=== PATIENT | male | born 1975 | race Hispanic/Latino ===

== ENCOUNTER 2018-04-10 16:14 | Emergency (ER) | payer SELFPAY ==
--- OUTSIDE RECORDS SUMMARY | 2018-04-10 16:17 | XMS REPORT | Clinical Summary ---
:[address] [facility] Address [address] [place] [address] Phone Care Team Providers Name Role Phone Unavailable Primary Care Provider Unavailable Allergies No Known Allergies Current Medications Prescription Sig. Disp. Refills Start Date End Date Status folic acid Take 1 tablet 30 tablet 3 04/14/2017 04/14/2018 Active (FOLVITE) 1 MG (1 mg total) tablet by mouth daily. losartan (COZAAR) Take 1 tablet 30 tablet 3 04/14/2017 04/14/2018 Active 25 MG tablet (25 mg total) by mouth daily. magnesium oxide Take 1 tablet 30 tablet 3 04/14/2017 04/14/2018 Active (MAG-OX) 400 mg (400 mg total) tablet by mouth daily. thiamine (VITAMIN Take 1 tablet 30 tablet 3 04/14/2017 04/14/2018 Active B-1) 50 MG tablet (50 mg total) by mouth daily. ALPRAZolam (XANAX) Take 1 tablet 30 tablet 0 04/14/2017 04/14/2017 Discontinued 0.5 MG tablet (0.5 mg total) by mouth 3 (three) times daily as needed for Anxiety for up to 30 days. Max Daily Amount: 1.5 mg folic acid Take 1 tablet 30 tablet 1 04/14/2017 04/14/2017 Discontinued (FOLVITE) 1 MG (1 mg total) tablet by mouth daily. losartan (COZAAR) Take 1 tablet 30 tablet 1 04/14/2017 04/14/2017 Discontinued 25 MG tablet (25 mg total) by mouth daily. thiamine (VITAMIN Take 1 tablet 30 tablet 1 04/14/2017 04/14/2017 Discontinued B-1) 50 MG tablet (50 mg total) by mouth daily. magnesium oxide Take 1 tablet 30 tablet 1 04/14/2017 04/14/2017 Discontinued (MAG-OX) 400 mg (400 mg total) tablet by mouth daily. pantoprazole Take 1 tablet 30 tablet 3 04/14/2017 05/14/2017 (PROTONIX) 40 MG (40 mg total) tablet by mouth daily for 30 days. amoxicillin-clavula Take 1 tablet 14 tablet 0 04/14/2017 04/21/2017 tatiana (AUGMENTIN) by mouth every 875-125 mg per 12 (twelve) tablet hours for 7 days. ALPRAZolam (XANAX) Take 1 tablet 30 tablet 0 04/14/2017 05/14/2017 0.5 MG tablet (0.5 mg total) by mouth 3 (three) times daily as needed for Anxiety for up to 30 days. Max Daily Amount: 1.5 mg predniSONE Take 1 tablet 5 tablet 0 04/14/2017 04/19/2017 (DELTASONE) 20 MG (20 mg total) tablet by mouth daily for 5 days. Active Problems Problem Noted Date Pneumonia, unspecified organism 04/08/2017 Encounters Date Type Specialty Care Team Description 2017 Procedure Pass 2017 Surgery Arslan Saini, BRONCHOSCOPY 04/11/2017 Anesthesia Event Dylan Ordonez MD 04/09/2017 Anesthesia Event Dylan Ordonez MD 04/09/2017 Procedure Pass 04/09/2017 Surgery Jus, UPPER ENDOSCOPY MD Vamsi 04/08/2017 - Hospital Encounter General Internal Bassam, Pneumonia, 04/14/2017 Medicine MD Lonnie unspecified organism Iraj Prado, (Primary Dx);Alcohol withdrawal, with unspecified complication (HCC);Hemoptysis after 04/09/2017 Social History Tobacco Use Types Packs/Day Years Used Date Current Some Day Smoker Cigarettes 0.1 Alcohol Use Drinks/Week oz/Week Comments Yes 120 Cans of beer 72.0 all beers/pt Sex Assigned at Date Recorded Not on file Last Filed Vital Signs Vital Sign Reading Time Taken Blood Pressure 135/92 04/14/2017 12:23 PM CDT Pulse 76 04/14/2017 12:23 PM CDT Temperature 36.7 C (98 F) 04/14/2017 12:23 PM CDT Respiratory Rate 18 04/14/2017 12:23 PM CDT Oxygen Saturation 99% 04/14/2017 12:23 PM CDT Inhaled Oxygen Concentration - - Weight 88.9 kg (196 lb) 2017 10:45 AM CDT Height 172.7 cm (5' 8") 2017 10:45 AM CDT Body Mass Index 29.8 2017 10:45 AM CDT Plan of Treatment Not on file Procedures Procedure Name Priority Date/Time Associated Diagnosis Comments BRONCHOSCOPY 2017 11:00 AM CDT HEMOPTASIS Case Notes BRONCH LAVAGE UPPER ENDOSCOPY 04/09/2017 8:48 AM CDT hematemesis, cirrhosis after 04/09/2017 Results RHYTHM STRIP - SCAN (04/15/2017 4:23 PM)CBC with platelet count + automated diff (04/14/2017 4:33 AM)Only the most recent of5 resultswithin the time period is included. Component Value Ref Range WBC 11.3 (H) 4.0 - 10.0 K/L RBC 4.72 4.20 - 5.80 M/L Hemoglobin 15.0 13.0 - 16.8 GM/DL Hematocrit 45.0 40.0 - 50.0 % MCV 95.3 82.0 - 98.0 fL MCH 31.7 27.0 - 33.0 pg MCHC 33.3 32.0 - 36.0 GM/DL RDW 13.2 12.0 - 15.0 % Platelets 208 150 - 430 K/CU MM MPV 9.2 6.5 - 10.5 fL nRBC 0 0 - 0 /100 WBC % Neutros 75 % % Lymphs 13 % % Monos 12 % % Eos 0 % % Baso 1 % # Neutros 8.40 (H) 1.80 - 8.00 K/L # Lymphs 1.40 (L) 1.48 - 4.50 K/L # Monos 1.30 0.00 - 1.30 K/L # Eos 0.00 0.00 - 0.50 K/L # Baso 0.10 0.00 - 0.20 K/L Specimen Performing Laboratory Blood [facility] [address] [place] [address] CBC with platelet count + automated diff (04/14/2017 4:33 AM)Only the most recent of5 resultswithin the time period is included. Specimen Performing Laboratory Blood Narrative The following orders were created for panel order CBC with platelet count + automated diff. Procedure Abnormality Status --------- ------ CBC with platelet count ...[[id number]]AbnormalFinal result Please view results for these tests on the individual orders. Phosphorus (04/14/2017 4:33 AM)Only the most recent of2 resultswithin the time period is included. Component Value Ref Range Phosphorus 4.7 (H) 2.5 - 4.5 mg/dL Specimen Performing Laboratory [facility] [address] [id number] Magnesium (04/14/2017 4:33 AM)Only the most recent of3 resultswithin the time period is included. Component Value Ref Range Magnesium 2.2 1.5 - 3.0 mg/dL [place] [address] Comprehensive metabolic panel (04/14/2017 4:33 AM)Only the most recent of5 resultswithin the time period is included. Component Value Ref Range Protein, Total 6.5 6.0 - 8.5 gm/dL Albumin 3.6 3.5 - 5.0 g/dL Alkaline Phosphatase 83 30 - 115 U/L Total Bilirubin 0.5 0.1 - 1.3 mg/dL Sodium 139 135 - 148 meq/L Potassium 4.6 3.5 - 5.5 meq/L Chloride 106 98 - 106 meq/L CO2 25 20 - 31 meq/L BUN 9 (L) 10 - 26 mg/dL Creatinine 0.83 0.50 - 1.20 mg/dL Glucose 120 (H) 70 - 110 mg/dL Calcium 8.9 8.5 - 10.5 mg/dL AST 25 5 - 40 U/L ALT 40 6 - 50 U/L EGFR 101Comment: ESTIMATED GFR IS NOT ACCURATE mL/min/1.73 sq m CREATININE CLEARANCE IN PREDICTING GLOMERULAR FILTRATION RATE. ESTIMATED GFR IS NOT APPLICABLE FOR DIALYSIS PATIENTS. Specimen Performing Laboratory [facility] [address] [place] [address] Procalcitonin (04/13/2017 4:31 AM)Only the most recent of2 resultswithin the time period is included. Component Value Ref Range Procalcitonin <0.05 <0.05 ng/mL Specimen Performing Laboratory [address] [place] [address] Narrative SEPSIS RISK (ng/mL) Low:0.05-0.50 Intermediate: 0.51-2.00 High: >=2.01 AFB culture + smear (2017 11:41 AM) Component Value Ref Range Result No acid-fast bacilli isolated in 42 days AFB Smear No acid fast bacilli seen Specimen Performing Laboratory Bronch Washing - Lung, Left Lower Lobe [address] [address] Legionella culture (2017 11:41 AM) Component Value Ref Range Result No Legionella species isolated Specimen Performing Laboratory Bronch Washing - Lung, Left Lower Lobe [address] [address] Bronchial culture + gram stain (2017 11:41 AM) Component Value Ref Range Result 1+ Normal respiratory melvi present Gram Stain Result 1+ WBCs Gram Stain Result No organisms seen Specimen Performing Laboratory Bronch Washing - Lung, Left Lower Lobe [facility] [id number] [place] [address] Virus culture Expected virus: unknown (2017 11:41 AM) Component Value Ref Range Result No virus isolated Specimen Performing Laboratory Bronch Washing - Lung, Left Lower Lobe [address] [address] Narrative This culture screens for the following viruses as appropriate to the specimen submitted: Adenovirus, Cytomegalovirus, Herpes simplex virus, Enterovirus, Respiratory syncytial virus, Varicella-zoster virus, Influenza virus, Parainfluenza viruses. Performing Laboratory: [facility] [employer]. [address] [place] [id number] Search Optimization Analyst: Xander Mendosa MD Fungus culture + smear (2017 11:41 AM) Component Value Ref Range Result No fungus isolated in 28 days Fungus Smear No fungi seen Specimen Performing Laboratory Bronch Washing - Lung, Left Lower Lobe [address] [address] Body fluid cell count with differential (2017 11:41 AM)Only the most recent of3 resultswithin the time period is included. Component Value Ref Range Appearance Bloody (A) Clear Color Red (A) Colorless, Straw RBCs [address] (H) <=1 /uL Adjusted WBC Count 2936 (H) <=5 /cu mm Lining Cells 88 (H) <=1 /cu mm % Segs 28 % % Lymphs 28 % % Monos 42 % % Eos 2 % % Baso 0 % Interpretation No malignant cells identified. Pathologist: Raheem Perkins D.O. (electronic signature) Container Body Fluid EDTA Tube Specimen Performing Laboratory Body Fluid - Lung, Left Lower Lobe [facility] [address] [place] [address] SPIN/CONCENTRATION CHARGE (2017 11:41 AM) Component Value Ref Range Concentration charged Done Specimen Performing Laboratory Bronch Washing - Lung, Left Lower Lobe [facility] [address] [address] Cytology (2017 11:36 AM) Component Value Ref Range Cytology See Separate Report Specimen Performing Laboratory Bronch Washing - Lung, Left Lower Lobe [facility] [address] [place] [address] Cytology (2017 11:36 AM) Component Value Ref Range Case Report Medical Cytology Report Case: [id number] Authorizing Provider:Arslan Saini MD Collected: 2017 1136 Ordering Location: [address] MEDICAL SURGERYReceived: 2017 1252 Pathologist: Raheem Perkins DO Specimen:Lung, Left Lower Lobe DIAGNOSIS LEFT LOWER LOBE LUNG, BRONCHIAL WASHING: - NO MALIGNANT CELLS IDENTIFIED CPT Code(s) 96120 CLINICAL DATA hemoptysis SPECIMEN SOURCE Left lower lobe lung GROSS DESCRIPTION Collected: 2017 1136 Received: 2017 1355 5 ml bloody fluid received fresh; 4 cytospins STATEMENT OF ADEQUACY Satisfactory Gross assessment was performed at [facility], Department of Pathology, [id number] [place] [address], Technical component was performed at [facility], Department of Pathology, [address] [place] [address], Professional component was performed [facility], at Department of Pathology, [address] [place], [place] [address], Specimen Performing Laboratory Bronch Washing - Lung, Left Lower Lobe [facility] [address] [place] [address] XR chest 1 view portable / bedside (2017 4:02 AM) Specimen Performing Laboratory [facility] Narrative FINAL REPORT Examination: RAD, CHEST, 1 VIEW, NON DEPT Indication:cough Comparison: April 08, 2017 Findings: Right jugular central line has been removed. Cardiomediastinal silhouette is normal. No pneumothorax, pleural effusion or consolidation. Bones are normal. Impression: No acute cardiopulmonary process identified. Signed: Luis Patel MD Report Verified Date/Time:2017 04:13:31 Reading Location: [address] Transitional Reading Room Procedure Note Interface, External Ris In - 2017 4:15 AM CDT FINAL REPORT Examination: RAD, CHEST, 1 VIEW, NON DEPT Indication: cough Comparison: April 08, 2017 Findings: Right jugular central line has been removed. Cardiomediastinal silhouette is normal. No pneumothorax, pleural effusion or consolidation. Bones are normal. Impression: No acute cardiopulmonary process identified. Signed: Luis Patel MD Report Verified Date/Time: 2017 04:13:31 Reading Location: [facility] Transitional Reading Room Hemoglobin and hematocrit (2017 4:01 AM)Only the most recent of5 resultswithin the time period is included. Component Value Ref Range Hemoglobin 15.2 13.0 - 16.8 GM/DL Hematocrit 45.7 40.0 - 50.0 % Specimen Performing Laboratory Blood [facility] [address] [place] [address] CT neck soft tissue without & with IV contrast (04/10/2017 5:19 PM) Specimen Performing Laboratory [facility] Impressions : 1. No evident hemorrhage in the neck soft tissues. 2. No suspicious soft tissue mass or cervical adenopathy. 3. Chronic sinus disease and cervical spine degenerative changes. Signed: Renetta Donato MD Report Verified Date/Time:04/10/2017 17:33:18 Reading Location: [address] Neuro Reading Room Narrative FINAL REPORT CT Neck with and without contrast INDICATION: Hemoptysis. TECHNIQUE: Axial pre and post intravenous contrast enhanced CT images of the neck were obtained. Coronal and sagittal reconstruction images were generated. This exam was performed according to our departmental dose optimization program which includes automated exposure control, adjustment of the mA and/or kV according to patient size and/or use of iterative reconstruction technique. COMPARISON: None available. FINDINGS: There is no evident hemorrhage in the neck soft tissues. Specifically, no focal hematoma or hemorrhagic lesion is seen. The uvula is posteriorly displaced against the posterior pharyngeal wall and the vocal cords are apposed due to phase of respiration. Otherwise, no aerodigestive tract mass is seen. There are scattered subcentimeter cervical lymph nodes, but no suspicious adenopathy by size criteria. There is partial fatty atrophy of the submandibular and parotid glands. The thyroid gland is unremarkable. The major cervical vascular structures are patent. Cervical spine degenerative changes are present without high-grade canal stenosis. There is mild chronic ethmoid and maxillary sinus mucosal disease. The mastoid air cells are well aerated. The globes appear proptotic. The imaged brain demonstrates no acute abnormality. There is an incidental unerupted tooth within the hard palate. Procedure Note Interface, External Ris In - 04/10/2017 5:35 PM CDT FINAL REPORT CT Neck with and without contrast INDICATION: Hemoptysis. TECHNIQUE: Axial pre and post intravenous contrast enhanced CT images of the neck were obtained. Coronal and sagittal reconstruction images were generated. This exam was performed according to our departmental dose optimization program which includes automated exposure control, adjustment of the mA and/or kV according to patient size and/or use of iterative reconstruction technique. COMPARISON: None available. FINDINGS: There is no evident hemorrhage in the neck soft tissues. Specifically, no focal hematoma or hemorrhagic lesion is seen. The uvula is posteriorly displaced against the posterior pharyngeal wall and the vocal cords are apposed due to phase of respiration. Otherwise, no aerodigestive tract mass is seen. There are scattered subcentimeter cervical lymph nodes, but no suspicious adenopathy by size criteria. There is partial fatty atrophy of the submandibular and parotid glands. The thyroid gland is unremarkable. The major cervical vascular structures are patent. Cervical spine degenerative changes are present without high-grade canal stenosis. There is mild chronic ethmoid and maxillary sinus mucosal disease. The mastoid air cells are well aerated. The globes appear proptotic. The imaged brain demonstrates no acute abnormality. There is an incidental unerupted tooth within the hard palate. IMPRESSION : 1. No evident hemorrhage in the neck soft tissues. 2. No suspicious soft tissue mass or cervical adenopathy. 3. Chronic sinus disease and cervical spine degenerative changes. Signed: Renetta Donato MD Report Verified Date/Time: 04/10/2017 17:33:18 Reading Location: [facility] C013 Neuro Reading Room chest without IV contrast (04/10/2017 5:05 PM) Specimen Performing Laboratory [employer] Narrative FINAL REPORT CT of the Chest dated 04/10/2017 CLINICAL INFORMATION: coughing blood. evaluate for any interval change. Comment:Axial images of the chest were obtained from thoracic inlet to the upper abdomen without intravenous contrast. This exam was performed according to our departmental dose-optimization program, which includes automated exposure control, adjustment of the mA and/or kV according to patient size and/or use of interactive reconstruction technique. Heart is normal in size.Great vessels are unremarkable. No adenopathy in the mediastinum or perihilar region. Trachea and mainstem bronchi are patent. Subsegmental atelectasis is seen in the lingula and both lung bases. There is interval worsening of groundglass pulmonary parenchyma disease in the left lower lobe. Differential diagnosis for the groundglass pulmonary parenchymal disease is the following: usual interstitial pneumonia, nonspecific interstitial pneumonitis, desquamative interstitial pneumonia, hypersensitivity pneumonitis, pulmonary edema or pulmonary hemorrhage. No pleural effusion or pleural based mass is seen. Visualized upper abdomen demonstrates diffusely decreased attenuation in the liver consistent with fatty hepatic infiltrate. Impression: 1. Interval worsening of the groundglass pulmonary parenchyma disease in the left lower lobe. 2. Bibasilar and lingular subsegmental atelectasis. 3. Fatty liver. Signed: Mell Vera MD Report Verified Date/Time:04/10/2017 17:30:27 Reading Location: [facility] B1 C013X Ortho Consult Reading Room Procedure Note Interface, External Ris In - 04/10/2017 5:32 PM CDT FINAL REPORT CT of the Chest dated 04/10/2017 CLINICAL INFORMATION: coughing blood. evaluate for any interval change. Comment: Axial images of the chest were obtained from thoracic inlet to the upper abdomen without intravenous contrast. This exam was performed according to our departmental dose-optimization program, which includes automated exposure control, adjustment of the mA and/or kV according to patient size and/or use of interactive reconstruction technique. Heart is normal in size. Great vessels are unremarkable. No adenopathy in the mediastinum or perihilar region. Trachea and mainstem bronchi are patent. Subsegmental atelectasis is seen in the lingula and both lung bases. There is interval worsening of groundglass pulmonary parenchyma disease in the left lower lobe. Differential diagnosis for the groundglass pulmonary parenchymal disease is the following: usual interstitial pneumonia, nonspecific interstitial pneumonitis, desquamative interstitial pneumonia, hypersensitivity pneumonitis, pulmonary edema or pulmonary hemorrhage. No pleural effusion or pleural based mass is seen. Visualized upper abdomen demonstrates diffusely decreased attenuation in the liver consistent with fatty hepatic infiltrate. Impression: 1. Interval worsening of the groundglass pulmonary parenchyma disease in the left lower lobe. 2. Bibasilar and lingular subsegmental atelectasis. 3. Fatty liver. Signed: Mell Vera MD Report Verified Date/Time: 04/10/2017 17:30:27 Reading Location: [facility] B1 C013X Ortho Consult Reading Room SFUSION SERVICE REPORT - SCAN (04/09/2017 5:40 PM)Central Line Insertion ( 04/09/2017 9:48 AM) Anna Padron NP 04/08/2017 11:39 PM CENTRAL LINE PLACEMENT Patient: Virgil Ryan Age: 41 y.o. Date: 04/08/2017 Procedure: Central Line Placement Site: internal jugular vein, Right Diagnosis/Indication: Poor venous access, multiple incompatible IVPB, blood product repletion in the setting of GIB Consent: This procedure, risks, benefits and alternatives have been fully reviewed with the Patient/Family and written informed consent has been obtained. Anesthesia: 2 ml of 1% lidocaine Ultrasound: Used Procedure note: The site was prepped and draped in a sterile fashion with chlorhexidine. Right internal jugular vein access done with finder needle. Good blood return was seen. Guidewire inserted and needle removed. Path dilated with dilator. Triple lumen catheter inserted over guidewire and guidewire removed. Good blood return in all ports. Ports flushed with saline. Catheter secured in position at 15 cm with sutures. Dressing placed. Plan: chest X-ray pending EBL: 1 ml Complications: None Anna Gilmore NP 04/08/2017 11:37 PM Prothrombin time/INR (04/09/2017 3:55 AM) Component Value Ref Range Protime 16.7 (H) 11.8 - 14.4 seconds INR 1.4 1.2 - 1.5 Specimen Performing Laboratory Blood [facility] [address] [place] [address] Narrative RECOMMENDED COUMADIN/WARFARIN INR THERAPY RANGES STANDARD DOSE: 2.0 - 3.0 Includes: PROPHYLAXIS for venous thrombosis, systemic embolization; TREATMENT for venous thrombosis and/or pulmonary embolus. HIGH RISK: Target INR is 2.5-3.5 for patients with mechanical heart valves. after 04/09/2017
--- OUTSIDE RECORDS SUMMARY | 2018-04-10 16:18 | XMS REPORT ---
:1975 [facility] Address [address] [place] [address] Care Team Providers Name Role Phone CHANTAL MACIAS Unavailable Unavailable Problems This patient has no known problems. Allergies, Adverse Reactions, Alerts This patient has no known allergies or adverse reactions. Medications This patient has no known medications. Results Test Description Test Time Test Comments Text Results Atomic Results Result Comments AFB CULTURE + SMEAR 2017-05-30 17:17:00 Test Item Value Reference Range Comments CULTURE (BEAKER) (test jfex=9334) No acid-fast bacilli isolated in 42 days AFB SMEAR (BEAKER) (test kgxi=293) No acid fast bacilli seen VIRUS [id number] 12:44:00 Test Item Value Reference Range Comments CULTURE (BEAKER) (test ijod=8244) No virus isolated This culture screens for the following viruses as appropriate to the specimen submitted: Adenovirus,Cytomegalovirus, Herpes simplex virus, Enterovirus, Respiratory syncytial virus, Varicella-zoster virus, Influenza virus, Parainfluenza viruses. Performing Laboratory: [facility], [employer]. [address] [place] [id number] Net C Developer: Xander THORNTON CULTURE + [id number] 07:57:00 Test Item Value Reference Range Comments CULTURE (BEAKER) (test No fungus isolated in 28 days sqzx=0349) FUNGUS SMEAR (BEAKER) (test No fungi seen tofb=0922) LEGIONELLA [id number] 14:56:00 Test Item Value Reference Range Comments CULTURE (BEAKER) (test No Legionella species isolated dijp=1006) BRONCHIAL CULTURE + GRAM [id number] 13:37:00 Test Item Value Reference Range Comments CULTURE (BEAKER) (test 1+ Normal respiratory melvi rlea=9739) present GRAM STAIN RESULT (BEAKER) 1+ WBCs (test wupu=1806) GRAM STAIN RESULT (BEAKER) No organisms seen (test siuc=49610) [id number] 05:12:00 Test Item Value Reference Range Comments PHOSPHORUS (BEAKER) (test vnzc=591) 4.7 mg/dL 2.5-4.5 [id number] 05:12:00 Test Item Value Reference Range Comments MAGNESIUM (BEAKER) (test iuew=443) 2.2 mg/dL 1.5-3.0 COMPREHENSIVE METABOLIC [id number] 05:12:00 Test Item Value Reference Range Comments TOTAL PROTEIN (BEAKER) 6.5 gm/dL 6.0-8.5 (test ogfg=846) ALBUMIN (BEAKER) (test 3.6 g/dL 3.5-5.0 rlme=0387) ALKALINE PHOSPHATASE 83 U/L 30-115 (BEAKER) (test ncwk=283) BILIRUBIN TOTAL (BEAKER) 0.5 mg/dL 0.1-1.3 (test jthu=532) SODIUM (BEAKER) (test 139 meq/L 135-148 dtgx=412) POTASSIUM (BEAKER) (test 4.6 meq/L 3.5-5.5 fpyb=403) CHLORIDE (BEAKER) (test 106 meq/L 98-106 klkt=842) CO2 (BEAKER) (test 25 meq/L 20-31 gquf=452) BLOOD UREA NITROGEN 9 mg/dL 10-26 (BEAKER) (test odxz=585) CREATININE (BEAKER) (test 0.83 mg/dL 0.50-1.20 hgyu=396) GLUCOSE RANDOM (BEAKER) 120 mg/dL 70-110 (test bjpw=937) CALCIUM (BEAKER) (test 8.9 mg/dL 8.5-10.5 cbad=756) AST (SGOT) (BEAKER) (test 25 U/L 5-40 xgia=058) ALT (SGPT) (BEAKER) (test 40 U/L 6-50 godu=556) EGFR (BEAKER) (test 101 mL/min/1.73 sq ESTIMATED GFR IS NOT czjl=5878) m ACCURATE CREATININE CLEARANCE IN PREDICTING GLOMERULAR FILTRATION RATE. ESTIMATED GFR IS NOT APPLICABLE FOR DIALYSIS PATIENTS. CBC W/PLT COUNT & AUTO [id number] 04:43:00 Test Item Value Reference Range Comments WHITE BLOOD CELL COUNT (BEAKER) (test qbhp=312) 11.3 K/ L 4.0-10.0 RED BLOOD CELL COUNT (BEAKER) (test obgh=374) 4.72 M/ L 4.20-5.80 HEMOGLOBIN (BEAKER) (test maqf=058) 15.0 GM/DL 13.0-16.8 HEMATOCRIT (BEAKER) (test pgro=813) 45.0 % 40.0-50.0 MEAN CORPUSCULAR VOLUME (BEAKER) (test lrzf=250) 95.3 fL 82.0-98.0 MEAN CORPUSCULAR HEMOGLOBIN (BEAKER) (test 31.7 pg 27.0-33.0 dyvr=338) MEAN CORPUSCULAR HEMOGLOBIN CONC (BEAKER) (test 33.3 GM/DL 32.0-36.0 hwiy=108) RED CELL DISTRIBUTION WIDTH (BEAKER) (test 13.2 % 12.0-15.0 gvjf=354) PLATELET COUNT (BEAKER) (test kmzs=606) 208 K/CU MM 150-430 MEAN PLATELET VOLUME (BEAKER) (test mskq=801) 9.2 fL 6.5-10.5 NUCLEATED RED BLOOD CELLS (BEAKER) (test 0 /100 WBC 0-0 ersl=623) NEUTROPHILS RELATIVE PERCENT (BEAKER) (test 75 % neec=773) LYMPHOCYTES RELATIVE PERCENT (BEAKER) (test 13 % aftg=296) MONOCYTES RELATIVE PERCENT (BEAKER) (test 12 % jeus=150) EOSINOPHILS RELATIVE PERCENT (BEAKER) (test 0 % hddv=765) BASOPHILS RELATIVE PERCENT (BEAKER) (test 1 % symp=138) NEUTROPHILS ABSOLUTE COUNT (BEAKER) (test 8.40 K/ L 1.80-8.00 ywnn=983) LYMPHOCYTES ABSOLUTE COUNT (BEAKER) (test 1.40 K/ L 1.48-4.50 ecbe=985) MONOCYTES ABSOLUTE COUNT (BEAKER) (test 1.30 K/ L 0.00-1.30 whew=684) EOSINOPHILS ABSOLUTE COUNT (BEAKER) (test 0.00 K/ L 0.00-0.50 zsxc=415) BASOPHILS ABSOLUTE COUNT (BEAKER) (test 0.10 K/ L 0.00-0.20 nvku=036) SPIN/CONCENTRATION [id number] 14:08:00 Test Item Value Reference Range Comments CONCENTRATION CHARGED (BEAKER) (test uryr=1951) Done [id number] 05:23:00 Test Item Value Reference Range Comments PROCALCITONIN (BEAKER) (test mkkj=3297) < ng/mL <0.05 SEPSIS RISK (ng/mL)Low: 0.05-0.50Intermediate: 0.51-2.00High: & gt;=[id number] 05:07:00 Test Item Value Reference Range Comments PHOSPHORUS (BEAKER) (test mgql=825) 4.2 mg/dL 2.5-4.5 [id number] 05:07:00 Test Item Value Reference Range Comments MAGNESIUM (BEAKER) (test gcmj=274) 2.3 mg/dL 1.5-3.0 COMPREHENSIVE METABOLIC [id number] 05:07:00 Test Item Value Reference Range Comments TOTAL PROTEIN (BEAKER) 6.7 gm/dL 6.0-8.5 (test gvht=040) ALBUMIN (BEAKER) (test 3.7 g/dL 3.5-5.0 rkqh=9399) ALKALINE PHOSPHATASE 70 U/L 30-115 (BEAKER) (test buoq=796) BILIRUBIN TOTAL (BEAKER) 0.6 mg/dL 0.1-1.3 (test vyhk=028) SODIUM (BEAKER) (test 138 meq/L 135-148 potw=566) POTASSIUM (BEAKER) (test 4.5 meq/L 3.5-5.5 xvtm=782) CHLORIDE (BEAKER) (test 105 meq/L 98-106 estv=912) CO2 (BEAKER) (test 24 meq/L 20-31 onda=169) BLOOD UREA NITROGEN 10 mg/dL 10-26 (BEAKER) (test vdne=208) CREATININE (BEAKER) (test 0.85 mg/dL 0.50-1.20 fali=910) GLUCOSE RANDOM (BEAKER) 167 mg/dL 70-110 (test dnhh=654) CALCIUM (BEAKER) (test 8.9 mg/dL 8.5-10.5 zhzx=356) AST (SGOT) (BEAKER) (test 27 U/L 5-40 vamq=174) ALT (SGPT) (BEAKER) (test 39 U/L 6-50 cpmh=639) EGFR (BEAKER) (test 98 mL/min/1.73 sq m ESTIMATED GFR IS NOT bnza=0629) ACCURATE CREATININE CLEARANCE IN PREDICTING GLOMERULAR FILTRATION RATE. ESTIMATED GFR IS NOT APPLICABLE FOR DIALYSIS PATIENTS. CBC W/PLT COUNT & AUTO [id number] 04:41:00 Test Item Value Reference Range Comments WHITE BLOOD CELL COUNT (BEAKER) (test bniv=088) 10.8 K/ L 4.0-10.0 RED BLOOD CELL COUNT (BEAKER) (test ukiu=916) 4.55 M/ L 4.20-5.80 HEMOGLOBIN (BEAKER) (test tuwx=195) 14.4 GM/DL 13.0-16.8 HEMATOCRIT (BEAKER) (test fhve=625) 43.8 % 40.0-50.0 MEAN CORPUSCULAR VOLUME (BEAKER) (test evgi=125) 96.2 fL 82.0-98.0 MEAN CORPUSCULAR HEMOGLOBIN (BEAKER) (test 31.7 pg 27.0-33.0 gpct=739) MEAN CORPUSCULAR HEMOGLOBIN CONC (BEAKER) (test 33.0 GM/DL 32.0-36.0 kyvs=910) RED CELL DISTRIBUTION WIDTH (BEAKER) (test 12.8 % 12.0-15.0 hpih=969) PLATELET COUNT (BEAKER) (test linn=760) 199 K/CU MM 150-430 MEAN PLATELET VOLUME (BEAKER) (test trvt=032) 9.3 fL 6.5-10.5 NUCLEATED RED BLOOD CELLS (BEAKER) (test 0 /100 WBC 0-0 vxkw=902) NEUTROPHILS RELATIVE PERCENT (BEAKER) (test 82 % fptq=835) LYMPHOCYTES RELATIVE PERCENT (BEAKER) (test 9 % bbxo=038) MONOCYTES RELATIVE PERCENT (BEAKER) (test 9 % rypu=528) EOSINOPHILS RELATIVE PERCENT (BEAKER) (test 0 % mqzz=891) BASOPHILS RELATIVE PERCENT (BEAKER) (test 1 % kymo=281) NEUTROPHILS ABSOLUTE COUNT (BEAKER) (test 8.80 K/ L 1.80-8.00 auhw=457) LYMPHOCYTES ABSOLUTE COUNT (BEAKER) (test 1.00 K/ L 1.48-4.50 hljo=410) MONOCYTES ABSOLUTE COUNT (BEAKER) (test 0.90 K/ L 0.00-1.30 fvpl=167) EOSINOPHILS ABSOLUTE COUNT (BEAKER) (test 0.00 K/ L 0.00-0.50 yvxd=466) BASOPHILS ABSOLUTE COUNT (BEAKER) (test 0.10 K/ L 0.00-0.20 svgd=430) [id number] 16:44:00Medical Cytology Report Case: [id number] Authorizing Provider: Arslan Saini MD Collected: 2017 1136 Ordering Location: [address] MEDICAL SURGERY Received: 2017 1252 Pathologist: Raheem Perkins DO Specimen: Lung, Left Lower Lobe LEFT LOWER LOBE LUNG, BRONCHIAL WASHING: - NO MALIGNANT CELLS IDENTIFIED [id number] lower lobe lungCollected : 2017 1136Received: 2017 71982 ml bloody fluid received fresh; [address] cytospinsSatisfactorySt. [facility], [facility] , [address] [place] [address], [facility], Department of Pathology, [address] [place] [address], [facility], Department of Pathology, [address] [place] [address], AWCN FLUID CELL COUNT WITH [id number] 16:38:00 Test Item Value Reference Range Comments APPEARANCE FLUID (BEAKER) (test Bloody Clear sept=485) COLOR FLUID (BEAKER) (test Red Colorless, Straw ooyl=944) RBC FLUID (BEAKER) (test 01245 /uL <=1 uacu=320) ADJUSTED WBC FLUID (BEAKER) 1328 /cu mm <=5 (test crwf=4790) LINING CELLS (BEAKER) (test 133 /cu mm <=1 fzbi=0974) NEUTROPHILS FLUID (BEAKER) 43 % (test qlgh=2966) LYMPHS FLUID (BEAKER) (test 27 % urbj=018) MONO/MACROPHAGE FLUID (BEAKER) 29 % (test bcro=515) EOSINOPHILS FLUID (BEAKER) 1 % (test kerf=525) BASO FLUID (BEAKER) (test 0 % ffkw=363) INTERPRETATION-210 (BEAKER) No malignant cells (test uykg=7586) identified. AHKE-GWXEQHLAWYC-024 (BEAKER) Raheem Perkins D.O. (test qiim=8438) (electronic signature) CONTAINER BODY FLUID (BEAKER) EDTA Tube (test vjzp=2577) BODY FLUID CELL COUNT WITH [id number] 16:38:00 Test Item Value Reference Range Comments APPEARANCE FLUID (BEAKER) (test Bloody Clear ocjg=878) COLOR FLUID (BEAKER) (test Red Colorless, Straw dyti=391) RBC FLUID (BEAKER) (test 02447 /uL <=1 saub=321) ADJUSTED WBC FLUID (BEAKER) 2751 /cu mm <=5 (test dxth=2848) LINING CELLS (BEAKER) (test 275 /cu mm <=1 qozj=5352) NEUTROPHILS FLUID (BEAKER) 28 % (test vamf=0931) LYMPHS FLUID (BEAKER) (test 37 % rnds=207) MONO/MACROPHAGE FLUID (BEAKER) 35 % (test dbzm=815) EOSINOPHILS FLUID (BEAKER) 0 % (test lfth=691) BASO FLUID (BEAKER) (test 0 % cdrd=163) INTERPRETATION-210 (BEAKER) No malignant cells (test livj=2174) identified. WVTA-GNDCGQXSUTW-389 (BEAKER) Raheem Perkins D.O. (test qijv=5721) (electronic signature) CONTAINER BODY FLUID (BEAKER) EDTA Tube (test lwvi=1197) BODY FLUID CELL COUNT WITH [id number] 16:38:00 Test Item Value Reference Range Comments APPEARANCE FLUID (BEAKER) (test Bloody Clear tuww=987) COLOR FLUID (BEAKER) (test Red Colorless, Straw qybs=085) RBC FLUID (BEAKER) (test 86781 /uL <=1 kdho=757) ADJUSTED WBC FLUID (BEAKER) 2936 /cu mm <=5 (test dgro=5429) LINING CELLS (BEAKER) (test 88 /cu mm <=1 vuzi=0602) NEUTROPHILS FLUID (BEAKER) 28 % (test zigh=2810) LYMPHS FLUID (BEAKER) (test 28 % xjye=741) MONO/MACROPHAGE FLUID (BEAKER) 42 % (test tuit=916) EOSINOPHILS FLUID (BEAKER) 2 % (test heut=892) BASO FLUID (BEAKER) (test 0 % ujhs=917) INTERPRETATION-210 (BEAKER) No malignant cells (test ivfh=2135) identified. LIXJ-SCHEVKGJHNG-986 (BEAKER) Raheem Perkins D.O. (test vssh=8207) (electronic signature) CONTAINER BODY FLUID (BEAKER) EDTA Tube (test pymj=1744) CYTOLOGY [id number] 14:00:00 Test Item Value Reference Range Comments CYTOLOGY RESULT POINTER (BEAKER) (test See Separate Report cryr=7415) HEMOGLOBIN AND [id number] 04:44:00 Test Item Value Reference Range Comments HEMOGLOBIN (BEAKER) (test ycdj=091) 15.2 GM/DL 13.0-16.8 HEMATOCRIT (BEAKER) (test vqwm=953) 45.7 % 40.0-50.0 HEMOGLOBIN AND [id number] 14:28:00 Test Item Value Reference Range Comments HEMOGLOBIN (BEAKER) (test ijrn=081) 16.1 GM/DL 13.0-16.8 HEMATOCRIT (BEAKER) (test wdgr=980) 49.2 % 40.0-50.0 COMPREHENSIVE METABOLIC [id number] 05:58:00 Test Item Value Reference Range Comments TOTAL PROTEIN (BEAKER) 7.1 gm/dL 6.0-8.5 (test zzww=371) ALBUMIN (BEAKER) (test 3.9 g/dL 3.5-5.0 bvsf=1545) ALKALINE PHOSPHATASE 57 U/L 30-115 (BEAKER) (test zgpw=880) BILIRUBIN TOTAL (BEAKER) 0.9 mg/dL 0.1-1.3 (test nujd=604) SODIUM (BEAKER) (test 139 meq/L 135-148 irdy=464) POTASSIUM (BEAKER) (test 4.2 meq/L 3.5-5.5 umgd=286) CHLORIDE (BEAKER) (test 104 meq/L 98-106 wfdh=593) CO2 (BEAKER) (test 27 meq/L 20-31 apuw=128) BLOOD UREA NITROGEN 8 mg/dL 10-26 (BEAKER) (test sgsk=812) CREATININE (BEAKER) (test 0.84 mg/dL 0.50-1.20 ymmm=238) GLUCOSE RANDOM (BEAKER) 121 mg/dL 70-110 (test uvcn=667) CALCIUM (BEAKER) (test 9.0 mg/dL 8.5-10.5 ncoy=456) AST (SGOT) (BEAKER) (test 32 U/L 5-40 feyj=527) ALT (SGPT) (BEAKER) (test 46 U/L 6-50 xvbs=324) EGFR (BEAKER) (test 100 mL/min/1.73 sq ESTIMATED GFR IS NOT ycnm=5857) m ACCURATE CREATININE CLEARANCE IN PREDICTING GLOMERULAR FILTRATION RATE. ESTIMATED GFR IS NOT APPLICABLE FOR DIALYSIS PATIENTS. CBC W/PLT COUNT & AUTO [id number] 05:34:00 Test Item Value Reference Range Comments WHITE BLOOD CELL COUNT (BEAKER) (test fmlh=701) 9.2 K/ L 4.0-10.0 RED BLOOD CELL COUNT (BEAKER) (test mcvk=120) 4.76 M/ L 4.20-5.80 HEMOGLOBIN (BEAKER) (test kjrm=206) 14.9 GM/DL 13.0-16.8 HEMATOCRIT (BEAKER) (test hfab=890) 45.2 % 40.0-50.0 MEAN CORPUSCULAR VOLUME (BEAKER) (test mvjw=447) 95.0 fL 82.0-98.0 MEAN CORPUSCULAR HEMOGLOBIN (BEAKER) (test 31.4 pg 27.0-33.0 igpk=987) MEAN CORPUSCULAR HEMOGLOBIN CONC (BEAKER) (test 33.0 GM/DL 32.0-36.0 klbd=804) RED CELL DISTRIBUTION WIDTH (BEAKER) (test 12.8 % 12.0-15.0 ckaj=527) PLATELET COUNT (BEAKER) (test wmtq=851) 162 K/CU MM 150-430 MEAN PLATELET VOLUME (BEAKER) (test rigg=885) 9.1 fL 6.5-10.5 NUCLEATED RED BLOOD CELLS (BEAKER) (test 0 /100 WBC 0-0 zqdu=860) NEUTROPHILS RELATIVE PERCENT (BEAKER) (test 81 % umgl=524) LYMPHOCYTES RELATIVE PERCENT (BEAKER) (test 9 % mtal=261) MONOCYTES RELATIVE PERCENT (BEAKER) (test 9 % slcw=969) EOSINOPHILS RELATIVE PERCENT (BEAKER) (test 0 % izto=965) BASOPHILS RELATIVE PERCENT (BEAKER) (test 0 % diid=918) NEUTROPHILS ABSOLUTE COUNT (BEAKER) (test 7.50 K/ L 1.80-8.00 vprn=247) LYMPHOCYTES ABSOLUTE COUNT (BEAKER) (test 0.90 K/ L 1.48-4.50 qgcj=152) MONOCYTES ABSOLUTE COUNT (BEAKER) (test 0.80 K/ L 0.00-1.30 cryz=541) EOSINOPHILS ABSOLUTE COUNT (BEAKER) (test 0.00 K/ L 0.00-0.50 prad=958) BASOPHILS ABSOLUTE COUNT (BEAKER) (test 0.00 K/ L 0.00-0.20 hjfo=100) HEMOGLOBIN AND [id number] 05:33:00 Test Item Value Reference Range Comments HEMOGLOBIN (BEAKER) (test bdkc=182) 14.9 GM/DL 13.0-16.8 HEMATOCRIT (BEAKER) (test rzlb=686) 45.2 % 40.0-50.0 SPUTUM CULTURE + GRAM [id number] 13:19:00 Test Item Value Reference Range Comments CULTURE (BEAKER) 1+ Streptococcus not group A (test fclx=1460) beta hemolyticIdentified by serological grouping. GRAM STAIN RESULT 1+ WBCs (BEAKER) (test vefs=3570) GRAM STAIN RESULT 0-5 epithelial cells (BEAKER) (test sakn=289585) GRAM STAIN RESULT 1+ gram positive (BEAKER) (test cocci in pairs owlg=241443) GRAM STAIN RESULT <1+ gram negative (BEAKER) (test rods niga=608904) 3+ Normal respiratory melvi presentCOMPREHENSIVE METABOLIC [id number] 04:42 :00 Test Item Value Reference Range Comments TOTAL PROTEIN (BEAKER) 7.1 gm/dL 6.0-8.5 (test ixmn=097) ALBUMIN (BEAKER) (test 3.9 g/dL 3.5-5.0 izao=5348) ALKALINE PHOSPHATASE 62 U/L 30-115 (BEAKER) (test ndlj=486) BILIRUBIN TOTAL (BEAKER) 1.2 mg/dL 0.1-1.3 (test qnfy=639) SODIUM (BEAKER) (test 138 meq/L 135-148 uyfi=439) POTASSIUM (BEAKER) (test 3.5 meq/L 3.5-5.5 ieua=290) CHLORIDE (BEAKER) (test 103 meq/L 98-106 dpaz=128) CO2 (BEAKER) (test 25 meq/L 20-31 celx=428) BLOOD UREA NITROGEN 9 mg/dL 10-26 (BEAKER) (test oxkf=987) CREATININE (BEAKER) (test 0.88 mg/dL 0.50-1.20 wlfp=381) GLUCOSE RANDOM (BEAKER) 93 mg/dL 70-110 (test nbzc=772) CALCIUM (BEAKER) (test 8.7 mg/dL 8.5-10.5 fiyt=804) AST (SGOT) (BEAKER) (test 40 U/L 5-40 vnoi=827) ALT (SGPT) (BEAKER) (test 54 U/L 6-50 hixv=577) EGFR (BEAKER) (test 95 mL/min/1.73 sq m ESTIMATED GFR IS NOT fhgl=0141) ACCURATE CREATININE CLEARANCE IN PREDICTING GLOMERULAR FILTRATION RATE. ESTIMATED GFR IS NOT APPLICABLE FOR DIALYSIS PATIENTS. HEMOGLOBIN AND [id number] 04:14:00 Test Item Value Reference Range Comments HEMOGLOBIN (BEAKER) (test esqj=822) 15.1 GM/DL 13.0-16.8 HEMATOCRIT (BEAKER) (test dbns=443) 45.8 % 40.0-50.0 CBC W/PLT COUNT & AUTO [id number] 04:14:00 Test Item Value Reference Range Comments WHITE BLOOD CELL COUNT (BEAKER) (test kvln=747) 7.8 K/ L 4.0-10.0 RED BLOOD CELL COUNT (BEAKER) (test jzma=212) 4.79 M/ L 4.20-5.80 HEMOGLOBIN (BEAKER) (test vsli=777) 15.1 GM/DL 13.0-16.8 HEMATOCRIT (BEAKER) (test ewhr=391) 45.8 % 40.0-50.0 MEAN CORPUSCULAR VOLUME (BEAKER) (test ggov=983) 95.7 fL 82.0-98.0 MEAN CORPUSCULAR HEMOGLOBIN (BEAKER) (test 31.6 pg 27.0-33.0 hbbt=400) MEAN CORPUSCULAR HEMOGLOBIN CONC (BEAKER) (test 33.1 GM/DL 32.0-36.0 mfld=466) RED CELL DISTRIBUTION WIDTH (BEAKER) (test 12.8 % 12.0-15.0 uwpq=363) PLATELET COUNT (BEAKER) (test pilb=599) 132 K/CU MM 150-430 MEAN PLATELET VOLUME (BEAKER) (test hisy=102) 9.3 fL 6.5-10.5 NUCLEATED RED BLOOD CELLS (BEAKER) (test 0 /100 WBC 0-0 yuag=309) NEUTROPHILS RELATIVE PERCENT (BEAKER) (test 70 % izxi=768) LYMPHOCYTES RELATIVE PERCENT (BEAKER) (test 16 % ekhq=395) MONOCYTES RELATIVE PERCENT (BEAKER) (test 10 % ufne=921) EOSINOPHILS RELATIVE PERCENT (BEAKER) (test 3 % bjon=664) BASOPHILS RELATIVE PERCENT (BEAKER) (test 1 % qxlq=908) NEUTROPHILS ABSOLUTE COUNT (BEAKER) (test 5.50 K/ L 1.80-8.00 afnh=424) LYMPHOCYTES ABSOLUTE COUNT (BEAKER) (test 1.30 K/ L 1.48-4.50 qgvv=263) MONOCYTES ABSOLUTE COUNT (BEAKER) (test 0.80 K/ L 0.00-1.30 ftdv=359) EOSINOPHILS ABSOLUTE COUNT (BEAKER) (test 0.20 K/ L 0.00-0.50 zxjw=082) BASOPHILS ABSOLUTE COUNT (BEAKER) (test 0.10 K/ L 0.00-0.20 exuh=901) HEMOGLOBIN AND [id number] 23:14:00 Test Item Value Reference Range Comments HEMOGLOBIN (BEAKER) (test qjzv=768) 14.7 GM/DL 13.0-16.8 HEMATOCRIT (BEAKER) (test qjvd=624) 44.1 % 40.0-50.0 [id number] 04:49:00 Test Item Value Reference Range Comments PROCALCITONIN (BEAKER) (test wljs=7567) 0.16 ng/mL <0.05 SEPSIS RISK (ng/mL)Low: 0.05-0.50Intermediate: 0.51-2.00High: & gt;=[id number] 04:27:00 Test Item Value Reference Range Comments MAGNESIUM (BEAKER) (test bnrd=522) 1.9 mg/dL 1.5-3.0 COMPREHENSIVE METABOLIC [id number] 04:27:00 Test Item Value Reference Range Comments TOTAL PROTEIN (BEAKER) 6.5 gm/dL 6.0-8.5 (test xvgp=755) ALBUMIN (BEAKER) (test 3.7 g/dL 3.5-5.0 tccb=7261) ALKALINE PHOSPHATASE 56 U/L 30-115 (BEAKER) (test gdvh=090) BILIRUBIN TOTAL (BEAKER) 1.2 mg/dL 0.1-1.3 (test obpe=963) SODIUM (BEAKER) (test 136 meq/L 135-148 iubz=070) POTASSIUM (BEAKER) (test 3.9 meq/L 3.5-5.5 zyoj=572) CHLORIDE (BEAKER) (test 100 meq/L 98-106 pzrf=361) CO2 (BEAKER) (test 27 meq/L 20-31 ssix=165) BLOOD UREA NITROGEN 8 mg/dL 10-26 (BEAKER) (test wgoh=177) CREATININE (BEAKER) (test 0.79 mg/dL 0.50-1.20 deit=303) GLUCOSE RANDOM (BEAKER) 134 mg/dL 70-110 (test lufh=447) CALCIUM (BEAKER) (test 8.4 mg/dL 8.5-10.5 qxan=635) AST (SGOT) (BEAKER) (test 57 U/L 5-40 pwhg=699) ALT (SGPT) (BEAKER) (test 66 U/L 6-50 hmbn=315) EGFR (BEAKER) (test 107 mL/min/1.73 sq ESTIMATED GFR IS NOT sdby=5912) m ACCURATE CREATININE CLEARANCE IN PREDICTING GLOMERULAR FILTRATION RATE. ESTIMATED GFR IS NOT APPLICABLE FOR DIALYSIS PATIENTS. PROTHROMBIN [id number] 04:26:00 Test Item Value Reference Range Comments PROTIME (BEAKER) (test copj=253) 16.7 seconds 11.8-14.4 INR (BEAKER) (test lzdp=146) 1.4 1.2-1.5 RECOMMENDED COUMADIN/WARFARIN INR THERAPY RANGESSTANDARD DOSE: 2.0 - 3.0 Includes: PROPHYLAXIS forvenous thrombosis, systemic embolization; TREATMENT for venous thrombosis and/or pulmonary embolus.HIGH RISK: Target INR is 2.5-3.5 for patients with mechanical heart valves.CBC W/PLT COUNT & AUTO [id number] 04:05:00 Test Item Value Reference Range Comments WHITE BLOOD CELL COUNT (BEAKER) (test kics=056) 10.1 K/ L 4.0-10.0 RED BLOOD CELL COUNT (BEAKER) (test tftn=886) 4.66 M/ L 4.20-5.80 HEMOGLOBIN (BEAKER) (test ebfx=560) 14.5 GM/DL 13.0-16.8 HEMATOCRIT (BEAKER) (test gsrv=086) 44.2 % 40.0-50.0 MEAN CORPUSCULAR VOLUME (BEAKER) (test avuh=588) 94.9 fL 82.0-98.0 MEAN CORPUSCULAR HEMOGLOBIN (BEAKER) (test 31.2 pg 27.0-33.0 jqlx=929) MEAN CORPUSCULAR HEMOGLOBIN CONC (BEAKER) (test 32.9 GM/DL 32.0-36.0 kwhs=919) RED CELL DISTRIBUTION WIDTH (BEAKER) (test 13.0 % 12.0-15.0 zkey=590) PLATELET COUNT (BEAKER) (test oprz=980) 152 K/CU MM 150-430 MEAN PLATELET VOLUME (BEAKER) (test oypw=832) 9.4 fL 6.5-10.5 NUCLEATED RED BLOOD CELLS (BEAKER) (test 0 /100 WBC 0-0 anih=091) NEUTROPHILS RELATIVE PERCENT (BEAKER) (test 77 % oany=693) LYMPHOCYTES RELATIVE PERCENT (BEAKER) (test 10 % dpig=211) MONOCYTES RELATIVE PERCENT (BEAKER) (test 11 % buet=489) EOSINOPHILS RELATIVE PERCENT (BEAKER) (test 1 % znht=697) BASOPHILS RELATIVE PERCENT (BEAKER) (test 2 % vagq=158) NEUTROPHILS ABSOLUTE COUNT (BEAKER) (test 7.80 K/ L 1.80-8.00 ykpy=679) LYMPHOCYTES ABSOLUTE COUNT (BEAKER) (test 1.00 K/ L 1.48-4.50 cudh=685) MONOCYTES ABSOLUTE COUNT (BEAKER) (test 1.10 K/ L 0.00-1.30 eznl=277) EOSINOPHILS ABSOLUTE COUNT (BEAKER) (test 0.10 K/ L 0.00-0.50 ribn=660) BASOPHILS ABSOLUTE COUNT (BEAKER) (test 0.20 K/ L 0.00-0.20 hswt=461) CREATINE KINASE (CK), TOTAL AND [id number] 19:09:00 Test Item Value Reference Range Comments CREATINE KINASE TOTAL (BEAKER) (test sgyn=241) 526 U/L 30-300 CREATINE KINASE-MB (BEAKER) (test bxbo=864) 3.0 ng/mL 0.0-4.9 CREATINE KINASE-MB INDEX (BEAKER) (test czye=039) 0.6 % CK-MB Reference Range:<5 Normal5-10 Borderline>10 AbnormalTROPONIN [id number] 19:07:00 Test Item Value Reference Range Comments TROPONIN I (BEAKER) (test kpru=344) < ng/mL 0.00-0.15 Troponin I (TnI) levels must be interpreted in the context of the presenting symptoms and the clinical findings. Elevated TnI levels indicate myocardial damage, but are not specific for ischemic heart disease. Elevated TnI levels are seen in patients with other cardiac conditions (including myocarditis and congestive heart failure), and slight TnI elevations occur in patients with other conditions, including sepsis, renal failure, acidosis, acute neurological disease, and persistent tachyarrhythmia.RAPID DRUG SCREEN, [id number] 18:34 :00 Test Item Value Reference Range Comments BARBITURATE URINE (BEAKER) (test ighd=196) Negative Negative BENZODIAZEPINE SCREEN URINE (BEAKER) (test Negative Negative ivvz=096) COCAINE (METAB.) SCREEN (BEAKER) (test nqsy=1883) Negative Negative METHADONE SCREEN (BEAKER) (test dfet=2398) Negative Negative OPIATE SCREEN URINE (BEAKER) (test skxz=478) Negative Negative CANNABINOID SCREEN URINE (BEAKER) (test xqjt=093) Negative Negative AMPH/METHAMPH SCREEN (BEAKER) (test qsqk=1305) Negative Negative PHENCYCLIDINE SCREEN URINE (BEAKER) (test crjz=471) Negative Negative DRUG CUTOFF CONC.Cocaine 300 ng/mL Cannabinoid 50 ng/mLBenzodiazepine 200 ng/mLBarbiturate 200 ng/ mLPhencyclidine 25 ng/mLOpiate 300 ng/mLMethadone 300 ng/mLAmphetamine/ 1000 ng/mL [id number] 18:34 :00 Test Item Value Reference Range Comments ETHANOL (BEAKER) (test fsrl=119) < mg/dL <=10 CBC W/PLT COUNT & AUTO [id number] 18:19:00 Test Item Value Reference Range Comments WHITE BLOOD CELL COUNT (BEAKER) (test tktj=084) 9.3 K/ L 4.0-10.0 RED BLOOD CELL COUNT (BEAKER) (test lyad=070) 5.03 M/ L 4.20-5.80 HEMOGLOBIN (BEAKER) (test leso=696) 15.8 GM/DL 13.0-16.8 HEMATOCRIT (BEAKER) (test oyxc=696) 47.5 % 40.0-50.0 MEAN CORPUSCULAR VOLUME (BEAKER) (test vlmz=144) 94.6 fL 82.0-98.0 MEAN CORPUSCULAR HEMOGLOBIN (BEAKER) (test 31.4 pg 27.0-33.0 gszn=003) MEAN CORPUSCULAR HEMOGLOBIN CONC (BEAKER) (test 33.2 GM/DL 32.0-36.0 nnvz=276) RED CELL DISTRIBUTION WIDTH (BEAKER) (test 13.3 % 12.0-15.0 wnhr=289) PLATELET COUNT (BEAKER) (test vhhd=883) 153 K/CU MM 150-430 MEAN PLATELET VOLUME (BEAKER) (test tccd=459) 9.1 fL 6.5-10.5 NUCLEATED RED BLOOD CELLS (BEAKER) (test 0 /100 WBC 0-0 lpgt=917) NEUTROPHILS RELATIVE PERCENT (BEAKER) (test 81 % mzdl=650) LYMPHOCYTES RELATIVE PERCENT (BEAKER) (test 9 % ffpn=474) MONOCYTES RELATIVE PERCENT (BEAKER) (test 10 % ktnf=700) EOSINOPHILS RELATIVE PERCENT (BEAKER) (test 0 % jdrg=952) BASOPHILS RELATIVE PERCENT (BEAKER) (test 0 % wcok=554) NEUTROPHILS ABSOLUTE COUNT (BEAKER) (test 7.50 K/ L 1.80-8.00 ckjy=167) LYMPHOCYTES ABSOLUTE COUNT (BEAKER) (test 0.80 K/ L 1.48-4.50 mhhl=309) MONOCYTES ABSOLUTE COUNT (BEAKER) (test 0.90 K/ L 0.00-1.30 ugzy=148) EOSINOPHILS ABSOLUTE COUNT (BEAKER) (test 0.00 K/ L 0.00-0.50 vzvd=416) BASOPHILS ABSOLUTE COUNT (BEAKER) (test 0.00 K/ L 0.00-0.20 sgia=026) HEMOGLOBIN AND [id number] 18:14:00 Test Item Value Reference Range Comments HEMOGLOBIN (BEAKER) (test ddrt=702) 15.8 GM/DL 13.0-16.8 HEMATOCRIT (BEAKER) (test rmfo=643) 47.5 % 40.0-50.0 OCCULT BLOOD, [id number] 13:26:00 Test Item Value Reference Range Comments FECAL OCCULT BLOOD (BEAKER) (test ifzp=752) Negative Negative CREATINE KINASE (CK), TOTAL AND [id number] 12:33:00 Test Item Value Reference Range Comments CREATINE KINASE TOTAL (BEAKER) (test bbah=194) 809 U/L 30-300 CREATINE KINASE-MB (BEAKER) (test yxmd=137) 5.0 ng/mL 0.0-4.9 CREATINE KINASE-MB INDEX (BEAKER) (test cxja=359) 0.6 % CK-MB Reference Range:<5 Normal5-10 Borderline>10 AbnormalTROPONIN [id number] 12:31:00 Test Item Value Reference Range Comments TROPONIN I (BEAKER) (test pbfd=070) < ng/mL 0.00-0.15 Troponin I (TnI) levels must be interpreted in the context of the presenting symptoms and the clinical findings. Elevated TnI levels indicate myocardial damage, but are not specific for ischemic heart disease. Elevated TnI levels are seen in patients with other cardiac conditions (including myocarditis and congestive heart failure), and slight TnI elevations occur in patients with other conditions, including sepsis, renal failure, acidosis, acute neurological disease, and persistent tachyarrhythmia.COMPREHENSIVE METABOLIC [id number] 12:24:00 Test Item Value Reference Range Comments TOTAL PROTEIN (BEAKER) 7.9 gm/dL 6.0-8.5 (test hjgq=701) ALBUMIN (BEAKER) (test 4.5 g/dL 3.5-5.0 rqbo=6506) ALKALINE PHOSPHATASE 84 U/L 30-115 (BEAKER) (test bupu=077) BILIRUBIN TOTAL (BEAKER) 0.7 mg/dL 0.1-1.3 (test zhtz=778) SODIUM (BEAKER) (test 137 meq/L 135-148 hfte=885) POTASSIUM (BEAKER) (test 3.8 meq/L 3.5-5.5 eguc=450) CHLORIDE (BEAKER) (test 102 meq/L 98-106 sery=229) CO2 (BEAKER) (test 23 meq/L 20-31 kxgb=261) BLOOD UREA NITROGEN 5 mg/dL 10-26 (BEAKER) (test dsiu=025) CREATININE (BEAKER) (test 0.80 mg/dL 0.50-1.20 zbvb=775) GLUCOSE RANDOM (BEAKER) 113 mg/dL 70-110 (test jfgl=076) CALCIUM (BEAKER) (test 8.9 mg/dL 8.5-10.5 ieab=121) AST (SGOT) (BEAKER) (test 111 U/L 5-40 ljdu=727) ALT (SGPT) (BEAKER) (test 102 U/L 6-50 jpow=419) EGFR (BEAKER) (test mL/min/1.73 sq m INSUFFICIENT CLINICAL DATA stmy=5811) TO CALCULATE ESTIMATED GFR. [id number] 12:12:00 Test Item Value Reference Range Comments PROTIME (BEAKER) (test pgwf=843) 12.3 seconds 11.8-14.4 INR (BEAKER) (test tdni=591) 0.9 1.2-1.5 PARTIAL THROMBOPLASTIN TIME (BEAKER) (test 28.9 seconds 23.2-36.1 zrcc=863) RECOMMENDED COUMADIN/WARFARIN INR THERAPY RANGESSTANDARD DOSE: 2.0 - 3.0 Includes: PROPHYLAXIS forvenous thrombosis, systemic embolization; TREATMENT for venous thrombosis and/or pulmonary embolus.HIGH RISK: Target INR is 2.5-3.5 for patients with mechanical heart valves.CBC W/PLT COUNT & AUTO [id number] 11:59:00 Test Item Value Reference Range Comments WHITE BLOOD CELL COUNT (BEAKER) (test aznp=437) 8.1 K/ L 4.0-10.0 RED BLOOD CELL COUNT (BEAKER) (test ahxh=748) 5.06 M/ L 4.20-5.80 HEMOGLOBIN (BEAKER) (test tsga=892) 16.1 GM/DL 13.0-16.8 HEMATOCRIT (BEAKER) (test aujx=313) 48.0 % 40.0-50.0 MEAN CORPUSCULAR VOLUME (BEAKER) (test vfdk=900) 94.8 fL 82.0-98.0 MEAN CORPUSCULAR HEMOGLOBIN (BEAKER) (test 31.8 pg 27.0-33.0 sgcm=843) MEAN CORPUSCULAR HEMOGLOBIN CONC (BEAKER) (test 33.5 GM/DL 32.0-36.0 qxix=174) RED CELL DISTRIBUTION WIDTH (BEAKER) (test 13.3 % 12.0-15.0 axoa=479) PLATELET COUNT (BEAKER) (test blbn=297) 150 K/CU MM 150-430 MEAN PLATELET VOLUME (BEAKER) (test brro=872) 9.1 fL 6.5-10.5 NUCLEATED RED BLOOD CELLS (BEAKER) (test 0 /100 WBC 0-0 hyup=462) NEUTROPHILS RELATIVE PERCENT (BEAKER) (test 66 % mquq=902) LYMPHOCYTES RELATIVE PERCENT (BEAKER) (test 19 % obra=076) MONOCYTES RELATIVE PERCENT (BEAKER) (test 13 % uxvd=574) EOSINOPHILS RELATIVE PERCENT (BEAKER) (test 2 % reib=037) BASOPHILS RELATIVE PERCENT (BEAKER) (test 0 % wvvp=237) NEUTROPHILS ABSOLUTE COUNT (BEAKER) (test 5.30 K/ L 1.80-8.00 havi=646) LYMPHOCYTES ABSOLUTE COUNT (BEAKER) (test 1.60 K/ L 1.48-4.50 vrvn=243) MONOCYTES ABSOLUTE COUNT (BEAKER) (test 1.10 K/ L 0.00-1.30 polm=381) EOSINOPHILS ABSOLUTE COUNT (BEAKER) (test 0.10 K/ L 0.00-0.50 xgqj=001) BASOPHILS ABSOLUTE COUNT (BEAKER) (test 0.00 K/ L 0.00-0.20 zmed=215)
[2018-04-10] MEDS ORDERED: LIDOCAINE 1% 20 ML MDV ONE (17:05)
--- NOTE | 2018-04-10 17:39 | ER ---
Nurse's Notes [facility] Name: Virgil Ryan Age: 42 yrs Sex: Male : 1975 Arrival Date: 04/10/2018 Time: 16:18 Bed 18 Private MD: None, None Diagnosis: Laceration without foreign body of oral cavity Presentation: 04/10 16:42 Presenting complaint: Patient states: "I was eating and I think I bit myself. I just lk1 can't believe there is this much blood.". Transition of care: patient was not received from another setting of care. Onset of symptoms was April 10, 2018 at 14:30. Risk Assessment: Do you want to hurt yourself or someone else? Patient reports no desire to harm self or others. Initial Sepsis Screen: Does the patient meet any 2 criteria? No. Patient's initial sepsis screen is negative. Does the patient have a suspected source of infection? No. Patient's initial sepsis screen is negative. Care prior to arrival: None. 16:42 Method Of Arrival: Ambulatory lk1 16:42 Acuity: LACY 3 lk1 Historical: - Allergies: 16:43 No Known Allergies; lk1 - PMHx: 16:43 None; lk1 - PSHx: 16:43 None; lk1 - Immunization history:: Adult Immunizations up to date. - Social history:: Smoking status: Patient uses tobacco products, smokes one-half pack cigarettes per day. Assessment: 17:00 General: Appears in no apparent distress. comfortable, uncomfortable, Behavior is calm, em cooperative, Smells of alcohol, Reports biting left side of cheek about 3 hours ago, been spitting blood. Pain: Denies pain. Neuro: Level of Consciousness is awake, alert, obeys commands, Oriented to person, place, time, situation. Cardiovascular: Capillary refill < 3 seconds Patient's skin is warm and dry. Respiratory: Airway is patent Respiratory effort is even, unlabored, Respiratory pattern is regular, symmetrical. GI:. GI: Patient currently denies nausea, vomiting. : No signs and/or symptoms were reported regarding the genitourinary system. EENT: blood noted in mouth . Derm: Skin is intact, Skin is pink, warm \\T\\ dry. Musculoskeletal: Range of motion: intact in all extremities. 17:35 Reassessment: pt states he was leaving since the bleeding has stopped, SASHA Burk em notified. Vital Signs: 16:43 BP 139 / 90; Pulse 105; Resp 16; Temp 98.5(TE); Pulse Ox 96% on R/A; Weight 86.18 kg lk1 (R); Height 5 ft. 9 in. (175.26 cm) (R); Pain 0/10; 16:43 Body Mass Index 28.06 (86.18 kg, 175.26 cm) lk1 ED Course: 16:18 Patient arrived in ED. mr 16:19 None, None is Private Physician. mr 16:43 Triage completed. lk1 16:46 Arm band placed on right wrist. lk1 16:51 Wm Mejia NP is PHCP. pm1 16:51 Matty Levi MD is Attending Physician. pm1 17:14 Aleksey Garcia LVN is Primary Nurse. em Administered Medications: 17:47 Not Given (Patient Eloped): Lidocaine (1 %) 5 ml 5 ml Infiltration once; to bedside em Outcome: 18:00 Patient left the ED. iw Signatures: Gwen Frye GarciaAleksey, YOLANDE DRY CAN TENDER em Natalee Bustos RN RN Zoe Myers RN RN lk Wm Mejia NP SENIOR RELATIONSHIP MANAGER pm1 Corrections: (The following items were deleted from the chart) 17:53 17:00 General: Appears in no apparent distress. comfortable, uncomfortable, Behavior is em calm, cooperative, Reports biting left side of cheek, being spitting blood em
--- NOTE | 2018-04-10 17:39 | EDPHYS ---
Physician Documentation [facility] Name: Virgil Ryan Age: 42 yrs Sex: Male : 1975 Arrival Date: 04/10/2018 Time: 16:18 Bed 18 Private MD: None, None ED Physician Matty Levi HPI: 04/10 17:00 This 42 yrs old Male presents to ER via Ambulatory with complaints of Mouth pm1 Injury. 17:00 Onset: The symptoms/episode began/occurred 2 hour(s) ago. Duration: The symptoms are pm1 continuous, and are unchanged since they started. Modifying factors: The symptoms are alleviated by nothing, the symptoms are aggravated by nothing. Associated signs and symptoms: Pertinent negatives: pain, vomiting. Severity of symptoms: in the emergency department the symptoms are unchanged. The patient has not experienced similar symptoms in the past. Patient was eating and bit the inside of his left cheek. Occurred tow hours ago and the bleeding has not stopped. Historical: - Allergies: 16:43 No Known Allergies; lk1 - PMHx: 16:43 None; lk1 - PSHx: 16:43 None; lk1 - Immunization history:: Adult Immunizations up to date. - Social history:: Smoking status: Patient uses tobacco products, smokes one-half pack cigarettes per day. ROS: 17:00 Constitutional: Negative for fever, chills, and weight loss, Eyes: Negative for injury, pm1 pain, redness, and discharge. 17:00 Neck: Negative for injury, pain, and swelling, Cardiovascular: Negative for chest pain, palpitations, and edema, Respiratory: Negative for shortness of breath, cough, wheezing, and pleuritic chest pain, Abdomen/GI: Negative for abdominal pain, nausea, vomiting, diarrhea, and constipation, Back: Negative for injury and pain, MS/Extremity: Negative for injury and deformity, Skin: Negative for injury, rash, and discoloration, Neuro: Negative for headache, weakness, numbness, tingling, and seizure. 17:00 ENT: Positive for bleeding from laceration inside mouth. Exam: 17:00 Constitutional: This is a well developed, well nourished patient who is awake, alert, pm1 and in no acute distress. Head/Face: Normocephalic, atraumatic. Eyes: Pupils equal round and reactive to light, extra-ocular motions intact. Lids and lashes normal. Conjunctiva and sclera are non-icteric and not injected. Cornea within normal limits. Periorbital areas with no swelling, redness, or edema. 17:00 Skin: Warm, dry with normal turgor. Normal color with no rashes, no lesions, and no evidence of cellulitis. MS/ Extremity: Pulses equal, no cyanosis. Neurovascular intact. Full, normal range of motion. 17:00 ENT: Mouth: Lips: normal, Gums: normal with healthy appearance, V shaped 2 cm laceration to left inner cheek next to 3rd molars. 17:00 Neuro: Orientation: is normal, Mentation: is normal, Motor: moves all fours, Gait: is steady, at a normal pace, without difficulty. Vital Signs: 16:43 BP 139 / 90; Pulse 105; Resp 16; Temp 98.5(TE); Pulse Ox 96% on R/A; Weight 86.18 kg lk1 (R); Height 5 ft. 9 in. (175.26 cm) (R); Pain 0/10; 16:43 Body Mass Index 28.06 (86.18 kg, 175.26 cm) lk1 MDM: 16:51 Patient medically screened. pm1 17:00 Data reviewed: vital signs. Data interpreted: Pulse oximetry: on room air is 96 %. pm1 Interpretation: normal. 17:39 ED course: Informed by nurse that the patient decided to leave because the bleeding pm1 from his mouth stopped. Administered Medications: 17:47 Not Given (Patient Eloped): Lidocaine (1 %) 5 ml 5 ml Infiltration once; to bedside em Disposition: 18:38 Co-signature as Attending Physician, Matty Levi MD. rn Disposition: 04/10/18 17:39 Patient left the facility after being seen by provider. Preliminary diagnosis is Laceration without foreign body of oral cavity. - Patient left due to (see nurse's notes). - Condition is Undetermined. - Problem is new. - Symptoms have improved. Signatures: Natalee Bustos RN GHAZAL Matty Levi MD MD rn Kluge, Leah, RN RN lk1 Wm Mejia, CATERING COORDINATOR CATERING COORDINATOR pm1 Aleksey Garcia WALNUT DEHYDRATOR OPERATOR em Corrections: (The following items were deleted from the chart) 17:46 16:56 Setup Suture Tray ordered. pm1 em 17:47 16:56 Sutures, Vicryl ordered. pm1 em 17:47 16:56 Dressing - Wound ordered. 1 em 17:47 16:56 Sterile Gloves ordered. 1 em 18:00 17:39 04/10/2018 17:39 Patient left the facility after being seen by provider. iw Preliminary diagnosis is Laceration without foreign body of oral cavity. Reason stated they are leaving due to (see nurse's notes). Condition is Undetermined. Problem is new. Symptoms have improved. pm1
== END 2018-04-10 18:00 | disposition left against medical advice (07) ==
LOC: ER 16:14
DX: S01.512A Laceration without foreign body of oral cavity, initial encounter (principal); F17.210 Nicotine dependence, cigarettes, uncomplicated
CPT/HCPCS: 99281

== ENCOUNTER 2022-10-08 13:21 | Emergency (ER) | payer SELFPAY ==
--- OUTSIDE RECORDS SUMMARY | 2022-10-08 13:27 | XMS REPORT | Continuity of Care Document ---
:1975 [facility] t Address [address] [place] [address] Care Team Providers Name Role Phone SHARPLESS Primary Care Physician Unavailable Yajaira RosasDaja [facility] Attending Clinician Unavailable Davi Oleary R1 Attending Clinician Unavailable James Burk Attending Clinician Unavailable Emil Pritchett Attending Clinician Unavailable CHANTAL MACIAS Attending Clinician Unavailable Physician, No Primary or Family Admitting Clinician UnavailDAVID Forbes Admitting Clinician Unavailable Claudia Cooper Unavailable Ivanna Domínguez MD Unavailable Blaire Easley MA Unavailable Unavailable Davi Oleary DO Unavailable Laly Snyder MA Unavailable Unavailable Payers Payer Name Policy Type Policy Number Effective Date Expiration Date S [facility] [id number] 2021 2021 Health 00:00:00 00:00:00 Problems Condition Condition Condition Status Onset Resolution Last Treating Co mments Source Name Details Category Date Date Treatment Clinician Date Pneumonia, Pneumonia, Disease Active C [facility] unspecifie unspecifie 5-19 Mandi kes d organism d organism 00:00: Me dical 00 Center Varicose Varicose 17703-2 Active 2021-08-03 Henriquez, veins of veins of 10:27:14 Branch legs legs (I83.93) (454.9)Virgilio lis, PEDIATRIC OCCUPATIONAL THERAPIST Branch Hymenopter Hymenopter 05466-6 Active 2021-08-06 Henriquez, 2.16.84 a allergy a allergy 16:27:32 Branch 0. 1.113 (Z91.038) 883.4.2 (V15.06)Wi llis, PEDIATRIC OCCUPATIONAL THERAPIST Branch Abdominal Abdominal 30903-8 Active 2021-08-06 Henriquez, 2.16.84 swelling, swelling, 16:27:28 Branch 0. 1.113 generalize generalize 88 3.4.2 d d (R19.07) (789.37)Pr ognosis: Abdominal swelling possibly consistent with liver cirrhosis. Patient would like to pursue extensive workup to evaluate status of liver function. Will order lab work and ultrasound imaging to assess health status and consider GI referral for further evaluation of liver disease. as of 1Martinez, PEDIATRIC OCCUPATIONAL THERAPIST Branch Alcohol Alcohol 99221-9 Active 2022-09-17 Daniel 2.16.84 abuse abuse 10:10:24 rIvanna 0.1.1 13 (F10.10) 883.4.2 (305.00)Pr ognosis: Patient and state that patient is entering alcohol rehab facility next week, and he'll stay there for 30-45 days. Discussed risks and complicati ons of alcohol intake and encouraged patient on his decision to enter rehab. as of MD Ivanna Pedersen Bilateral Bilateral 54374-7 Active 2022-09-17 Daniel 2.16.84 lower lower 09:41:01 rIvanna 0.1.1 13 extremity extremity 883. 4.2 edema edema (R60.0) (782.3)MD Marcus Ruiz ents: chronic BMI BMI 56987-1 Active 2022-09-16 Easley, 2.16 .84 29.0-29.9, 29.0-29.9, 16:17:45 Blaire 0.1.113 adult adult 883.4.2 (Renamed (Renamed from Body from Body mass index mass index (BMI) of (BMI) of 29.0 to 29.0 to 29.9 in 29.9 in adult) adult) (Z68.29) (V85.25)Os dannimianRHIANNA Blaire Encounter Encounter 67302-1 Active 2022-09-17 Will-Pamela 2.16.84 to to 09:41:46 rIvanna 0.1.1 13 establish establish 883. 4.2 care with care with new doctor new doctor (Z76.89) (V65.8)MD Ivanna Ruiz Elevated Elevated 15281-4 Active 2022-09-17 Will-Pamela 2.16.84 AST (SGOT) AST (SGOT) 09:33:29 rIvanna 0.1.113 (R74.01) 883.4.2 (790.4)MD Ivanna Ruiz Elevated Elevated 36226-0 Active 2022-09-17 Al-Khudhai 2.16.84 blood blood 09:33:25 rIvanna 0.1.1 13 pressure pressure 883.4. 2 reading reading (R03.0) (796.2)Pro gnosis: 2 elevated blood pressure readings recorded in this clinic. Patient declines taking any blood pressure medication s. Patient will keep a log 3 times weekly of blood pressures at home and bring to next appointmen t. Will discuss treatment options at that time. as of MD Ivanna Pedersen Essential Essential 99726-7 Active 2022-09-17 Al-Sonyudhai 2.16.84 hypertensi hypertensi 10:16:45 Ivanna miranda 0.1.113 on on (I10) 883.4.2 (401.9)Pro gnosis: Discussed normal BP range and the goal of HTN treatment. Will restart low-dose Lisinopril and advised patient to check him BP daily at home and call us back with results next week or sooner if any abnormal (low or high) findings.Rony cecy states that he was on Lisinopril before and tolerated it well.Order ed new metabolic panel to be done next week after he restart Lisinopril . Patient understood and agreed. as of AyalaMaryanne russo MD [facility] Hepatic Hepatic 42580-2 Active 2022-09-17 [facility] 01.06.84 steatosis steatosis 10:12:48 rIvanna 0.1.113 (K76.0) 883.4.2 (571.8)Pro gnosis: Patient is new to me. We spent time discussing his past medical history, past tests and work-up, and clinical progress since last time he was in clinic 13 months ago with him and his in the room. They did not bring any of [facility] discharge papers or summary to review, and patient doesn't know what tests they did and what exactly was their diagnoses beside "Alcohol abuse and stomach problem". Patient signed release of records request and said she will try yo bring these papers they have at home to our office. We reviewed patient's last Abdomen Ultrasound at [facility] 06/09/22 and discussed findings with patient and . they understood and agreed on repeating US now to assess progress and wether patient has progressed to Cirrhosis. Advised them to call us the day they do the US in order to look for the results.Rajendra nuñez counseled at length regarding alcohol harmful effect on the liver especially with his existing liver disease and patient confirmed that he is entering alcohol rehab facility next week as detailed below. Offered to have lab tests ordered today but they deferred because he just had labs at [facility]. Will follow up on these results when we receive it. as of Sandee russo MD [facility] 81055-3 Active 2022-09-16 [place] . discharge discharge 16:05:32 Blaire 0. 1.113 follow-up follow-up 883. 4.2 (Z09) (V67.59)RHIANNA Dove Never Never 10912-1 Active 2022-09-16 Easley, 2.16 .84 smoked smoked 16:17:35 Blaire 0.1.113 cigarettes cigarettes 88 3.4.2 (Z78.9) (V49.89)Os RHIANNA benjamin Varicose Varicose 37161-0 Active 2022-09-17 Al-Sony[facility] 2.16.84 veins of veins of 09:34:43 r, Marwan 0 .1.113 lower lower 883.4.2 extremitie extremitie s with s with complicati complicati ons, ons, bilateral bilateral (I83.893) (454.8)MD Ivanna Ruiz Hymenopter Hymenopter 44395-2 Active 2022-09-17 Fadumohai 2.16.84 a allergy a allergy 10:17:47 r, Marwan 0.1.113 (Z91.038) 883.4.2 (V15.06)MD Fred BrewernComm ents: Epi Pen Umbilical Umbilical 21452-8 Active 2022-09-17 Al-Khudhai 2.16.84 hernia hernia 09:33:40 r, Marwan 0.1.1 13 without without 883.4.2 obstructio obstructio n or n or gangrene gangrene (K42.9) (553.1)Pro gnosis: Umbilical mass, low suspicion of incarcerat ion or strangulat ion. Associated pain most likely due to abdominal wall musculatur e strain. Advised to try Tylenol for pain and rest as much as possible. Patient likely does not need surgical evaluation at this time. as of MD Ivanna Pedersen Varicose Varicose 27631-8 Active 2022-09-17 Al-Khudhai 2.16.84 veins of veins of 09:33:40 r, Marwan 0 .1.113 right right 883.4.2 lower lower extremity extremity with ulcer with ulcer of calf, of calf, unspecifie unspecifie d ulcer d ulcer stage stage (I83.012) (454.0)Pro gnosis: Most likely secondary to alcohol abuse. No coagulopat hy noted on coag studies. Patient reports that varicose veins on lower extremitie s have not been bleeding. Recurrent varicose veins with swelling. Advised patient to wear compressio n stockings daily. Consider referral to vascular surgeon for evaluation for worsening symptoms. as of MD Ivanna Pedersen Abdominal Abdominal 89477-6 Active 2021-05-29 [facility], swelling, swelling, 14:40:02 Davi chen generalize d d (R19.07) (789.37)Pr ognosis: Abdominal swelling possibly consistent with liver cirrhosis. Patient would like to pursue extensive workup to evaluate status of liver function. Will order lab work and ultrasound imaging to assess health status and consider GI referral for further evaluation of liver disease. as of 29-May-2021 DO Davi Oleary Alcohol Alcohol 73757-5 Active 2021-05-29 [facility], abuse abuse 14:39:02 Davi (F10.10) (305.00)Pr ognosis: Reports 40 beers per day with possible liver disease. Patient states that he wishes to cut down on drinking and states that he drinks in the morning and feels guilty about the amount he drinks. Discussed risks of continuing this level of drinking in detail with patient, advised him to pursue a plan to wean off alcohol or cut back on the amount of alcohol per day. as of 29-May-2021 DO Davi Oleary BMI BMI 86663-8 Active 2021-05-29 Snyder, 2.. 84 30.0-30.9, 30.0-30.9, 13:22:57 Laly 0.1.113 adult adult 883.4.2 (Renamed (Renamed from Body from Body mass index mass index (BMI) of (BMI) of 30.0 to 30.0 to 30.9 in 30.9 in adult) adult) (Z68.30) (V85.30)RHIANNA Davidsonsy Never Never 02912-7 Active 2021-05-29 Snyder, 2.16. 84 smoked smoked 13:22:47 Laly 0.1.113 cigarettes cigarettes 88 3.4.2 (Z78.9) (V49.89)Charley simental MA Laly Varicose Varicose 12671-6 Active 2021-05-29 Mamta, veins of veins of 14:40:34 Davi right right lower lower extremity extremity with ulcer with ulcer of calf, of calf, unspecifie unspecifie d ulcer d ulcer stage stage (I83.012) (454.0)Pro gnosis: Patient went to ER for repair of varicose vein on R leg, patient was not aware he needed to have suture removed. Still in place and painful. 5 total lesions on R lateral leg.Multip le varices on leg likely secondary to chronic, undiagnose d liver disease caused by alcohol abuse. as of 29-May-2021 DO Davi Oleary Abdominal Abdominal 85804-5 Active 2021-07-03 Mamta, swelling, swelling, 13:57:49 Davi generalize generalize d d (R19.07) (789.37)Pr ognosis: Abdominal swelling possibly consistent with liver cirrhosis. Patient would like to pursue extensive workup to evaluate status of liver function. Will order lab work and ultrasound imaging to assess health status and consider GI referral for further evaluation of liver disease. as of DO Davi Smith Alcohol Alcohol 08044-1 Active 2021-07-03 Mamta, abuse abuse 14:20:12 Davi (F10.10) (305.00)Pr ognosis: MELD-Na score of 15, indicating <2% risk of 90 day mortality. Reassuring lab results. Patient down to 30 beers per day from 40 beers one month ago. Advised to join 12-step group program for assistance in cutting back on alcohol, and continue to reduce daily alcohol intake. Counseled patients that generalize d abdominal swelling and leg varicositi es likely due to alcohol abuse and liver injury. as of DO Davi Smith Elevated Elevated 98568-2 Active 2021-07-03 Mamta blood blood 14:25:43 Davi pressure pressure reading reading (R03.0) (796.2)Pro gnosis: 2 elevated blood pressure readings recorded in this clinic. Patient declines taking any blood pressure medication s. Patient will keep a log 3 times weekly of blood pressures at home and bring to next appointmen t. Will discuss treatment options at that time. as of DO Davi Smith Umbilical Umbilical 35135-6 Active 2021-07-03 Mamta, 2.16.84 hernia hernia 13:59:49 Davi Parker 0.1.11 3 without without 883.4.2 obstructio obstructio n or n or gangrene gangrene (K42.9) (553.1)Pro gnosis: Umbilical mass, low suspicion of incarcerat ion or strangulat ion. Associated pain most likely due to abdominal wall musculatur e strain. Advised to try Tylenol for pain and rest as much as possible. Patient likely does not need surgical evaluation at this time. as of 1DkieshaDO Davi Varicose Varicose 54313-1 Active 2021-07-03 Mamta, 2. veins of veins of 14:19:57 Davi Parker 0. 1.113 right right 883.4.2 lower lower extremity extremity with ulcer with ulcer of calf, of calf, unspecifie unspecifie d ulcer d ulcer stage stage (I83.012) (454.0)Pro gnosis: Most likely secondary to alcohol abuse. No coagulopat hy noted on coag studies. Patient reports that varicose veins on lower extremitie s have not been bleeding. Recurrent varicose veins with swelling. Advised patient to wear compressio n stockings daily. Consider referral to vascular surgeon for evaluation for worsening symptoms. as of 1DkieshaDO Davi Alcohol Alcohol 23488-1 Active 2021-08-06 Martinez, abuse abuse 16:27:25 Branch (F10.10) (305.00)Wi llis, PEDIATRIC OCCUPATIONAL THERAPIST Branch Elevated Elevated 24481-4 Active 2021-08-03 Martinez, AST (SGOT) AST (SGOT) 10:28:17 Branch (R74.01) (790.4)Virgilio ibarra, PEDIATRIC OCCUPATIONAL THERAPIST Branch Essential Essential 80100-2 Active 2021-08-06 Martinez, hypertensi hypertensi 16:27:30 Branch on on (I10) (401.9)Virgilio ibarra, PEDIATRIC OCCUPATIONAL THERAPIST Branch Thiamine Thiamine 01752-6 Active 2021-08-03 Martinez 2.16.84 deficiency deficiency 10:36:03 Branch 0.1.113 (E51.9) 883.4.2 (265.1)Virgilio lis, PEDIATRIC OCCUPATIONAL THERAPIST Branch Allergies, Adverse Reactions, Alerts Allergy Allergy Status Severity Reaction(s) Onset Inactive Treating Comm ents Source Name Type Date Date Clinician No Known Allergy Active 2021-11 2.16.84 Drug 0-27 0.1.113 Allergie 00:00: 883.4.2 s 00 No Known Allergy Active 2020-0 2.16.84 Allergie 9-13 0.1.113 s 00:00: 883.4.2 00 No Known DA Active U 2020-0 [facility] [place] [facility] No Known DA Active U 2020-0 [facility] [place] 00:[place]: [address] No Known Allergy Active 2020-0 Drug 8-13 Allergie 00:00: s 00 No Known Allergy Active 2020-0 Allergie 7-09 s 00:00: 00 No Known Allergy Active 2020-0 Drug 7-09 Allergie 00:00: s 00 No Known DA Active U 2020-0 [facility]ie 5-04 [place] 00:00: [address] No Known DA Active U 2020-0 [facility]ie 5-04 [place] 00:[place]: [address] No Known DA Active U 2016-0 [facility]ie 1-05 [place] 00:[place]: [address] No Known DA Active U 2016-0 [facility]ie 1-05 [place] 00:[place]: [address] NO KNOWN Allergy Active [facility] Social History Social Habit Start Date Stop Date Quantity Comments Source History of Cigarette [facility] History SDOH [facility] History SDOH [facility] History SDOH [facility] Alcohol Use: Heavy alcohol 40 beers per day 2.1 0.1.11 use. according to 3883.4.2 patient and Drug Use: No drug use. .1.1 1 3882.4.2 Tobacco use: Never smoker. 01.06.840. 1.11 3883.4.2 Tobacco/Smoke None. .1. 11 Exposure: 3.4.2 Vaping/JUULing: Never smoker. 2.16.8 40.1.11 3883.4.2 Alcohol intake 2017-04-13 2017-04-13 Current drinker NNAMDI Hutchins 00:00:00 00:00:00 of alcohol [facility] (finding[facility] History SDOH 2017 2017 all beers/pt NNAMDI Virgen es Alcohol Comment 00:00:00 00:00:00 Medical Center Cigarettes smoked 2017-04-08 2017-04-08 [facility] current (pack per 00:00:00 00:00:00 Medical day) - Reported Center Sex Assigned At [birth year] [facility] aravinds 00:00:00 00:00:00 Medical Center Smoking Status Start Date Stop Date Source Tobacco smoking consumption unknown Never smoked tobacco Current some day smoker 2017-04-13 00:00:00 [facility] Medications Ordered Filled Start Stop Current Ordering Indication Dosage Frequency Signature Comments Components Source Medication Medication Date Date Medication? Clinician (SIG) Name Name Lisinopril 2021-11 No 1{Table QD Lisinopril 2.16.84 5 MG Oral 0-27 t} 5 MG Oral 0.1.1 13 Tablet 00:00: Tablet; 1 883.4. 2 00 (one) Tablet daily for 0 days Quantity: 30 {Tablet}Re fills: 1Ordered: MD Tracey Pedersen t: 2 Lisinopril 2021-11 No 1{Table QD Lisinopril 2.16.84 5 MG Oral 0-27 t} 5 MG Oral 0.1.1 13 Tablet 00:00: Tablet; 1 883.4. 2 00 (one) Tablet daily for 0 days Quantity: 30 {Tablet}Re fills: 1Ordered: MD Tracey Pedersen t: 2 Lisinopril 2021-11 No 1{Table QD Lisinopril 2.16.84 5 MG Oral 0-27 t} 5 MG Oral 0.1.1 13 Tablet 00:00: Tablet; 1 883.4. 2 00 (one) Tablet daily for 0 days Quantity: 30 {Tablet}Re fills: 1Ordered: MD Tracey Pedersen t: 2 Lisinopril 2021-11 No 1{Table QD Lisinopril 2.16.84 5 MG Oral 0-27 t} 5 MG Oral 0.1.1 13 Tablet 00:00: Tablet; 1 883.4. 2 00 (one) Tablet daily for 0 days Quantity: 30 {Tablet}Re fills: 1Ordered: MD Tracey Pedersen t: 2 No Known No No Known Historical 9-13 Historical Medications 09:57: Medication 46 s No Known No No Known Historical 9-13 Historical Medications 09:57: Medication 46 s No Known No No Known Historical 9-13 Historical Medications 09:57: Medication 46 s No Known No No Known Historical 9-13 Historical Medications 09:57: Medication 46 s PT NOT No 1 PT NOT USING ANY 9-13 USING ANY OTC AND 09:57: OTC AND HERBAL 39 HERBAL MEDICATIONS MEDICATION ( Tablet) S ( (Free Text) Tablet) (Free Text); 1 (one)Statu s: Inactive PT NOT No 1 PT NOT USING ANY 9-13 USING ANY OTC AND 09:57: OTC AND HERBAL 39 HERBAL MEDICATIONS MEDICATION ( Tablet) S ( (Free Text) Tablet) (Free Text); 1 (one)Statu s: Inactive PT NOT No 1 PT NOT USING ANY 9-13 USING ANY OTC AND 09:57: OTC AND HERBAL 39 HERBAL MEDICATIONS MEDICATION ( Tablet) S ( (Free Text) Tablet) (Free Text); 1 (one)Statu s: Inactive PT NOT No 1 PT NOT USING ANY 9-13 USING ANY OTC AND 09:57: OTC AND HERBAL 39 HERBAL MEDICATIONS MEDICATION ( Tablet) S ( (Free Text) Tablet) (Free Text); 1 (one)Statu s: Inactive Lisinopril No 1{Table QD Lisinopril 10 MG Oral 9-13 t} 10 MG Oral Tablet 00:00: Tablet; 1 00 (one) Tablet daily for 0 daysQuanti ty: 30 {Tablet}Re fills: 2Ordered: 1VELMA HenriquezP [facility] t: 1 EpiPen 2020-0 No 1{each} EpiPen 2-Elvis 0.3 9-13 2-Elvis 0.3 MG/0.3ML 00:00: MG/0.3ML Injection 00 Injection Solution Solution Auto-inject Auto-injec or tor; 1 (one) each use as directed per instructio ns in pack. Then call 911 immediatel y. for 0 daysQuanti ty: 1 {Package}R efills: 1Ordered: 1Martinez PEDIATRIC OCCUPATIONAL THERAPIST [facility] t: 1 Lisinopril 2020-0 No 1{Table QD Lisinopril 10 MG Oral - t} 10 MG Oral Tablet 00:00: Tablet; 1 00 (one) Tablet daily for 0 daysQuanti ty: 30 {Tablet}Re fills: 2Ordered: 1VELMA HenriquezP Bran[facility] t: 1 EpiPen 2020-0 No 1{each} EpiPen 2-Elvis 0.3 -13 2-Elvis 0.3 MG/0.3ML 00:00: MG/0.3ML Injection 00 Injection Solution Solution Auto-inject Auto-injec or tor; 1 (one) each use as directed per instructio ns in pack. Then call 911 immediatel y. for 0 daysQuanti ty: 1 {Package}R efills: 1Ordered: 1Martinez PEDIATRIC OCCUPATIONAL THERAPIST Branchar t: 1 Lisinopril 2020-0 No 1{Table QD Lisinopril 10 MG Oral 9-13 t} 10 MG Oral Tablet 00:00: Tablet; 1 00 (one) Tablet daily for 0 daysQuanti ty: 30 {Tablet}Re fills: 2Ordered: 1Martinez PEDIATRIC OCCUPATIONAL THERAPIST [facility] t: 1 EpiPen 2020-0 No 1{each} EpiPen 2-Elvis 0.3 9-13 2-Elvis 0.3 MG/0.3ML 00:00: MG/0.3ML Injection 00 Injection Solution Solution Auto-inject Auto-injec or tor; 1 (one) each use as directed per instructio ns in pack. Then call 911 immediatel y. for 0 daysQuanti ty: 1 {Package}R efills: 1Ordered: 1WiVELMA moralesP [facility] t: 1 Lisinopril 2020- No 1{Table QD Lisinopril 10 MG Oral 9-13 t} 10 MG Oral Tablet 00:00: Tablet; 1 00 (one) Tablet daily for 0 daysQuanti ty: 30 {Tablet}Re fills: 2Ordered: 1Willsheridan, PEDIATRIC OCCUPATIONAL THERAPIST [facility] t: 1 PT NOT No 1 PT NOT USING ANY 8-13 USING ANY OTC AND 13:21: OTC AND HERBAL 38 HERBAL MEDICATIONS MEDICATION ( Tablet) S ( (Free Text) Tablet) (Free Text); 1 (one) No Known No No Known Historical 8-13 Historical Medications 13:21: Medication 37 s No Known No No Known Historical 7-09 Historical Medications 13:15: Medication 54 s Vital Signs Vital Name Observation Time Observation Value Comments Source Temperature 2022-09-16 16:10:29 98.3 [degF] Method: Oral 2.16.840 .1.11 3883.4.2 Pulse 2022-09-16 16:10:29 93 /min Pattern: Regular 2.16 .840.1.11 3883.4.2 Respiration Rate 2022-09-16 16:10:29 16 /min Pattern: 2.16 .840.1.11 Unlabored 3883.4.2 BP Systolic 2022-09-16 16:10:29 145 mm[Hg] Patient Position: 2.1 6.840.1.11 Sitting; Cuff 3883.4.2 Location: Left Arm; Cuff Size: Standard BP Diastolic 2022-09-16 16:10:29 69 mm[Hg] Patient Position: 2.1 6.840.1.11 Sitting; Cuff 3883.4.2 Location: Left Arm; Cuff Size: Standard Weight 2022-09-16 16:10:29 201.5 [lb_av] 2.16.84 0.1.11 3883.4.2 Height 2022-09-16 16:10:29 69 [in_us] 2.16.840 .1.11 3883.4.2 BMI 2022-09-16 16:10:29 29.76 kg/m2 2.16.840 .1.11 3883.4.2 Temperature 2021-08-03 09:53:34 97.5 [degF] Method: Oral 2.16.840 .1.11 3883.4.2 Pulse 2021-08-03 09:53:34 89 /min Pattern: Regular 2.16 .840.1.11 3883.4.2 Respiration Rate 2021-08-03 09:53:34 18 /min Pattern: 2.16 .840.1.11 Unlabored 3883.4.2 BP Systolic 2021-08-03 09:53:34 166 mm[Hg] Patient Position: 2.1 6.840.1.11 Sitting; Cuff 3883.4.2 Location: Left Arm; Cuff Size: Standard BP Diastolic 2021-08-03 09:53:34 85 mm[Hg] Patient Position: 2.1 6.840.1.11 Sitting; Cuff 3883.4.2 Location: Left Arm; Cuff Size: Standard Weight 2021-08-03 09:53:34 206 [lb_av] 2.16.840 .1.11 3883.4.2 Height 2021-08-03 09:53:34 69 [in_us] 2.16.840 .1.11 3883.4.2 BMI 2021-08-03 09:53:34 30.42 kg/m2 2.16.840 .1.11 3883.4.2 Temperature 2021-07-03 13:19:20 98.3 [degF] Method: Oral 2.16.840 .1.11 3883.4.2 Pulse 2021-07-03 13:19:20 106 /min Pattern: Regular 2.16 .840.1.11 3883.4.2 Respiration Rate 2021-07-03 13:19:20 16 /min Pattern: 2.16 .840.1.11 Unlabored 3883.4.2 BP Systolic 2021-07-03 13:19:20 162 mm[Hg] Patient Position: 2.1 6.840.1.11 Sitting; Cuff 3883.4.2 Location: Left Arm; Cuff Size: Standard BP Diastolic 2021-07-03 13:19:20 87 mm[Hg] Patient Position: 2.1 6.840.1.11 Sitting; Cuff 3883.4.2 Location: Left Arm; Cuff Size: Standard Weight 2021-07-03 13:19:20 209.125 [lb_av] 2.16. 840.1.11 3883.4.2 Height 2021-07-03 13:19:20 69 [in_us] 2.16.840 .1.11 3883.4.2 BMI 2021-07-03 13:19:20 30.88 kg/m2 2.16.840 .1.11 3883.4.2 Temperature 2021-05-29 13:13:05 97.4 [degF] Method: Oral 2.16.840 .1.11 3883.4.2 Pulse 2021-05-29 13:13:05 93 /min Pattern: Regular 2.16 .840.1.11 3883.4.2 Respiration Rate 2021-05-29 13:13:05 18 /min Pattern: 2.16 .840.1.11 Unlabored 3883.4.2 BP Systolic 2021-05-29 13:13:05 147 mm[Hg] Patient Position: 2.1 6.840.1.11 Sitting; Cuff 3883.4.2 Location: Left Arm; Cuff Size: Standard BP Diastolic 2021-05-29 13:13:05 83 mm[Hg] Patient Position: 2.1 6.840.1.11 Sitting; Cuff 3883.4.2 Location: Left Arm; Cuff Size: Standard Weight 2021-05-29 13:13:05 205.5 [lb_av] 2.16.84 0.1.11 3883.4.2 Height 2021-05-29 13:13:05 69 [in_us] 2.16.840 .1.11 3883.4.2 BMI 2021-05-29 13:13:05 30.35 kg/m2 2.16.840 .1.11 3883.4.2 Procedures Procedure Date / Time Performed Performing Clinician [facility] e DOCUMENTATION OF 2022-09-16 00:00:00 Ivanna Domínguez 2.16.84 0.1.458172. FOLLOW-UP PLAN FOR 4.2 PATIENT WITH BMI ABOVE NORMAL (G8417) [id number] 2022-09-16 00:00:00 Ivanna Domínguez 2.16.840.1.617025. COUNSELING FOR OBESITY 4.2 (G0447) NEGATIVE SCREEN FOR 2022-09-16 00:00:00 Ivanna Domínguez 2.16 .840.1.095539. CLINICAL DEPRESSION, 4.2 FOLLOW-UP NOT REQUIRED (G8510) PATIENT SCREENED FOR 2022-09-16 00:00:00 Ivanna Domínguez 2.1 6.840.1.853959. TOBACCO USE AND 4.2 IDENTIFIED A TOBACCO NON-USER (G9903) SCREENING FOR TOBACCO USE 2022-09-16 00:00:00 Fred Domínguez 2.16.840.1.044701. (4004F) 4.2 DISCHARGE MEDICATIONS 2022-09-16 00:00:00 Ivanna Domínguez 2. 16.840.1.040419. RECONCILED WITH THE 4.2 CURRENT MEDICATION LIST IN OUTPATIENT MEDICAL RECORD (COA) (FELICITAS) (1111F) No Known Past Surgical 2022-09-16 00:00:00 Blaire Easley 2.16. 840.1.599753. History 4.2 XR CHEST 1 VIEW PORTABLE 2022-09-08 02:25:00 Linda Briones [facility] / BEDSIDE [facility] ECG 12-LEAD 2022-09-08 01:57:30 Unknown, H[facility] PERMANENT LAB REPORT - 2022-09-08 00:00:00 Provider, Default [facility] SCAN Scanning [facility] EKG-SCANNED 2022-09-08 00:00:00 Provider, Default [facility] es [facility] Ultrasound, Abdomen 2022-06-09 00:00:00 Ivanna Domínguez 2.16 .840.1.155716. 4.2 No Known Past Surgical 2021-08-03 00:00:00 History No Known Past Surgical 2021-07-03 00:00:00 History [facility] 2021-05-29 00:00:00 Davi Oleary 2. [id number]. COUNSELING FOR OBESITY 4.2 (G0447) DOCUMENTATION OF 2021-05-29 00:00:00 Davi Oleary 2.16.840. [id number]. FOLLOW-UP PLAN FOR 4.2 PATIENT WITH BMI ABOVE NORMAL (G8417) PATIENT SCREENED FOR 2021-05-29 00:00:00 Davi Oleary 2.16. [id number]. TOBACCO USE AND 4.2 IDENTIFIED A TOBACCO NON-USER (G9903) SCREENING FOR TOBACCO USE 2021-05-29 00:00:00 Davi Oleary [id number]. (4004F) 4.2 No Known Past Surgical 2021-05-29 00:00:00 Laly Snyder History REMOVAL, SUTURE, BY 2021-05-29 00:00:00 Davi Oleary 2.16.8 [id number]. PHYSICIAN WHO DID NOT 4.[address] SUTURE (S0630) Patient received annual Blaire Easley 2.16.840 .1.896968. dental check-up 4.2 Patient received annual Laly Snyder dental check-up Patient received annual dental check-up Plan of Care Planned Activity Planned Date Details Comments Source Diagnostic Test 2022-09-21 COMPREHENSIVE METABOLIC Pending 16:49:06 PANEL (16516) [code = 65596] Diagnostic Test 2022-09-21 COMPREHENSIVE METABOLIC Pending 16:49:06 PANEL (06406) [code = 03219] Diagnostic Test 2022-09-21 COMPREHENSIVE METABOLIC Pending 16:49:06 PANEL (82900) [code = 59940] Diagnostic Test 2022-09-21 COMPREHENSIVE METABOLIC Pending 16:49:06 PANEL (64638) [code = 67106] Future Scheduled 2022-07-22 INFLUENZA VACCINE (#1) [facility] 00:[facility] [code = INFLUENZA Medical Ce nter VACCINE (#1)] Future Scheduled 2021-11-[address] [facility] 00:00:00 (12+) [code = Medical Center DEPRESSION SCREENING (12+)] Diagnostic Test 2021-05-29 VITAMIN B12 AND FOLATE Pending 14:22:00 (72710) [code = 66997] Diagnostic Test 2021-05-29 THIAMINE (B-1) (25001) Pending 14:21:54 [code = 75449] Diagnostic Test 2021-05-29 THIAMINE (B-1) (67386) Pending 14:21:54 [code = 60278] Diagnostic Test 2021-05-29 THIAMINE (B-1) (52821) Pending 14:21:54 [code = 48580] Diagnostic Test 2021-05-29 THIAMINE (B-1) (82814) Pending 14:21:54 [code = 83099] Diagnostic Test 2021-05-29 THIAMINE (B-1) (08169) Pending 14:21:54 [code = 57921] Diagnostic Test 2021-05-29 THIAMINE (B-1) (07467) Pending 14:21:54 [code = 57883] Diagnostic Test 2021-05-29 THIAMINE (B-1) (77782) Pending 14:21:54 [code = 06057] Diagnostic Test 2021-05-29 THIAMINE (B-1) (12495) Pending 14:21:54 [code = 08700] Diagnostic Test 2021-05-29 THIAMINE (B-1) (62558) Pending 14:21:54 [code = 18977] Diagnostic Test 2021-05-29 THIAMINE (B-1) (71303) Pending 14:21:54 [code = 40076] Diagnostic Test 2021-05-29 PT (PROTHROMBIN TIME) Pending 14:18:14 (69066) [code = 41492] Diagnostic Test 2021-05-29 THYROID-STIMULATION Pending 14:17:59 HORMONES(TSH) REFLEX T4 FREE (24335) [code = 47468] Diagnostic Test 2021-05-29 LIPID PANEL (64922) Pending 14:17:52 [code = 35188] Diagnostic Test 2021-05-29 COMPREHENSIVE METABOLIC Pending 14:17:42 PANEL (58082) [code = 54231] Diagnostic Test 2021-05-29 CBC WITH Pending 14:17:20 DIFFERENTIAL/PLATELET (00718) [code = 28769] Future Scheduled 2018-04-08 Screening for malignant [facility] 00:00:00 neoplasm of colon Medical Ce nter (procedure) [code = 742300148] Future Scheduled 2018-04-08 Screening for malignant [facility] 00:00:00 neoplasm of colon Medical Ce nter (procedure) [code = 286283715] Future Scheduled 2008 Lipid panel (procedure) [facility] 00:00:00 [code = 38818248] Medical Ce nter Future Scheduled 1992 DTAP/TDAP/TD VACCINES [facility] 00:00:00 (1 - Tdap) [code = Medical C enter DTAP/TDAP/TD VACCINES (1 - Tdap)] Future Scheduled 1991 HEPATITIS C [facility]CRE[facility]ING [facility] 00:00:00 [code = HEPATITIS C Medical Center SCREENING] Future Scheduled [address] [facility] 00:00:00 Counseling and Medical Cente r Screening (12+) [code = Tobacco Cessation Counseling and Screening (12+)] Future Scheduled [address] [facility] 00:00:00 0-64 YRS (1 - PCV) Medical C enter [code = PNEUMOCOCCAL VACCINE 0-64 YRS (1 - PCV)] Future Scheduled 1973 COVID-19 VACCINE (#1) [facility] 00:00:00 [code = COVID-[address] VACCINE (#1)] Future Scheduled 1973 CT Colonography (combo) [facility] 00:00:00 [code = CT Colonography [facility] (combo)] Future Scheduled 1973 Screening for malignant [facility] 00:00:00 neoplasm of colon Medical Ce nter (procedure) [code = 605001193] Future Scheduled 1973 Screening for malignant [facility] 00:00:00 neoplasm of colon Medical Ce nter (procedure) [code = 860088267] Future Scheduled 1973 Sigmoidoscopy [code = [facility] S[facility]oscopy] Medical Cente r Encounters Start End Encounter Admission Attending Care Care Encounter Source Date/Time Date/Time Type Type Clinicians Facility Department ID 2022-09-15 Outpatient Yajaira Rosas [facility] [id number] [place] 08:33:[address] [facility] [id number] [facility] 2022-09-14 Outpatient ERIKA BlanchardCH [facility] [id number] [place] 11:28:[address] [facility] [id number] [facility] 2022-02-24 Outpatient Mamta, [facility] [id number] [facility] 09:01:[address] [place] [address] 2022-02-13 Outpatient [facility] [id number] [place] 05:58:27 [id number] [facility] 2021-03-24 Inpatient [facility] [id number] [facility] 09:04:[address] [place] [address] 2022-10-06 2022-10-06 Outpatient SFA SFA [id number]- Aram 10:41:21 10:41:21 [id number] F Jose 2022-09-16 2022-09-17 Office 0 [place] [id number] 15:45:00 10:24:36 Visit 22 2022-09-16 2022-09-16 Outpatient Yajaira Rosas [facility] [id number] [place] 16:09:00 16:09:00 [facility] [id number] [facility] 2022-09-08 2022-09-08 Emergency [facility] [id number] 01:51:00 03:48:00 3 [facility] 2022-09-08 2022-09-08 Emergency ER [facility] Emergency [id number] [facility] 01:51:00 03:48:00 3 2022-09-08 2022-09-08 Orders [facility] [id number] 00:00:00 00:00:00 Only [facility] 2021-08-03 2021-08-06 Office 0 [place] [id number] 09:46:30 16:31:58 Visit 64 2021-08-03 2021-08-03 Outpatient Yajaira Rosas [facility] [id number] [place] 09:27[facility]00 [id number] 2021-07-10 2021-07-11 Emergency EM Wm, [facility] [id number] [facility] 22:52:00 05:00:00 James 29 [facility] 2021-07-03 2021-07-03 Office 0 [place] [id number] 13:18:56 14:31:16 Visit 43 2021-07-03 2021-07-03 Outpatient ERIKA Blanchard [facility] [id number] [place] 13:16:00 13:16:00 [facility] [id number] [facility] 2021-06-09 2021-06-09 Outpatient JOSÉ Oleary, [facility] [id number] [facility] 08:13:00 08:13:00 Davi 42 [facility] 2021-05-29 2021-05-29 Office 0 [place] [id number] 13:12:31 14:59:57 Visit 63 2021-05-29 2021-05-29 Outpatient ERIKA Blanchard [facility] [id number] [place] 13:09:00 13:09:00 [facility] [id number] [facility] 2020-10-02 2020-10-02 Emergency EM Yarely, [facility] [id number] [facility] 18:49:00 23:30:00 Emil 13 [facility] Results Test Description Test Time Test Comments Results Result Sourc e Comments RAD, CHEST, 1 2022-09-08 Chest Pain VIEW, NON DEPT 03:23:00 [facility] 1975 Sex: M FINAL REPORT RAD, CHEST, 1 VIEW, NON DEPT CLINICAL STATEMENT: Chest pain. COMPARISON: Chest radiograph dated 2017. FINDINGS: Cardiomediastinal silhouette is within normal limits. There is no focal lung consolidation or pleural effusion. No evidence of pulmonary edema or pneumothorax. IMPRESSION: No acute cardiopulmonary disease. Signed: Vivienne Crews Verified Date/Time: 09/08/2022 03:23:21 - US ABDOMEN 2021-06-09 COMPLETE 11:40:00 [facility] 1975 Sex: M Patient Name: VIRGIL MCKENZIE Unit No: [id number] EXAMS: CPT CODE: [id number] US ABDOMEN COMPLETE 37373 Site ID: [id number] Abdominal ultrasound complete HISTORY: R 19.07 FINDINGS: The liver is enlarged, measuring greater than 20 cm craniocaudal demonstrating homogeneously increased echotexture which limits sonographic beam penetration. No hepatic mass lesion or ascites is demonstrated. Main portal venous flow is hepatopedal. The gallbladder is sonolucent, with no gallbladder wall thickening, pericholecystic fluid or stones. The common duct measures 4 mm. The spleen, visualized aorta and IVC appear normal. The pancreas is completely obscured by overlying bowel gas. Both kidneys are normal in size and echotexture. The right kidney measures 11.4 x 6.4 cm and the left kidney measures 12.3 x 7.3 cm. A 4 cm isoechoic partially exophytic lesion is demonstrated within the mid pole left kidney, this could reflect an isoechoic solid mass or a benign from injury from but is not well delineated by ultrasound. No hydronephrosis is present. IMPRESSION: Hepatomegaly with moderate diffuse hepatic steatosis. No hepatic mass lesion or ascites demonstrated. Isoechoic slightly exophytic questionable 4 cm left midpole renal mass versus a dromedary hump. Further evaluation with pre and postcontrast CT is advised to exclude a true mass. at 1140 Reported and signed by: Flavio Amaro M.D. CC: Davi Oleary DO Technologist: Jossy Engle RDMS Trnscrbd D/ (1140) [email or web address] Probe: Orig Print D/T: S: 06/09/2021 (1143) Probe: 508 Imaging NAME: JONAHMARIANOVIRGIL [address] [place] [address] PHYS: [id number] Davi Kern [place] : 1975 AGE: 46 S[facility]: [facility] [id number] [id number] LOC: [id number] PHONE #: [phone] EXAM DATE: 06/09/2021 STATUS: REG CLI FAX #: [phone] RAD NO: Page 1 Signed Report - US ABDOMEN 2021-06-09 COMPLETE 11:40:00 [facility] : 1975 Sex: M Patient Name: VIRGIL MCKENZIE Unit No: [id number] EXAMS: CPT CODE: [id number] US ABDOMEN COMPLETE 89959 Site ID: [id number] Abdominal ultrasound complete HISTORY: R 19.07 FINDINGS: The liver is enlarged, measuring greater than 20 cm craniocaudal demonstrating homogeneously increased echotexture which limits sonographic beam penetration. No hepatic mass lesion or ascites is demonstrated. Main portal venous flow is hepatopedal. The gallbladder is sonolucent, with no gallbladder wall thickening, pericholecystic fluid or stones. The common duct measures 4 mm. The spleen, visualized aorta and IVC appear normal. The pancreas is completely obscured by overlying bowel gas. Both kidneys are normal in size and echotexture. The right kidney measures 11.4 x 6.4 cm and the left kidney measures 12.3 x 7.3 cm. A 4 cm isoechoic partially exophytic lesion is demonstrated within the mid pole left kidney, this could reflect an isoechoic solid mass or a benign from injury from but is not well delineated by ultrasound. No hydronephrosis is present. IMPRESSION: Hepatomegaly with moderate diffuse hepatic steatosis. No hepatic mass lesion or ascites demonstrated. Isoechoic slightly exophytic questionable 4 cm left midpole renal mass versus a dromedary hump. Further evaluation with pre and postcontrast CT is advised to exclude a true mass. at 1140 Reported and signed by: Flavio Amaro M.D. CC: Davi Oleary DO Technologist: Jossy Engle RDMS Trnscrbd D/ (1140) [email or web address] Probe: Orig Print D/T: S: 06/09/2021 (1143) Probe: 508 Imaging NAME: VIRGIL MCKENZIE [address] [place] [address] PHYS: [id number] - Davi Oleary [place], [place] : 1975 AGE: 46 SEX: M [id number] LOC: UNK PHONE #: [phone] EXAM DATE: 06/09/2021 STATUS: DEP CLI FAX #: [phone] RAD NO: Page 1 Signed Report CBC WITH DIFFERENTIAL/PLATELET (03839) 2021-05-29 00:00:00 Test Item Value Reference Range Interpretation Comme nts WHITE BLOOD CELL COUNT 10.0 3.8-10.8 N UNITS : Thousand/uL (test code = 6690-2) RED BLOOD CELL COUNT (test 3.96 {Million/uL} 4.20-5.80 A code = 789-8) HEMOGLOBIN (test code = 12.4 g/dL 13.2-17.1 A 718-7) HEMATOCRIT (test code = 35.6 % 38.5-50.0 A 4544-3) MCV (test code = 787-2) 89.9 fL 80.0-100.0 N MCH (test code = 785-6) 31.3 pg 27.0-33.0 N MPV (test code = 776-5) 10.9 fL 7.5-12.5 N NEUTROPHILS (test code = 74.6 % 8946-2959 N 751-8) ABSOLUTE LYMPHOCYTES (test 1400 {cells/uL} 850-3900 N code = 731-0) ABSOLUTE MONOCYTES (test 1040 {cells/uL} 200-950 A code = 742-7) ABSOLUTE EOSINOPHILS (test 60 {cells/uL} 15-500 N code = 711-2) MCHC (test code = 786-4) 34.8 g/dL 32.0-36.0 N RDW (test code = 788-0) 13.7 % 11.0-15.0 N PLATELET COUNT (test code = 85 140-400 A UNITS: Thousand/uL 777-3) ABSOLUTE BASOPHILS (test 40 {cells/uL} 0-200 N code = 704-7) LYMPHOCYTES (test code = 14.0 % N 736-9) MONOCYTES (test code = 10.4 % N 5905-5) EOSINOPHILS (test code = 0.6 % N 713-8) BASOPHILS (test code = 0.4 % N Test Performed at:[facility] 706-2) [facility] [id number] [place] [address] JOSE ROBERTO KEATING MD COMPREHENSIVE METABOLIC PANEL ([id number])2021-05-29 00:00:00 Test Item Value Reference Range Interpretation Comments GLUCOSE (test code = 123 mg/dL 65-99 A Fasting reference 2345-7) intervalFor joceline eone without known d iabetes, a glucose value between 100 and 125 mg/ dL is consistent withprediabetes and should be confi rmed with afollow-up test. UREA NITROGEN (BUN) 3 mg/dL 7-25 A (test code = UREA NITROGEN (BUN)) CREATININE (test 0.55 mg/dL 0.60-1.35 A code = 2160-0) BUN/CREATININE RATIO 5 6-22 A (test code = 3094-0) eGFR NON-AFR. 123 N UNITS: mL/min/ 1.73m2 [place] (test code = eGFR NON-AFR. [place]) eGFR 143 N UNITS: mL/min/1 .73m2 [place] (test code = eGFR ) SODIUM (test code = 131 mmol/L 135-146 A 2951-2) POTASSIUM (test code 3.8 mmol/L 3.5-5.3 N = 2823-3) CHLORIDE (test code 94 mmol/L 98-110 A = 2075-0) CARBON DIOXIDE (test 26 mmol/L 20-32 N code = CARBON DIOXIDE) CALCIUM (test code = 8.7 mg/dL 8.6-10.3 N 25193-3) PROTEIN, TOTAL (test 8.4 g/dL 6.1-8.1 A code = 2885-2) ALBUMIN (test code = 3.9 g/dL 3.6-5.1 N 1751-7) GLOBULIN (test code 4.5 1.9-3.7 A UNITS: g /dL (calc) = 87036-2) ALBUMIN/GLOBULIN 0.9 1.0-2.5 A RATIO (test code = 1759-0) BILIRUBIN, TOTAL 1.2 mg/dL 0.2-1.2 N (test code = 1975-2) ALKALINE PHOSPHATASE 238 U/L 36-130 A (test code = 6768-6) AST (test code = 160 U/L 10-40 A 1920-8) ALT (test code = 39 U/L 9-46 N Test Perfor med at:[facility] 1742-6) [facility] [id number] [place] [address] Harika KEATING MD LIPID PANEL ([id number])2021-05-29 00:00:00 Test Item Value Reference Range Interpretation Comments CHOLESTEROL, TOTAL 145 mg/dL N (test code = 2093-3) HDL CHOLESTEROL (test 33 mg/dL A code = 2085-9) TRIGLYCERIDES (test 122 mg/dL N code = 2571-8) CHOL/HDLC RATIO (test 4.4 N code = 9830-1) LDL-CHOLESTEROL (test 90 N UNITS: mg/dL code = 75219-3) (calc)Refere nce range: <100Desirable r aruna <100 mg/dL for primary prevention;<70 mg/dL for patients wi th CHD or diabetic patientswith > or = 2 CHD risk factor s.LDL-C is now calculat ed using the [facility] alculati on, which is a validated novel method providingbetter accuracy than yandel Martin equa tion in theestimation o f LDL-C.Jonas SS et al. ANJEL. 2013;310( 19): 0386-1350(http: //educat ion.[facility].co m/faq/QRV397) NON HDL CHOLESTEROL 112 N UNITS: m g/dL (calc)For (test code = 76292-5) patien ts with diabetes plus 1 major CVD riskfactor, shavon ating to a non-HDL-C goa l of <100 mg/dL(LDL- C of <70 mg/dL) is consi dered a therapeuticopti on.Test Performed at:[facility] [id number] [place] [address] Harika KEATING MD THYROID-STIMULATION HORMONES(TSH) REFLEX T4 FREE (90043)2021-05-29 00:00:00 Test Item Value Reference Range Interpretation Comments TSH W/REFLEX TO 3.66 {mIU/L} 0.40-4.50 N Test Perform ed at:[facility] (test code = [facility] [id number] 3016-3) [place] [address] Harika KEATING MD PT (PROTHROMBIN TIME) (73047)2021-05-29 00:00:00 Test Item Value Reference Range Interpretation Comments INR (test code = 1.1 N Reference R aruna 6301-6) 0.9-1.1Moderate -intensity Warfarin Therap y 2.0-3.0Higher-i ntensity Warfarin Therap y 3.0-4.0 PT (test code = 11.0 {sec} 9.0-11.5 N For addition al 5902-2) information, pl ease refer tohttp://educat ion.[employer]/ faq/ZDO436 (This link is b eing provided for informational/e ducational purposes only.) Test Performed at:[facility] [id number] [place] [address] JOSE ROBERTO KEATING MD VITAMIN B12 AND FOLATE ([id number])2021-05-29 00:00:00 Test Item Value Reference Range Interpretation Comments VITAMIN B12 (test 520 pg/mL 200-1100 N code = 2132-9) FOLATE, SERUM (test 7.1 ng/mL N Referenc e Range Low: code = 2284-8) <3.4 Borderli ne: 3.4-5.4 Normal: >5.4Tes t Performed at:[facility] [id number] [place] [address] Harika KEATING MD CBC WITH DIFFERENTIAL/PLATELET (16149)2021-05-29 00:00:00 Test Item Value Reference Range Interpretation Comments WHITE BLOOD CELL 10.0 3.8-10.8 N UNITS: Thou sand/uL COUNT (test code = 6690-2) RED BLOOD CELL COUNT 3.96 4.20-5.80 A (test code = 789-8) {Million/uL} HEMOGLOBIN (test 12.4 g/dL 13.2-17.1 A code = 718-7) HEMATOCRIT (test 35.6 % 38.5-50.0 A code = 4544-3) MCV (test code = 89.9 fL 80.0-100.0 N 787-2) MCH (test code = 31.3 pg 27.0-33.0 N 785-6) MCHC (test code = 34.8 g/dL 32.0-36.0 N 786-4) RDW (test code = 13.7 % 11.0-15.0 N 788-0) PLATELET COUNT (test 85 140-400 A UNITS: Thousand/uL code = 777-3) MPV (test code = 10.9 fL 7.5-12.5 N 776-5) NEUTROPHILS (test 74.6 % 4530-0829 N code = 751-8) ABSOLUTE LYMPHOCYTES 1722 660-1078 N (test code = 731-0) {cells/uL} ABSOLUTE MONOCYTES 1040 200-950 A (test code = 742-7) {cells/uL} ABSOLUTE EOSINOPHILS 60 {cells/uL} 15-500 N (test code = 711-2) ABSOLUTE BASOPHILS 40 {cells/uL} 0-200 N (test code = 704-7) LYMPHOCYTES (test 14.0 % N code = 736-9) MONOCYTES (test code 10.4 % N = 5905-5) EOSINOPHILS (test 0.6 % N code = 713-8) BASOPHILS (test code 0.4 % N Test Pe rformed = 706-2) at:[facility] [id number] [place] [address] JOSE ROBERTO KEATING MD COMPREHENSIVE METABOLIC PANEL ([id number])2021-05-29 00:00:00 Test Item Value Reference Range Interpretation Comments GLUCOSE (test code = 123 mg/dL 65-99 A Fasting reference 2345-7) intervalFor joceline eone without known d iabetes, a glucose value between 100 and 125 mg/ dL is consistent withprediabetes and should be confi rmed with afollow-up test. UREA NITROGEN (BUN) 3 mg/dL 7-25 A (test code = UREA NITROGEN (BUN)) CREATININE (test 0.55 mg/dL 0.60-1.35 A code = 2160-0) eGFR NON-AFR. 123 N UNITS: mL/min/ 1.73m2 [place] (test code = eGFR NON-AFR. [place]) eGFR 143 N UNITS: mL/min/1 .73m2 [place] (test code = eGFR ) BUN/CREATININE RATIO 5 6-22 A (test code = 3094-0) SODIUM (test code = 131 mmol/L 135-146 A 2951-2) POTASSIUM (test code 3.8 mmol/L 3.5-5.3 N = 2823-3) CHLORIDE (test code 94 mmol/L 98-110 A = 2074-0) CARBON DIOXIDE (test 26 mmol/L 20-32 N code = CARBON DIOXIDE) CALCIUM (test code = 8.7 mg/dL 8.6-10.3 N 30835-6) PROTEIN, TOTAL (test 8.4 g/dL 6.1-8.1 A code = 2885-2) ALBUMIN (test code = 3.9 g/dL 3.6-5.1 N 1751-7) GLOBULIN (test code 4.5 1.9-3.7 A UNITS: g /dL (calc) = 76149-2) ALBUMIN/GLOBULIN 0.9 1.0-2.5 A RATIO (test code = 1759-0) BILIRUBIN, TOTAL 1.2 mg/dL 0.2-1.2 N (test code = 1974-2) ALKALINE PHOSPHATASE 238 U/L 36-130 A (test code = 6768-6) AST (test code = 160 U/L 10-40 A 1919-8) ALT (test code = 39 U/L 9-46 N Test Perfor med at:[facility] 174-6) [facility] [id number] [place] [address] R PARKER KEATING MD LIPID PANEL ([id number])2021-05-29 00:00:00 Test Item Value Reference Range Interpretation Comments CHOLESTEROL, TOTAL 145 mg/dL N (test code = 2092-3) HDL CHOLESTEROL (test 33 mg/dL A code = 2084-9) TRIGLYCERIDES (test 122 mg/dL N code = 2571-8) LDL-CHOLESTEROL (test 90 N UNITS: mg/dL code = 19483-4) (calc)Refere nce range: <100Desirable r aruna <100 mg/dL for primary prevention;<70 mg/dL for patients wi th CHD or diabetic patientswith > or = 2 CHD risk factor s.LDL-C is now calculat ed using the [facility] alculati on, which is a validated novel method providingbetter accuracy than yandel Martin equa tion in theestimation o f LDL-C.Jonas SS et al. ANJEL. 2013;310( 19): 2184-1662(http: //educat ion.[facility] [employer].co m/faq/LFY883) CHOL/HDLC RATIO (test 4.4 N code = 9830-1) NON HDL CHOLESTEROL 112 N UNITS: m g/dL (calc)For (test code = 92719-8) patien ts with diabetes plus 1 major CVD riskfactor, shavon ating to a non-HDL-C goa l of <100 mg/dL(LDL- C of <70 mg/dL) is consi dered a therapeuticopti on.Test Performed at:[facility] [id number] [place] [address] Harika KEATING MD THYROID-STIMULATION HORMONES(TSH) REFLEX T4 FREE (23707)2021-05-29 00:00:00 Test Item Value Reference Range Interpretation Comments TSH W/REFLEX TO 3.66 {mIU/L} 0.40-4.50 N Test Perform ed at:[facility] FT4 (test code = DIAGNOSTICS [id number] 3016-3) [place] [address] Harika KEATING MD PT (PROTHROMBIN TIME) ([id number])2021-05-29 00:00:00 Test Item Value Reference Range Interpretation Comments INR (test code = 1.1 N Reference R aruna 6301-6) 0.9-1.1Moderate -intensity Warfarin Therap y 2.0-3.0Higher-i ntensity Warfarin Therap y 3.0-4.0 PT (test code = 11.0 {sec} 9.0-11.5 N For addition al 5902-2) information, pl ease refer tohttp://educat ion.[employer]/ faq/EZG445 (This link is b eing provided for informational/e ducational purposes only.) Test Performed at:[facility] [id number] [place] [address] DANE KEATING MD VITAMIN B12 AND FOLATE (43239)2021-05-29 00:00:00 Test Item Value Reference Range Interpretation Comments VITAMIN B12 (test 520 pg/mL 200-1100 N code = 2132-9) FOLATE, SERUM (test 7.1 ng/mL N Referenc e Range Low: code = 2284-8) <3.4 Borderli ne: 3.4-5.4 Normal: >5.4Tes t Performed at:[facility] [id number] [place] [address] Harika KEATING MD CBC WITH DIFFERENTIAL/PLATELET (52348)2021-05-29 00:00:00 Test Item Value Reference Range Interpretation Comments WHITE BLOOD CELL 10.0 3.8-10.8 N UNITS: Thou sand/uL COUNT (test code = 6690-2) RED BLOOD CELL COUNT 3.96 4.20-5.80 A (test code = 789-8) {Million/uL} HEMOGLOBIN (test 12.4 g/dL 13.2-17.1 A code = 718-7) HEMATOCRIT (test 35.6 % 38.5-50.0 A code = 4544-3) MCV (test code = 89.9 fL 80.0-100.0 N 787-2) MCH (test code = 31.3 pg 27.0-33.0 N 785-6) MPV (test code = 10.9 fL 7.5-12.5 N 776-5) NEUTROPHILS (test 74.6 % 8678-8565 N code = 751-8) ABSOLUTE LYMPHOCYTES 4361 464-7122 N (test code = 731-0) {cells/uL} ABSOLUTE MONOCYTES 1040 200-950 A (test code = 742-7) {cells/uL} ABSOLUTE EOSINOPHILS 60 {cells/uL} 15-500 N (test code = 711-2) MCHC (test code = 34.8 g/dL 32.0-36.0 N 786-4) RDW (test code = 13.7 % 11.0-15.0 N 788-0) PLATELET COUNT (test 85 140-400 A UNITS: Thousand/uL code = 777-3) ABSOLUTE BASOPHILS 40 {cells/uL} 0-200 N (test code = 704-7) LYMPHOCYTES (test 14.0 % N code = 736-9) MONOCYTES (test code 10.4 % N = 5905-5) EOSINOPHILS (test 0.6 % N code = 713-8) BASOPHILS (test code 0.4 % N Test Pe rformed = 706-2) at:[facility] [id number] [place] [address] JOSE ROBERTO KEATING MD COMPREHENSIVE METABOLIC PANEL ([id number])2021-05-29 00:00:00 Test Item Value Reference Range Interpretation Comments GLUCOSE (test code = 123 mg/dL 65-99 A Fasting reference 2345-7) intervalFor joceline eone without known d iabetes, a glucose value between 100 and 125 mg/ dL is consistent withprediabetes and should be confi rmed with afollow-up test. UREA NITROGEN (BUN) 3 mg/dL 7-25 A (test code = UREA NITROGEN (BUN)) CREATININE (test 0.55 mg/dL 0.60-1.35 A code = 2160-0) BUN/CREATININE RATIO 5 6-22 A (test code = 3094-0) eGFR NON-AFR. 123 N UNITS: mL/min/ 1.73m2 [place] (test code = eGFR NON-AFR. [place]) eGFR 143 N UNITS: mL/min/1 .73m2 [place] (test code = eGFR ) SODIUM (test code = 131 mmol/L 135-146 A 2951-2) POTASSIUM (test code 3.8 mmol/L 3.5-5.3 N = 2823-3) CHLORIDE (test code 94 mmol/L 98-110 A = 2075-0) CARBON DIOXIDE (test 26 mmol/L 20-32 N code = CARBON DIOXIDE) CALCIUM (test code = 8.7 mg/dL 8.6-10.3 N 32042-6) PROTEIN, TOTAL (test 8.4 g/dL 6.1-8.1 A code = 2885-2) ALBUMIN (test code = 3.9 g/dL 3.6-5.1 N 1751-7) GLOBULIN (test code 4.5 1.9-3.7 A UNITS: g /dL (calc) = 75338-9) ALBUMIN/GLOBULIN 0.9 1.0-2.5 A RATIO (test code = 1759-0) BILIRUBIN, TOTAL 1.2 mg/dL 0.2-1.2 N (test code = 1974-2) ALKALINE PHOSPHATASE 238 U/L 36-130 A (test code = 6768-6) AST (test code = 160 U/L 10-40 A 1920-8) ALT (test code = 39 U/L 9-46 N Test Perfor med at:[facility] 1742-6) [facility] [id number] [place] [address] Harika KEATING MD LIPID PANEL ([id number])2021-05-29 00:00:00 Test Item Value Reference Range Interpretation Comments CHOLESTEROL, TOTAL 145 mg/dL N (test code = 2093-3) HDL CHOLESTEROL (test 33 mg/dL A code = 2085-9) TRIGLYCERIDES (test 122 mg/dL N code = 2571-8) CHOL/HDLC RATIO (test 4.4 N code = 9830-1) LDL-CHOLESTEROL (test 90 N UNITS: mg/dL code = 30015-7) (calc)Refere nce range: <100Desirable r aruna <100 mg/dL for primary prevention;<70 mg/dL for patients wi th CHD or diabetic patientswith > or = 2 CHD risk factor s.LDL-C is now calculat ed using the [facility] alculati on, which is a validated novel method providingbetter accuracy than t shaniqua Martin equa tion in theestimation o f LDL-C.Jonas SS et al. ANJEL. 2013;310( 19): 5627-9514(http: //educat ion.[facility].co m/faq/MKL858) NON HDL CHOLESTEROL 112 N UNITS: m g/dL (calc)For (test code = 58341-5) patien ts with diabetes plus 1 major CVD riskfactor, shavon ating to a non-HDL-C goa l of <100 mg/dL(LDL- C of <70 mg/dL) is consi dered a therapeuticopti on.Test Performed at:[facility] [id number] [place] [address] Harika KEATING MD THYROID-STIMULATION HORMONES(TSH) REFLEX T4 FREE ([id number])2021-05-29 00:00:00 Test Item Value Reference Range Interpretation Comments TSH W/REFLEX TO 3.66 {mIU/L} 0.40-4.50 N Test Perform ed at:[facility] (test code = DI[facility]NOSTICS [id number] 3016-3) [place] [address] Harika KEATING MD PT (PROTHROMBIN TIME) ([id number])2021-05-29 00:00:00 Test Item Value Reference Range Interpretation Comments INR (test code = 1.1 N Reference R aruna 6301-6) 0.9-1.1Moderate -intensity Warfarin Therap y 2.0-3.0Higher-i ntensity Warfarin Therap y 3.0-4.0 PT (test code = 11.0 {sec} 9.0-11.5 N For addition al 5902-2) information, pl ease refer tohttp://educat ion.[employer]/ faq/OSY447 (This link is b eing provided for informational/e ducational purposes only.) Test Performed at:[facility] [id number] [place] [address] JOSE ROBERTO KEATING MD VITAMIN B12 AND FOLATE ([id number])2021-05-29 00:00:00 Test Item Value Reference Range Interpretation Comments VITAMIN B12 (test 520 pg/mL 200-1100 N code = 2132-9) FOLATE, SERUM (test 7.1 ng/mL N Referenc e Range Low: code = 2284-8) <3.4 Borderli ne: 3.4-5.4 Normal: >5.4Te st Performed at:[facility] [id number] [place] [address] Harika KEATING MD CBC WITH DIFFERENTIAL/PLATELET ([id number])2021-05-29 00:00:00 Test Item Value Reference Range Interpretation Comments WHITE BLOOD CELL 10.0 3.8-10.8 N UNITS: Thou sand/uL COUNT (test code = 6690-2) RED BLOOD CELL COUNT 3.96 4.20-5.80 A (test code = 789-8) {Million/uL} HEMOGLOBIN (test 12.4 g/dL 13.2-17.1 A code = 718-7) HEMATOCRIT (test 35.6 % 38.5-50.0 A code = 4544-3) MCV (test code = 89.9 fL 80.0-100.0 N 787-2) MCH (test code = 31.3 pg 27.0-33.0 N 785-6) MPV (test code = 10.9 fL 7.5-12.5 N 776-5) NEUTROPHILS (test 74.6 % 7867-1945 N code = 751-8) ABSOLUTE LYMPHOCYTES 5287 728-3169 N (test code = 731-0) {cells/uL} ABSOLUTE MONOCYTES 1040 200-950 A (test code = 742-7) {cells/uL} ABSOLUTE EOSINOPHILS 60 {cells/uL} 15-500 N (test code = 711-2) MCHC (test code = 34.8 g/dL 32.0-36.0 N 786-4) RDW (test code = 13.7 % 11.0-15.0 N 788-0) PLATELET COUNT (test 85 140-400 A UNITS: Thousand/uL code = 777-3) ABSOLUTE BASOPHILS 40 {cells/uL} 0-200 N (test code = 704-7) LYMPHOCYTES (test 14.0 % N code = 736-9) MONOCYTES (test code 10.4 % N = 5905-5) EOSINOPHILS (test 0.6 % N code = 713-8) BASOPHILS (test code 0.4 % N Test Pe rformed = 706-2) at:[facility] [id number] [place] [address] JOSE ROBERTO KEATING MD COMPREHENSIVE METABOLIC PANEL ([id number])2021-05-29 00:00:00 Test Item Value Reference Range Interpretation Comments GLUCOSE (test code = 123 mg/dL 65-99 A Fasting reference 2345-7) intervalFor joceline eone without known d iabetes, a glucose value between 100 and 125 mg/ dL is consistent withprediabetes and should be confi rmed with afollow-up test. UREA NITROGEN (BUN) 3 mg/dL 7-25 A (test code = UREA NITROGEN (BUN)) CREATININE (test 0.55 mg/dL 0.60-1.35 A code = 2160-0) BUN/CREATININE RATIO 5 6-22 A (test code = 3094-0) eGFR NON-AFR. 123 N UNITS: mL/min/ 1.73m2 [place] (test code = eGFR NON-AFR. [place]) eGFR 143 N UNITS: mL/min/1 .73m2 [place] (test code = eGFR ) SODIUM (test code = 131 mmol/L 135-146 A 2951-2) POTASSIUM (test code 3.8 mmol/L 3.5-5.3 N = 2823-3) CHLORIDE (test code 94 mmol/L 98-110 A = 2075-0) CARBON DIOXIDE (test 26 mmol/L 20-32 N code = CARBON DIOXIDE) CALCIUM (test code = 8.7 mg/dL 8.6-10.3 N 12135-3) PROTEIN, TOTAL (test 8.4 g/dL 6.1-8.1 A code = 2885-2) ALBUMIN (test code = 3.9 g/dL 3.6-5.1 N 1751-7) GLOBULIN (test code 4.5 1.9-3.7 A UNITS: g /dL (calc) = 53484-6) ALBUMIN/GLOBULIN 0.9 1.0-2.5 A RATIO (test code = 1759-0) BILIRUBIN, TOTAL 1.2 mg/dL 0.2-1.2 N (test code = 1975-2) ALKALINE PHOSPHATASE 238 U/L 36-130 A (test code = 6768-6) AST (test code = 160 U/L 10-40 A 1920-8) ALT (test code = 39 U/L 9-46 N Test Perfor med at:[facility] 1742-6) [facility] [id number] [place] [address] R PARKER KEATING MD LIPID PANEL ([id number])2021-05-29 00:00:00 Test Item Value Reference Range Interpretation Comments CHOLESTEROL, TOTAL 145 mg/dL N (test code = 2093-3) HDL CHOLESTEROL (test 33 mg/dL A code = 5-9) TRIGLYCERIDES (test 122 mg/dL N code = 2571-8) CHOL/HDLC RATIO (test 4.4 N code = 9830-1) LDL-CHOLESTEROL (test 90 N UNITS: mg/dL code = 50985-0) (calc)Refere nce range: <100Desirable r aruna <100 mg/dL for primary prevention;<70 mg/dL for patients wi th CHD or diabetic patientswith > or = 2 CHD risk factor s.LDL-C is now calculat ed using the [facility] alculati on, which is a validated novel method providingbetter accuracy than yandel Martin equa tion in theestimation o f LDL-C.Jonas STOVALL et al. ANJEL. 2013;310( 19): 2527-0302(http: //educat ion.[facility].co m/faq/WGI913) NON HDL CHOLESTEROL 112 N UNITS: m g/dL (calc)For (test code = 13042-0) patien ts with diabetes plus 1 major CVD riskfactor, shavon ating to a non-HDL-C goa l of <100 mg/dL(LDL- C of <70 mg/dL) is consi dered a therapeuticopti on.Test Performed at:[facility] [id number] [place] [address] Harika KEATING MD THYROID-STIMULATION HORMONES(TSH) REFLEX T4 FREE ([id number])2021-05-29 00:00:00 Test Item Value Reference Range Interpretation Comments TSH W/REFLEX TO 3.66 {mIU/L} 0.40-4.50 N Test Perform ed at:[facility] FT[facility] (test code = DIAGNOSTICS [id number] 3016-3) [place] [address] Harika KEATING MD PT (PROTHROMBIN TIME) ([id number])2021-05-29 00:00:00 Test Item Value Reference Range Interpretation Comments INR (test code = 1.1 N Reference R aruna 6301-6) 0.9-1.1Moderate -intensity Warfarin Therap y 2.0-3.0Higher-i ntensity Warfarin Therap y 3.0-4.0 PT (test code = 11.0 {sec} 9.0-11.5 N For addition al 5902-2) information, pl ease refer tohttp://educat ion.[employer]/ faq/LXN938 (This link is b ольга provided for informational/e ducational purposes only.) Test Performed at:[facility] [id number] [place] [address] JOSE ROBERTO KEATING MD VITAMIN B12 AND FOLATE ([id number])2021-05-29 00:00:00 Test Item Value Reference Range Interpretation Comments VITAMIN B12 (test 520 pg/mL 200-1100 N code = 2132-9) FOLATE, SERUM (test 7.1 ng/mL N Referenc e Range Low: code = 2284-8) <3.4 Borderl ine: 3.4-5.4 Normal: >5.4Test Performed at:[facility] [id number] [place] [address] Harika KEATING MD CBC WITH DIFFERENTIAL/PLATELET ([id number])2021-05-29 00:00:00 Test Item Value Reference Range Interpretation Comments WHITE BLOOD CELL 10.0 3.8-10.8 N UNITS: Thou sand/uL COUNT (test code = 6690-2) RED BLOOD CELL COUNT 3.96 4.20-5.80 A (test code = 789-8) {Million/uL} HEMOGLOBIN (test 12.4 g/dL 13.2-17.1 A code = 718-7) HEMATOCRIT (test 35.6 % 38.5-50.0 A code = 4544-3) MCV (test code = 89.9 fL 80.0-100.0 N 787-2) MCH (test code = 31.3 pg 27.0-33.0 N 785-6) MCHC (test code = 34.8 g/dL 32.0-36.0 N 786-4) RDW (test code = 13.7 % 11.0-15.0 N 788-0) PLATELET COUNT (test 85 140-400 A UNITS: Thousand/uL code = 777-3) MPV (test code = 10.9 fL 7.5-12.5 N 776-5) ABSOLUTE NEUTROPHILS 7460 9642-4325 N (test code = 751-8) {cells/uL} ABSOLUTE LYMPHOCYTES 9494 127-7667 N (test code = 731-0) {cells/uL} ABSOLUTE MONOCYTES 1040 200-950 A (test code = 742-7) {cells/uL} ABSOLUTE EOSINOPHILS 60 {cells/uL} 15-500 N (test code = 711-2) ABSOLUTE BASOPHILS 40 {cells/uL} 0-200 N (test code = 704-7) NEUTROPHILS (test 74.6 % N code = 770-8) LYMPHOCYTES (test 14.0 % N code = 736-9) MONOCYTES (test code 10.4 % N = 5905-5) EOSINOPHILS (test 0.6 % N code = 713-8) BASOPHILS (test code 0.4 % N Test Pe rformed = 706-2) at:[facility] [id number] [place] [address] JOSE ROBERTO KEATING MD COMPREHENSIVE METABOLIC PANEL ([id number])2021-05-29 00:00:00 Test Item Value Reference Range Interpretation Comments GLUCOSE (test code = 123 mg/dL 65-99 A Fasting reference 2345-7) intervalFor joceline eone without known d iabetes, a glucose value between 100 and 125 mg/ dL is consistent withprediabetes and should be confi rmed with afollow-up test. UREA NITROGEN (BUN) 3 mg/dL 7-25 A (test code = 3094-0) CREATININE (test 0.55 mg/dL 0.60-1.35 A code = 2160-0) eGFR NON-AFR. 123 N UNITS: mL/min/ 1.73m2 [place] (test code = 78709-6) eGFR 143 N UNITS: mL/min/1 .73m2 [place] (test code = 77316-7) BUN/CREATININE RATIO 5 6-22 A (test code = 3097-3) SODIUM (test code = 131 mmol/L 135-146 A 2951-2) POTASSIUM (test code 3.8 mmol/L 3.5-5.3 N = 2823-3) CHLORIDE (test code 94 mmol/L 98-110 A = 5-0) CARBON DIOXIDE (test 26 mmol/L 20-32 N code = 2027-9) CALCIUM (test code = 8.7 mg/dL 8.6-10.3 N 47280-3) PROTEIN, TOTAL (test 8.4 g/dL 6.1-8.1 A code = 2885-2) ALBUMIN (test code = 3.9 g/dL 3.6-5.1 N 1751-7) GLOBULIN (test code 4.5 1.9-3.7 A UNITS: g /dL (calc) = 70346-2) ALBUMIN/GLOBULIN 0.9 1.0-2.5 A RATIO (test code = 1759-0) BILIRUBIN, TOTAL 1.2 mg/dL 0.2-1.2 N (test code = 1974-2) ALKALINE PHOSPHATASE 238 U/L 36-130 A (test code = 6768-6) AST (test code = 160 U/L 10-40 A 1919-8) ALT (test code = 39 U/L 9-46 N Test Perfor med at:[facility] 1741-6) [facility] [id number] [place] [address] R PARKER KEATING MD LIPID PANEL ([id number])2021-05-29 00:00:00 Test Item Value Reference Range Interpretation Comments CHOLESTEROL, TOTAL 145 mg/dL N (test code = 2093-3) HDL CHOLESTEROL (test 33 mg/dL A code = 2084-9) TRIGLYCERIDES (test 122 mg/dL N code = 2571-8) LDL-CHOLESTEROL (test 90 N UNITS: mg/dL code = 74710-1) (calc)Refere nce range: <100Desirable r aruna <100 mg/dL for primary prevention;<70 mg/dL for patients wi th CHD or diabetic patientswith > or = 2 CHD risk factor s.LDL-C is now calculat ed using the [facility] alculati on, which is a validated novel method providingbetter accuracy than yandel hatfielda tion in theestimation o f LDL-C.Jonas STOVALL et al. ANJEL. 2013;310( 19): 5053-4411(http: //educat ion.[facility].co m/faq/BAJ236) CHOL/HDLC RATIO (test 4.4 N code = 9830-1) NON HDL CHOLESTEROL 112 N UNITS: m g/dL (calc)For (test code = 47159-1) patien ts with diabetes plus 1 major CVD riskfactor, shavon ating to a non-HDL-C goa l of <100 mg/dL(LDL- C of <70 mg/dL) is consi dered a therapeuticopti on.Test Performed at:[facility] [id number] [place] [address] Harika KEATING MD THYROID-STIMULATION HORMONES(TSH) REFLEX T4 FREE ([id number])2021-05-29 00:00:00 Test Item Value Reference Range Interpretation Comments TSH W/REFLEX TO 3.66 {mIU/L} 0.40-4.50 N Test Perform ed at:[facility] FT4 (test code = DIAGNOSTICS [id number] 3016-3) [place] [address] Harika KEATING MD PT (PROTHROMBIN TIME) ([id number])2021-05-29 00:00:00 Test Item Value Reference Range Interpretation Comments INR (test code = 1.1 N Reference R aruna 6301-6) 0.9-1.1Moderate -intensity Warfarin Therap y 2.0-3.0Higher-i ntensity Warfarin Therap y 3.0-4.0 PT (test code = 11.0 {sec} 9.0-11.5 N For addition al 5902-2) information, pl ease refer tohttp://educat ion.[employer]/ faq/QXJ042 (This link is b eing provided for informational/e ducational purposes only.) Test Performed at:[facility] [id number] [place] [address] JOSE ROBERTO KEATING MD VITAMIN B12 AND FOLATE ([id number])2021-05-29 00:00:00 Test Item Value Reference Range Interpretation Comments VITAMIN B12 (test 520 pg/mL 200-1100 N code = 2132-9) FOLATE, SERUM (test 7.1 ng/mL N Referenc e Range Low: code = 2284-8) <3.4 Borderli ne: 3.4-5.4 Normal: >5.4Tes t Performed at:[facility] [id number] [place] [address] Harika KEATING MD CBC WITH DIFFERENTIAL/PLATELET ([id number])2021-05-29 00:00:00 Test Item Value Reference Range Interpretation Comments WHITE BLOOD CELL 10.0 3.8-10.8 N UNITS: Thou sand/uL COUNT (test code = 6690-2) RED BLOOD CELL COUNT 3.96 4.20-5.80 A (test code = 789-8) {Million/uL} HEMOGLOBIN (test 12.4 g/dL 13.2-17.1 A code = 718-7) HEMATOCRIT (test 35.6 % 38.5-50.0 A code = 4544-3) MCV (test code = 89.9 fL 80.0-100.0 N 787-2) MCH (test code = 31.3 pg 27.0-33.0 N 785-6) MCHC (test code = 34.8 g/dL 32.0-36.0 N 786-4) RDW (test code = 13.7 % 11.0-15.0 N 788-0) PLATELET COUNT (test 85 140-400 A UNITS: Thousand/uL code = 777-3) MPV (test code = 10.9 fL 7.5-12.5 N 776-5) ABSOLUTE NEUTROPHILS 7460 9202-2622 N (test code = 751-8) {cells/uL} ABSOLUTE LYMPHOCYTES 6235 732-2389 N (test code = 731-0) {cells/uL} ABSOLUTE MONOCYTES 1040 200-950 A (test code = 742-7) {cells/uL} ABSOLUTE EOSINOPHILS 60 {cells/uL} 15-500 N (test code = 711-2) ABSOLUTE BASOPHILS 40 {cells/uL} 0-200 N (test code = 704-7) NEUTROPHILS (test 74.6 % N code = 770-8) LYMPHOCYTES (test 14.0 % N code = 736-9) MONOCYTES (test code 10.4 % N = 5905-5) EOSINOPHILS (test 0.6 % N code = 713-8) BASOPHILS (test code 0.4 % N Test Pe rformed = 706-2) at:[facility] [id number] [place] [address] JOSE ROBERTO KEATING MD COMPREHENSIVE METABOLIC PANEL ([id number])2021-05-29 00:00:00 Test Item Value Reference Range Interpretation Comments GLUCOSE (test code = 123 mg/dL 65-99 A Fasting reference 2345-7) intervalFor joceline eone without known d iabetes, a glucose value between 100 and 125 mg/ dL is consistent withprediabetes and should be confi rmed with afollow-up test. UREA NITROGEN (BUN) 3 mg/dL 7-25 A (test code = 3094-0) CREATININE (test 0.55 mg/dL 0.60-1.35 A code = 2160-0) eGFR NON-AFR. 123 N UNITS: mL/min/ 1.73m2 [place] (test code = 60132-3) eGFR 143 N UNITS: mL/min/1 .73m2 [place] (test code = 40690-8) BUN/CREATININE RATIO 5 6-22 A (test code = 3097-3) SODIUM (test code = 131 mmol/L 135-146 A 2951-2) POTASSIUM (test code 3.8 mmol/L 3.5-5.3 N = 2823-3) CHLORIDE (test code 94 mmol/L 98-110 A = 5-0) CARBON DIOXIDE (test 26 mmol/L 20-32 N code = 2027-9) CALCIUM (test code = 8.7 mg/dL 8.6-10.3 N 40107-0) PROTEIN, TOTAL (test 8.4 g/dL 6.1-8.1 A code = 2885-2) ALBUMIN (test code = 3.9 g/dL 3.6-5.1 N 1751-7) GLOBULIN (test code 4.5 1.9-3.7 A UNITS: g /dL (calc) = 73250-5) ALBUMIN/GLOBULIN 0.9 1.0-2.5 A RATIO (test code = 1759-0) BILIRUBIN, TOTAL 1.2 mg/dL 0.2-1.2 N (test code = 1975-2) ALKALINE PHOSPHATASE 238 U/L 36-130 A (test code = 6768-6) AST (test code = 160 U/L 10-40 A 1920-8) ALT (test code = 39 U/L 9-46 N Test Perfor med at:[facility] 1742-6) [facility] [id number] [place] [address] Harika KEATING MD LIPID PANEL ([id number])2021-05-29 00:00:00 Test Item Value Reference Range Interpretation Comments CHOLESTEROL, TOTAL 145 mg/dL N (test code = 2093-3) HDL CHOLESTEROL (test 33 mg/dL A code = 2085-9) TRIGLYCERIDES (test 122 mg/dL N code = 2571-8) LDL-CHOLESTEROL (test 90 N UNITS: mg/dL code = 39470-1) (calc)Refere nce range: <100Desirable r aruna <100 mg/dL for primary prevention;<70 mg/dL for patients wi th CHD or diabetic patientswith > or = 2 CHD risk factor s.LDL-C is now calculat ed using the [facility] alculati on, which is a validated novel method providingbetter accuracy than yandel Martin equa tion in theestimation o f LDL-C.Jonas SS et al. ANJEL. 2013;310( 19): 3595-0911(http: //educat ion.[facility].co m/faq/SWE415) CHOL/HDLC RATIO (test 4.4 N code = 9830-1) NON HDL CHOLESTEROL 112 N UNITS: m g/dL (calc)For (test code = 93943-4) patien ts with diabetes plus 1 major CVD riskfactor, shavon ating to a non-HDL-C goa l of <100 mg/dL(LDL- C of <70 mg/dL) is consi dered a therapeuticopti on.Test Performed at:[facility] [id number] [place] [address] Harika KEATING MD THYROID-STIMULATION HORMONES(TSH) REFLEX T4 FREE ([id number])2021-05-29 00:00:00 Test Item Value Reference Range Interpretation Comments TSH W/REFLEX TO 3.66 {mIU/L} 0.40-4.50 N Test Perform ed at:[facility] FT4 (test code = DIAGNOSTICS [id number] 3016-3) [place] [address] Harika KEATING MD PT (PROTHROMBIN TIME) ([id number])2021-05-29 00:00:00 Test Item Value Reference Range Interpretation Comments INR (test code = 1.1 N Reference R aruna 6301-6) 0.9-1.1Moderate -intensity Warfarin Therap y 2.0-3.0Higher-i ntensity Warfarin Therap y 3.0-4.0 PT (test code = 11.0 {sec} 9.0-11.5 N For addition al 5902-2) information, pl ease refer tohttp://educat ion.[employer]/ faq/WNC750 (This link is b eing provided for informational/e ducational purposes only.) Test Performed at:[facility] [id number] [place] [address] JOSE ROBERTO KEATING MD VITAMIN B12 AND FOLATE ([id number])2021-05-29 00:00:00 Test Item Value Reference Range Interpretation Comments VITAMIN B12 (test 520 pg/mL 200-1100 N code = 2132-9) FOLATE, SERUM (test 7.1 ng/mL N Referenc e Range Low: code = 2284-8) <3.4 Borderli ne: 3.4-5.4 Normal: >5.4Tes t Performed at:[facility] [id number] [place] [address] KINDRA KEATING MD CBC WITH DIFFERENTIAL/PLATELET ([id number])2021-05-29 00:00:00 Test Item Value Reference Range Interpretation Comments WHITE BLOOD CELL 10.0 3.8-10.8 N UNITS: Thou sand/uL COUNT (test code = 6690-2) RED BLOOD CELL COUNT 3.96 4.20-5.80 A (test code = 789-8) {Million/uL} HEMOGLOBIN (test 12.4 g/dL 13.2-17.1 A code = 718-7) HEMATOCRIT (test 35.6 % 38.5-50.0 A code = 4544-3) MCV (test code = 89.9 fL 80.0-100.0 N 787-2) MCH (test code = 31.3 pg 27.0-33.0 N 785-6) MCHC (test code = 34.8 g/dL 32.0-36.0 N 786-4) RDW (test code = 13.7 % 11.0-15.0 N 788-0) PLATELET COUNT (test 85 140-400 A UNITS: Thousand/uL code = 777-3) MPV (test code = 10.9 fL 7.5-12.5 N 776-5) ABSOLUTE NEUTROPHILS 7460 2152-1829 N (test code = 751-8) {cells/uL} ABSOLUTE LYMPHOCYTES 9472 787-4879 N (test code = 731-0) {cells/uL} ABSOLUTE MONOCYTES 1040 200-950 A (test code = 742-7) {cells/uL} ABSOLUTE EOSINOPHILS 60 {cells/uL} 15-500 N (test code = 711-2) ABSOLUTE BASOPHILS 40 {cells/uL} 0-200 N (test code = 704-7) NEUTROPHILS (test 74.6 % N code = 770-8) LYMPHOCYTES (test 14.0 % N code = 736-9) MONOCYTES (test code 10.4 % N = 5905-5) EOSINOPHILS (test 0.6 % N code = 713-8) BASOPHILS (test code 0.4 % N Test Pe rformed = 706-2) at:[facility] [id number] [place] [address] JOSE ROBERTO KEATING MD COMPREHENSIVE METABOLIC PANEL ([id number])2021-05-29 00:00:00 Test Item Value Reference Range Interpretation Comments GLUCOSE (test code = 123 mg/dL 65-99 A Fasting reference 2345-7) intervalFor joceline eone without known d iabetes, a glucose value between 100 and 125 mg/ dL is consistent withprediabetes and should be confi rmed with afollow-up test. UREA NITROGEN (BUN) 3 mg/dL 7-25 A (test code = 3094-0) CREATININE (test 0.55 mg/dL 0.60-1.35 A code = 2160-0) eGFR NON-AFR. 123 N UNITS: mL/min/ 1.73m2 [place] (test code = 27837-9) eGFR 143 N UNITS: mL/min/1 .73m2 [place] (test code = 47314-1) BUN/CREATININE RATIO 5 6-22 A (test code = 3097-3) SODIUM (test code = 131 mmol/L 135-146 A 2951-2) POTASSIUM (test code 3.8 mmol/L 3.5-5.3 N = 2823-3) CHLORIDE (test code 94 mmol/L 98-110 A = 2074-0) CARBON DIOXIDE (test 26 mmol/L 20-32 N code = 2027-9) CALCIUM (test code = 8.7 mg/dL 8.6-10.3 N 96845-8) PROTEIN, TOTAL (test 8.4 g/dL 6.1-8.1 A code = 2885-2) ALBUMIN (test code = 3.9 g/dL 3.6-5.1 N 1751-7) GLOBULIN (test code 4.5 1.9-3.7 A UNITS: g /dL (calc) = 20246-3) ALBUMIN/GLOBULIN 0.9 1.0-2.5 A RATIO (test code = 1759-0) BILIRUBIN, TOTAL 1.2 mg/dL 0.2-1.2 N (test code = 1974-) ALKALINE PHOSPHATASE 238 U/L 36-130 A (test code = 6768-6) AST (test code = 160 U/L 10-40 A 1919-8) ALT (test code = 39 U/L 9-46 N Test Perfor med at:[facility] 1741-6) [facility] [id number] [place] [address] Harika KEATING MD LIPID PANEL ([id number])2021-05-29 00:00:00 Test Item Value Reference Range Interpretation Comments CHOLESTEROL, TOTAL 145 mg/dL N (test code = 2092-3) HDL CHOLESTEROL (test 33 mg/dL A code = 2084-9) TRIGLYCERIDES (test 122 mg/dL N code = 1-8) LDL-CHOLESTEROL (test 90 N UNITS: mg/dL code = 78090-9) (calc)Refere nce range: <100Desirable r aruna <100 mg/dL for primary prevention;<70 mg/dL for patients wi th CHD or diabetic patientswith > or = 2 CHD risk factor s.LDL-C is now calculat ed using the [facility] alculati on, which is a validated novel method providingbetter accuracy than yandel sow tivik in theestimation o f LDL-C.Jonas STOVALL et al. ANJEL. 2013;310( 19): 4361-6246(http: //educat ion.[employer].[facility].co m/faq/JSG549) CHOL/HDLC RATIO (test 4.4 N code = 9830-1) NON HDL CHOLESTEROL 112 N UNITS: m g/dL (calc)For (test code = 41360-1) patien ts with diabetes plus 1 major CVD riskfactor, shavon ating to a non-HDL-C goa l of <100 mg/dL(LDL- C of <70 mg/dL) is consi dered a therapeuticopti on.Test Performed at:[facility] [id number] [place] [address] Harika KEATING MD THYROID-STIMULATION HORMONES(TSH) REFLEX T4 FREE ([id number])2021-05-29 00:00:00 Test Item Value Reference Range Interpretation Comments TSH W/REFLEX TO 3.66 {mIU/L} 0.40-4.50 N Test Perform ed at:[facility] (test code = [facility] [id number]016-[address]) [place] [address] Harika KEATING MD PT (PROTHROMBIN TIME) ([id number])2021-05-29 00:00:00 Test Item Value Reference Range Interpretation Comments INR (test code = 1.1 N Reference R aruna 6301-6) 0.9-1.1Moderate -intensity Warfarin Therap y 2.0-3.0Higher-i ntensity Warfarin Therap y 3.0-4.0 PT (test code = 11.0 {sec} 9.0-11.5 N For addition al 5902-2) information, pl ease refer tohttp://educat ion.Zazoomd vMobo/ faq/WGE723 (This link is b eing provided for informational/e ducational purposes only.) Test Performed at:[facility] [id number] [place] [address] JOSE ROBERTO KEATING MD VITAMIN B12 AND FOLATE ([id number])2021-05-29 00:00:00 Test Item Value Reference Range Interpretation Comments VITAMIN B12 (test 520 pg/mL 200-1100 N code = 2132-9) FOLATE, SERUM (test 7.1 ng/mL N Referenc e Range Low: code = 2284-8) <3.4 Borderli ne: 3.4-5.4 Normal: >5.4Tes t Performed at:[facility] [id number] [place] [address] Harika KEATING MD CBC WITH DIFFERENTIAL/PLATELET ([id number])2021-05-29 00:00:00 Test Item Value Reference Range Interpretation Comments WHITE BLOOD CELL 10.0 3.8-10.8 N UNITS: Thou sand/uL COUNT (test code = 6690-2) RED BLOOD CELL COUNT 3.96 4.20-5.80 A (test code = 789-8) {Million/uL} HEMOGLOBIN (test 12.4 g/dL 13.2-17.1 A code = 718-7) HEMATOCRIT (test 35.6 % 38.5-50.0 A code = 4544-3) MCV (test code = 89.9 fL 80.0-100.0 N 787-2) MCH (test code = 31.3 pg 27.0-33.0 N 785-6) MCHC (test code = 34.8 g/dL 32.0-36.0 N 786-4) RDW (test code = 13.7 % 11.0-15.0 N 788-0) PLATELET COUNT (test 85 140-400 A UNITS: Thousand/uL code = 777-3) MPV (test code = 10.9 fL 7.5-12.5 N 776-5) ABSOLUTE NEUTROPHILS 7460 2286-8314 N (test code = 751-8) {cells/uL} ABSOLUTE LYMPHOCYTES 9159 344-9181 N (test code = 731-0) {cells/uL} ABSOLUTE MONOCYTES 1040 200-950 A (test code = 742-7) {cells/uL} ABSOLUTE EOSINOPHILS 60 {cells/uL} 15-500 N (test code = 711-2) ABSOLUTE BASOPHILS 40 {cells/uL} 0-200 N (test code = 704-7) NEUTROPHILS (test 74.6 % N code = 770-8) LYMPHOCYTES (test 14.0 % N code = 736-9) MONOCYTES (test code 10.4 % N = 5905-5) EOSINOPHILS (test 0.6 % N code = 713-8) BASOPHILS (test code 0.4 % N Test Pe rformed = 706-2) at:[facility] [id number] [place] [address] JOSE ROBERTO KEATING MD COMPREHENSIVE METABOLIC PANEL ([id number])2021-05-29 00:00:00 Test Item Value Reference Range Interpretation Comments GLUCOSE (test code = 123 mg/dL 65-99 A Fasting reference 2345-7) intervalFor joceline eone without known d iabetes, a glucose value between 100 and 125 mg/ dL is consistent withprediabetes and should be confi rmed with afollow-up test. UREA NITROGEN (BUN) 3 mg/dL 7-25 A (test code = 3094-0) CREATININE (test 0.55 mg/dL 0.60-1.35 A code = 2160-0) eGFR NON-AFR. 123 N UNITS: mL/min/ 1.73m2 [place] (test code = 13439-1) eGFR 143 N UNITS: mL/min/1 .73m2 [place] (test code = 26572-2) BUN/CREATININE RATIO 5 6-22 A (test code = 3097-3) SODIUM (test code = 131 mmol/L 135-146 A 2951-2) POTASSIUM (test code 3.8 mmol/L 3.5-5.3 N = 2823-3) CHLORIDE (test code 94 mmol/L 98-110 A = 2075-0) CARBON DIOXIDE (test 26 mmol/L 20-32 N code = 8-9) CALCIUM (test code = 8.7 mg/dL 8.6-10.3 N 03754-1) PROTEIN, TOTAL (test 8.4 g/dL 6.1-8.1 A code = 2885-2) ALBUMIN (test code = 3.9 g/dL 3.6-5.1 N 1751-7) ALBUMIN/GLOBULIN 0.9 1.0-2.5 A RATIO (test code = 1759-0) BILIRUBIN, TOTAL 1.2 mg/dL 0.2-1.2 N (test code = 1975-2) ALKALINE PHOSPHATASE 238 U/L 36-130 A (test code = 6768-6) AST (test code = 160 U/L 10-40 A 1920-8) GLOBULIN (test code 4.5 1.9-3.7 A UNITS: g /dL (calc) = 76863-9) ALT (test code = 39 U/L 9-46 N Test Perfor med at:[facility] 1741-6) [facility] [id number] [place] [address] R PARKER KEATING MD LIPID PANEL ([id number])2021-05-29 00:00:00 Test Item Value Reference Range Interpretation Comments CHOLESTEROL, TOTAL 145 mg/dL N (test code = 2092-3) HDL CHOLESTEROL (test 33 mg/dL A code = 5-9) TRIGLYCERIDES (test 122 mg/dL N code = 2571-8) LDL-CHOLESTEROL (test 90 N UNITS: mg/dL code = 00170-9) (calc)Refere nce range: <100Desirable r aruna <100 mg/dL for primary prevention;<70 mg/dL for patients wi th CHD or diabetic patientswith > or = 2 CHD risk factor s.LDL-C is now calculat ed using the [facility] alculati on, which is a validated novel method providingbetter accuracy than yandel [place]a tivik in theestimation o f LDL-C.Jonas SS et al. ANJEL. 2013;310( 19): 2059-7507(http: //educat ion.[facility].co m/faq/UWB064) CHOL/HDLC RATIO (test 4.4 N code = 9830-1) NON HDL CHOLESTEROL 112 N UNITS: m g/dL (calc)For (test code = 78399-0) patien ts with diabetes plus 1 major CVD riskfactor, shavon ating to a non-HDL-C goa l of <100 mg/dL(LDL- C of <70 mg/dL) is consi dered a therapeuticopti on.Test Performed at:[facility] [id number] [place] [address] Harika KEATING MD THYROID-STIMULATION HORMONES(TSH) REFLEX T4 FREE ([id number])2021-05-29 00:00:00 Test Item Value Reference Range Interpretation Comments TSH W/REFLEX TO 3.66 {mIU/L} 0.40-4.50 N Test Perform ed at:[facility] FT4 (test code = DIAGNOSTICS [id number] 3016-3) [place] [address] Harika KEATING MD PT (PROTHROMBIN TIME) ([id number])2021-05-29 00:00:00 Test Item Value Reference Range Interpretation Comments INR (test code = 1.1 N Reference R aruna 6301-6) 0.9-1.1Moderate -intensity Warfarin Therap y 2.0-3.0Higher-i ntensity Warfarin Therap y 3.0-4.0 PT (test code = 11.0 {sec} 9.0-11.5 N For addition al 5902-2) information, pl ease refer tohttp://educat ion.[employer]/ faq/APE292 (This link is b eing provided for informational/e ducational purposes only.) Test Performed at:[facility] [id number] [place] [address] JOSE ROBERTO KEATING MD VITAMIN B12 AND FOLATE ([id number])2021-05-29 00:00:00 Test Item Value Reference Range Interpretation Comments VITAMIN B12 (test 520 pg/mL 200-1100 N code = 2132-9) FOLATE, SERUM (test 7.1 ng/mL N Referenc e Range Low: code = 2284-8) <3.4 Borderli ne: 3.4-5.4 Normal: >5.4Tes t Performed at:[facility] [id number] [place] [address] Harika KEATING MD CBC WITH DIFFERENTIAL/PLATELET ([id number])2021-05-29 00:00:00 Test Item Value Reference Range Interpretation Comments WHITE BLOOD CELL 10.0 3.8-10.8 N UNITS: Thou sand/uL COUNT (test code = 6690-2) RED BLOOD CELL COUNT 3.96 4.20-5.80 A (test code = 789-8) {Million/uL} HEMOGLOBIN (test 12.4 g/dL 13.2-17.1 A code = 718-7) HEMATOCRIT (test 35.6 % 38.5-50.0 A code = 4544-3) MCV (test code = 89.9 fL 80.0-100.0 N 787-2) MCH (test code = 31.3 pg 27.0-33.0 N 785-6) MCHC (test code = 34.8 g/dL 32.0-36.0 N 786-4) RDW (test code = 13.7 % 11.0-15.0 N 788-0) PLATELET COUNT (test 85 140-400 A UNITS: Thousand/uL code = 777-3) MPV (test code = 10.9 fL 7.5-12.5 N 776-5) NEUTROPHILS (test 74.6 % 3037-4747 N code = 751-8) ABSOLUTE LYMPHOCYTES 2776 727-7218 N (test code = 731-0) {cells/uL} ABSOLUTE MONOCYTES 1040 200-950 A (test code = 742-7) {cells/uL} ABSOLUTE EOSINOPHILS 60 {cells/uL} 15-500 N (test code = 711-2) ABSOLUTE BASOPHILS 40 {cells/uL} 0-200 N (test code = 704-7) LYMPHOCYTES (test 14.0 % N code = 736-9) MONOCYTES (test code 10.4 % N = 5905-5) EOSINOPHILS (test 0.6 % N code = 713-8) BASOPHILS (test code 0.4 % N Test Pe rformed = 706-2) at:[facility] [id number] [place] [address] JOSE ROBERTO KEATING MD COMPREHENSIVE METABOLIC PANEL ([id number])2021-05-29 00:00:00 Test Item Value Reference Range Interpretation Comments GLUCOSE (test code = 123 mg/dL 65-99 A Fasting reference 2345-7) intervalFor joceline eone without known d iabetes, a glucose value between 100 and 125 mg/ dL is consistent withprediabetes and should be confi rmed with afollow-up test. UREA NITROGEN (BUN) 3 mg/dL 7-25 A (test code = UREA NITROGEN (BUN)) CREATININE (test 0.55 mg/dL 0.60-1.35 A code = 2160-0) eGFR NON-AFR. 123 N UNITS: mL/min/ 1.73m2 [place] (test code = eGFR NON-AFR. [place]) eGFR 143 N UNITS: mL/min/1 .73m2 [place] (test code = eGFR ) BUN/CREATININE RATIO 5 6-22 A (test code = 3094-0) SODIUM (test code = 131 mmol/L 135-146 A 2951-2) POTASSIUM (test code 3.8 mmol/L 3.5-5.3 N = 2823-3) CHLORIDE (test code 94 mmol/L 98-110 A = 2075-0) CARBON DIOXIDE (test 26 mmol/L 20-32 N code = CARBON DIOXIDE) CALCIUM (test code = 8.7 mg/dL 8.6-10.3 N 53060-1) PROTEIN, TOTAL (test 8.4 g/dL 6.1-8.1 A code = 2885-2) ALBUMIN (test code = 3.9 g/dL 3.6-5.1 N 1751-7) GLOBULIN (test code 4.5 1.9-3.7 A UNITS: g /dL (calc) = 95512-9) ALBUMIN/GLOBULIN 0.9 1.0-2.5 A RATIO (test code = 1759-0) BILIRUBIN, TOTAL 1.2 mg/dL 0.2-1.2 N (test code = 1975-2) ALKALINE PHOSPHATASE 238 U/L 36-130 A (test code = 6768-6) AST (test code = 160 U/L 10-40 A 1920-8) ALT (test code = 39 U/L 9-46 N Test Perfor med at:[facility] 1742-6) [facility] [id number] [place] [address] Harika KEATING MD LIPID PANEL ([id number])2021-05-29 00:00:00 Test Item Value Reference Range Interpretation Comments CHOLESTEROL, TOTAL 145 mg/dL N (test code = 2093-3) HDL CHOLESTEROL (test 33 mg/dL A code = 2085-9) TRIGLYCERIDES (test 122 mg/dL N code = 2571-8) LDL-CHOLESTEROL (test 90 N UNITS: mg/dL code = 73365-9) (calc)Refere nce range: <100Desirable r aruna <100 mg/dL for primary prevention;<70 mg/dL for patients wi th CHD or diabetic patientswith > or = 2 CHD risk factor s.LDL-C is now calculat ed using the [facility] alculati on, which is a validated novel method providingbetter accuracy than yandel Martin equa tion in theestimation o f LDL-C.Jonas SS et al. ANJEL. 2013;310( 19): 9507-2132(http: //educat ion.[facility].co m/faq/LLW393) CHOL/HDLC RATIO (test 4.4 N code = 9830-1) NON HDL CHOLESTEROL 112 N UNITS: m g/dL (calc)For (test code = 46732-9) patien ts with diabetes plus 1 major CVD riskfactor, shavon ating to a non-HDL-C goa l of <100 mg/dL(LDL- C of <70 mg/dL) is consi dered a therapeuticopti on.Test Performed at:[facility] [id number] [place] [address] Harika KEATING MD THYROID-STIMULATION HORMONES(TSH) REFLEX T4 FREE ([id number])2021-05-29 00:00:00 Test Item Value Reference Range Interpretation Comments TSH W/REFLEX TO 3.66 {mIU/L} 0.40-4.50 N Test Perform ed at:[facility] (test code = DI[facility]NOSTICS [id number] 3016-3) [place] [address] Harika KEATING MD PT (PROTHROMBIN TIME) ([id number])2021-05-29 00:00:00 Test Item Value Reference Range Interpretation Comments INR (test code = 1.1 N Reference R aruna 6301-6) 0.9-1.1Moderate -intensity Warfarin Therap y 2.0-3.0Higher-i ntensity Warfarin Therap y 3.0-4.0 PT (test code = 11.0 {sec} 9.0-11.5 N For addition al 5902-2) information, pl ease refer tohttp://educat ion.[employer]/ faq/RYZ913 (This link is b eing provided for informational/e ducational purposes only.) Test Performed at:[facility] [id number] [place] [address] JOSE ROBERTO KEATING MD VITAMIN B12 AND FOLATE ([id number])2021-05-29 00:00:00 Test Item Value Reference Range Interpretation Comments VITAMIN B12 (test 520 pg/mL 200-1100 N code = 2132-9) FOLATE, SERUM (test 7.1 ng/mL N Referenc e Range Low: code = 2284-8) <3.4 Borderli ne: 3.4-5.4 Normal: >5.4Tes t Performed at:[facility] [id number] [place] [address] Harika KEATING MD COMPREHENSIVE METABOLIC [id number] 20:14:00 Test Item Value Reference Range Interpretation Comments SODIUM (test code = 130.0 mmol/L 133-144 L NA) POTASSIUM (test code 3.8 mmol/L 3.5-5.1 N = K) CHLORIDE (test code 98 mmol/L 95-105 N = CL) CARBON DIOXIDE (test 22 mmol/L 21-32 N code = CO2) ANION GAP (test code 10.0 GAP calc 4.0-15.0 N = GAP) GLUCOSE (test code = 122 MG/DL 70-110 H GLU) BLOOD UREA NITROGEN 7 MG/DL 7-18 N (test code = BUN) GLOMERULAR 115 estGFR >60 The estimated FILTRATION RATE glomerular (test code = GFR) filtration rate is computed usingpatient ra ce, age, sex, and s baltazar creatinine. If any of theneeded da ta elements are mi ssing the Laboratory can notcompute an estimation of t he glomerular filtration rate .The GFR value units = ml/min/1.73 met er squared. EstimatedGFR va lues above 60 should be interpreted as >60, not anexact number.--- DRUG DOSAGE ALERT -- - Drug dosage adjustments uti lize different calculationpara meter s. CREATININE (test 0.73 MG/DL 0.55-1.30 N Results may be code = CREAT) depressed if p atient is takingN-Acetylc ystei ne (NAC) and Metamizole (Dipyrone). TOTAL PROTEIN (test 8.2 G/DL 6.4-8.2 N code = PROT) ALBUMIN (test code = 3.1 G/DL 3.4-5.0 L ALB) ALBUMIN/GLOBULIN 0.6 RATIO 1.2-2.2 L RATIO (test code = A/G) CALCIUM (test code = 8.3 MG/DL 8.5-10.1 L CA) BILIRUBIN TOTAL 1.32 MG/DL 0.00-1.00 H (test code = BILT) BILIRUBIN DIRECT 0.69 MG/DL 0.00-0.30 H (test code = BILD) BILIRUBIN INDIRECT 0.63 MG/DL 0.2-1.3 N (test code = BILIND) SGOT/AST (test code 99 Unit/L 15-37 H = AST) SGPT/ALT (test code 48 Unit/L 12-78 N = ALT) ALKALINE PHOSPHATASE 152 Unit/L 45-117 H TOTAL (test code = ALKP) INDEX HEMOLYSIS 1 NORMAL <10 1 NORMAL (test code = MG Index/DL HEMINDEX) INDEX ICTERIC (test 1 NORMAL <2 MG 1 NORMAL code = ICTINDEX) Index/DL INDEX LIPEMIA (test 1 NORMAL <50 1 NORMAL code = LIPINDEX) MG Index/DL COMPREHENSIVE METABOLIC [id number] 20:12:00 Test Item Value Reference Range Interpretation Comments SODIUM (test code = 130.0 mmol/L 133-144 L NA) POTASSIUM (test code 3.8 mmol/L 3.5-5.1 N = K) CHLORIDE (test code 98 mmol/L 95-105 N = CL) CARBON DIOXIDE (test 22 mmol/L 21-32 N code = CO2) ANION GAP (test code 10.0 GAP calc 4.0-15.0 N = GAP) GLUCOSE (test code = 122 MG/DL 70-110 H GLU) BLOOD UREA NITROGEN 7 MG/DL 7-18 N (test code = BUN) GLOMERULAR 115 estGFR >60 The estimated FILTRATION RATE glomerular (test code = GFR) filtration rate is computed usingpatient ra ce, age, sex, and s baltazar creatinine. If any of theneeded da ta elements are mi ssing the Laboratory can notcompute an estimation of t he glomerular filtration rate .The GFR value units = ml/min/1.73 met er squared. EstimatedGFR va lues above 60 should be interpreted as >60, not anexact number.--- DRUG DOSAGE ALERT -- - Drug dosage adjustments uti lize different calculationpara meter s. CREATININE (test 0.73 MG/DL 0.55-1.30 N Results may be code = CREAT) depressed if p atient is takingN-Acetylc ystei ne (NAC) and Metamizole (Dipyrone). TOTAL PROTEIN (test G/DL 6.4-8.2 code = PROT) ALBUMIN (test code = 3.1 G/DL 3.4-5.0 L ALB) ALBUMIN/GLOBULIN RATIO 1.2-2.2 RATIO (test code = A/G) CALCIUM (test code = 8.3 MG/DL 8.5-10.1 L CA) BILIRUBIN TOTAL MG/DL 0.00-1.00 (test code = BILT) BILIRUBIN DIRECT 0.69 MG/DL 0.00-0.30 H (test code = BILD) BILIRUBIN INDIRECT MG/DL 0.2-1.3 (test code = BILIND) SGOT/AST (test code 99 Unit/L 15-37 H = AST) SGPT/ALT (test code 48 Unit/L 12-78 N = ALT) ALKALINE PHOSPHATASE Unit/L 45-117 TOTAL (test code = ALKP) INDEX HEMOLYSIS 1 NORMAL <10 1 NORMAL (test code = MG Index/DL HEMINDEX) INDEX ICTERIC (test 1 NORMAL <2 MG 1 NORMAL code = ICTINDEX) Index/DL INDEX LIPEMIA (test 1 NORMAL <50 1 NORMAL code = LIPINDEX) MG Index/DL CBC W/AUTO [id number] 19:53:00 Test Item Value Reference Range Interpretation Comments WHITE BLOOD CELL (test code = 14.5 K/mm3 4.1-12.1 H WBC) RED BLOOD CELL (test code = RBC) 4.40 M/mm3 3.8-5.5 N HEMOGLOBIN (test code = HGB) 13.9 G/DL 10.6-15.8 N HEMATOCRIT (test code = HCT) 42.9 % 31.8-47.4 N MEAN CELL VOLUME (test code = 97.5 fL 80.1-101.1 N MCV) MEAN CELL HGB (test code = MCH) 31.6 pg 25.3-35.3 N MEAN CELL HGB CONCETRATION (test 32.4 G/DL 32.7-35.1 L code = MCHC) RED CELL DISTRIBUTION WIDTH 12.1 % 12.2-16.4 L (test code = RDW) RED CELL DISTRIBUTION WIDTH 43.7 fL 35.1-43.9 N (test code = RDW-SD) PLATELET COUNT (test code = PLT) 178 K/mm3 155-337 N MEAN PLATELET VOLUME (test code 9.7 fL 7.6-10.4 N = MPV) GRANULOCYTE % (test code = GR%) 84.3 % 37.8-82.6 H IMMATURE GRANULOCYTE % (test 0.8 % 0.0-2.0 N code = IG%) LYMPHOCYTE % (test code = LY%) 10.6 % 14.1-45.4 L MONOCYTE % (test code = MO%) 3.8 % 2.5-11.7 N EOSINOPHIL % (test code = EO%) 0.2 % 0.0-6.2 N BASOPHIL % (test code = BA%) 0.3 % 0.0-2.6 N NUCLEATED RBC % (test code = 0.0 /100WBC% 0.0-1.0 N NRBC%) GRANULOCYTE # (test code = GR#) 12.22 k/mm3 2.0-13.7 N IMMATURE GRANULOCYTE # (test 0.11 K/mm3 0.00-0.03 H code = IG#) LYMPHOCYTE # (test code = LY#) 1.54 K/mm3 0.6-3.8 N MONOCYTE # (test code = MO#) 0.55 K/mm3 0.11-0.59 N EOSINOPHIL # (test code = EO#) 0.03 K/mm3 0.0-0.4 N BASOPHIL # (test code = BA#) 0.04 K/mm3 0.0-0.1 N NUCLEATED RBC # (test code = 0.00 K/mm3 0.00-0.05 N NRBC#) AFB CULTURE + [id number] 17:17:00 Test Item Value Reference Range Interpretation Comments CULTURE (BEAKER) (test No acid-fast bacilli code = 1095) isolated in 42 days AFB SMEAR (BEAKER) No acid fast bacilli (test code = 994) seen VIRUS [id number] 12:44:00 Test Item Value Reference Range Interpretation Comments CULTURE (BEAKER) (test code No virus isolated = 1095) This culture screens for the following viruses as appropriate to the specimen submitted: Adenovirus,Cytomegalovirus, Herpes simplex virus, Enterovirus, Respiratory syncytial virus, Varicella-zoster virus, Influenza virus, Parainfluenza viruses. Performing Laboratory: [facility]. [address] [place] [address] Plant Culture Manager: Xander THORNTON CULTURE + [id number] 07:57:00 Test Item Value Reference Range Interpretation Comments CULTURE (BEAKER) (test No fungus isolated in code = 1095) 28 days FUNGUS SMEAR (BEAKER) No fungi seen (test code = 1406) LEGIONELLA [id number] 14:56:00 Test Item Value Reference Range Interpretation Comments CULTURE (BEAKER) No Legionella species (test code = 1095) isolated BRONCHIAL CULTURE + GRAM [id number] 13:37:00 Test Item Value Reference Range Interpretation Comments CULTURE (BEAKER) 1+ Normal respiratory (test code = 1095) melvi present GRAM STAIN RESULT 1+ WBCs (BEAKER) (test code = 1123) GRAM STAIN RESULT No organisms seen (BEAKER) (test code = 24982) [id number] 05:12:00 Test Item Value Reference Range Interpretation Comments PHOSPHORUS (BEAKER) (test code = 4.7 mg/dL 2.5-4.5 H 604) [id number] 05:12:00 Test Item Value Reference Range Interpretation Comments MAGNESIUM (BEAKER) (test code = 2.2 mg/dL 1.5-3.0 627) COMPREHENSIVE METABOLIC [id number] 05:12:00 Test Item Value Reference Range Interpretation Comments TOTAL PROTEIN 6.5 gm/dL 6.0-8.5 (BEAKER) (test code = 770) ALBUMIN (BEAKER) 3.6 g/dL 3.5-5.0 (test code = 1145) ALKALINE PHOSPHATASE 83 U/L 30-115 (BEAKER) (test code = 346) BILIRUBIN TOTAL 0.5 mg/dL 0.1-1.3 (BEAKER) (test code = 377) SODIUM (BEAKER) (test 139 meq/L 135-148 code = 381) POTASSIUM (BEAKER) 4.6 meq/L 3.5-5.5 (test code = 379) CHLORIDE (BEAKER) 106 meq/L 98-106 (test code = 382) CO2 (BEAKER) (test 25 meq/L 20-31 code = 355) BLOOD UREA NITROGEN 9 mg/dL 10-26 L (BEAKER) (test code = 354) CREATININE (BEAKER) 0.83 mg/dL 0.50-1.20 (test code = 358) GLUCOSE RANDOM 120 mg/dL 70-110 H (BEAKER) (test code = 652) CALCIUM (BEAKER) 8.9 mg/dL 8.5-10.5 (test code = 697) AST (SGOT) (BEAKER) 25 U/L 5-40 (test code = 353) ALT (SGPT) (BEAKER) 40 U/L 6-50 (test code = 347) EGFR (BEAKER) (test 101 ESTIMATE D GFR IS code = 1092) mL/min/1.73 sq NOT ACCURA TE m CREATININE CLEARANCE IN PREDICTING GLOMERULAR FILTRATION RATE . ESTIMATED GFR I S NOT APPLICABLE FOR DIALYSIS PATIEN TS. CBC W/PLT COUNT & AUTO [id number] 04:43:00 Test Item Value Reference Range Interpretation Comments WHITE BLOOD CELL COUNT (BEAKER) 11.3 K/ L 4.0-10.0 H (test code = 775) RED BLOOD CELL COUNT (BEAKER) 4.72 M/ L 4.20-5.80 (test code = 761) HEMOGLOBIN (BEAKER) (test code = 15.0 GM/DL 13.0-16.8 410) HEMATOCRIT (BEAKER) (test code = 45.0 % 40.0-50.0 411) MEAN CORPUSCULAR VOLUME (BEAKER) 95.3 fL 82.0-98.0 (test code = 753) MEAN CORPUSCULAR HEMOGLOBIN 31.7 pg 27.0-33.0 (BEAKER) (test code = 751) MEAN CORPUSCULAR HEMOGLOBIN CONC 33.3 GM/DL 32.0-36.0 (BEAKER) (test code = 752) RED CELL DISTRIBUTION WIDTH 13.2 % 12.0-15.0 (BEAKER) (test code = 412) PLATELET COUNT (BEAKER) (test 208 K/CU MM 150-430 code = 756) MEAN PLATELET VOLUME (BEAKER) 9.2 fL 6.5-10.5 (test code = 754) NUCLEATED RED BLOOD CELLS 0 /100 WBC 0-0 (BEAKER) (test code = 413) NEUTROPHILS RELATIVE PERCENT 75 % (BEAKER) (test code = 429) LYMPHOCYTES RELATIVE PERCENT 13 % (BEAKER) (test code = 430) MONOCYTES RELATIVE PERCENT 12 % (BEAKER) (test code = 431) EOSINOPHILS RELATIVE PERCENT 0 % (BEAKER) (test code = 432) BASOPHILS RELATIVE PERCENT 1 % (BEAKER) (test code = 437) NEUTROPHILS ABSOLUTE COUNT 8.40 K/ L 1.80-8.00 H (BEAKER) (test code = 670) LYMPHOCYTES ABSOLUTE COUNT 1.40 K/ L 1.48-4.50 L (BEAKER) (test code = 414) MONOCYTES ABSOLUTE COUNT (BEAKER) 1.30 K/ L 0.00-1.30 (test code = 415) EOSINOPHILS ABSOLUTE COUNT 0.00 K/ L 0.00-0.50 (BEAKER) (test code = 416) BASOPHILS ABSOLUTE COUNT (BEAKER) 0.10 K/ L 0.00-0.20 (test code = 417) SPIN/CONCENTRATION [id number] 14:08:00 Test Item Value Reference Range Interpretation Comments CONCENTRATION CHARGED (BEAKER) (test Done code = 8887) [id number] 05:23:00 Test Item Value Reference Range Interpretation Comments PROCALCITONIN (BEAKER) (test code = < ng/mL <0.05 3036) SEPSIS RISK (ng/mL)Low: 0.05-0.50Intermediate: 0.51-2.00High: >=2.01 [id number] 05:07:00 Test Item Value Reference Range Interpretation Comments PHOSPHORUS (BEAKER) (test code = 4.2 mg/dL 2.5-4.5 604) [id number] 05:07:00 Test Item Value Reference Range Interpretation Comments MAGNESIUM (BEAKER) (test code = 2.3 mg/dL 1.5-3.0 627) COMPREHENSIVE METABOLIC [id number] 05:07:00 Test Item Value Reference Range Interpretation Comments TOTAL PROTEIN 6.7 gm/dL 6.0-8.5 (BEAKER) (test code = 770) ALBUMIN (BEAKER) 3.7 g/dL 3.5-5.0 (test code = 1145) ALKALINE PHOSPHATASE 70 U/L 30-115 (BEAKER) (test code = 346) BILIRUBIN TOTAL 0.6 mg/dL 0.1-1.3 (BEAKER) (test code = 377) SODIUM (BEAKER) (test 138 meq/L 135-148 code = 381) POTASSIUM (BEAKER) 4.5 meq/L 3.5-5.5 (test code = 379) CHLORIDE (BEAKER) 105 meq/L 98-106 (test code = 382) CO2 (BEAKER) (test 24 meq/L 20-31 code = 355) BLOOD UREA NITROGEN 10 mg/dL 10-26 (BEAKER) (test code = 354) CREATININE (BEAKER) 0.85 mg/dL 0.50-1.20 (test code = 358) GLUCOSE RANDOM 167 mg/dL 70-110 H (BEAKER) (test code = 652) CALCIUM (BEAKER) 8.9 mg/dL 8.5-10.5 (test code = 697) AST (SGOT) (BEAKER) 27 U/L 5-40 (test code = 353) ALT (SGPT) (BEAKER) 39 U/L 6-50 (test code = 347) EGFR (BEAKER) (test 98 mL/min/1.73 [facility]INCENT GFR IS code = 1092) sq m NOT ACCURATE CREATININE CLEARANCE IN PREDICTING GLOMERULAR FILTRATION RATE . ESTIMATED GFR I S NOT APPLICABLE FOR DIALYSIS PATIEN TS. CBC W/PLT COUNT & AUTO [id number] 04:41:00 Test Item Value Reference Range Interpretation Comments WHITE BLOOD CELL COUNT (BEAKER) 10.8 K/ L 4.0-10.0 H (test code = 775) RED BLOOD CELL COUNT (BEAKER) 4.55 M/ L 4.20-5.80 (test code = 761) HEMOGLOBIN (BEAKER) (test code = 14.4 GM/DL 13.0-16.8 410) HEMATOCRIT (BEAKER) (test code = 43.8 % 40.0-50.0 411) MEAN CORPUSCULAR VOLUME (BEAKER) 96.2 fL 82.0-98.0 (test code = 753) MEAN CORPUSCULAR HEMOGLOBIN 31.7 pg 27.0-33.0 (BEAKER) (test code = 751) MEAN CORPUSCULAR HEMOGLOBIN CONC 33.0 GM/DL 32.0-36.0 (BEAKER) (test code = 752) RED CELL DISTRIBUTION WIDTH 12.8 % 12.0-15.0 (BEAKER) (test code = 412) PLATELET COUNT (BEAKER) (test 199 K/CU MM 150-430 code = 756) MEAN PLATELET VOLUME (BEAKER) 9.3 fL 6.5-10.5 (test code = 754) NUCLEATED RED BLOOD CELLS 0 /100 WBC 0-0 (BEAKER) (test code = 413) NEUTROPHILS RELATIVE PERCENT 82 % (BEAKER) (test code = 429) LYMPHOCYTES RELATIVE PERCENT 9 % (BEAKER) (test code = 430) MONOCYTES RELATIVE PERCENT 9 % (BEAKER) (test code = 431) EOSINOPHILS RELATIVE PERCENT 0 % (BEAKER) (test code = 432) BASOPHILS RELATIVE PERCENT 1 % (BEAKER) (test code = 437) NEUTROPHILS ABSOLUTE COUNT 8.80 K/ L 1.80-8.00 H (BEAKER) (test code = 670) LYMPHOCYTES ABSOLUTE COUNT 1.00 K/ L 1.48-4.50 L (BEAKER) (test code = 414) MONOCYTES ABSOLUTE COUNT (BEAKER) 0.90 K/ L 0.00-1.30 (test code = 415) EOSINOPHILS ABSOLUTE COUNT 0.00 K/ L 0.00-0.50 (BEAKER) (test code = 416) BASOPHILS ABSOLUTE COUNT (BEAKER) 0.10 K/ L 0.00-0.20 (test code = 417) [id number] 16:44:00Medical Cytology Report Case: [id number] Authorizing Provider: Arslan Saini MD Collected: 2017 1136 Ordering Location: [address] MEDICAL SURGERY Received: 2017 1252 Pathologist: Raheem Perkins DO Specimen: Lung, Left Lower Lobe LEFT LOWER LOBE LUNG, BRONCHIAL WASHING: - NO MALIGNANTCELLS IDENTIFIED [id number] lower lobe lungCollected: 2017 1136Received: 2017 29976 ml bloody fluid received fresh; 4 cytospinsSatisfactorySt[address] [facility], [address] [place] [address], [facility] Department of Pathology, [address] [place] [address], [facility] Department of Pathology, [address] [facility] [place] [address], TSAF FLUID CELL COUNT WITH [id number] 16:38:00 Test Item Value Reference Range Interpretation Comments APPEARANCE FLUID Bloody Clear A (BEAKER) (test code = 510) COLOR FLUID (BEAKER) Red Colorless, Straw A (test code = 511) RBC FLUID (BEAKER) 70765 /uL <=1 H (test code = 513) ADJUSTED WBC FLUID 1328 /cu mm <=5 H (BEAKER) (test code = 1691) LINING CELLS (BEAKER) 133 /cu mm <=1 H (test code = 1590) NEUTROPHILS FLUID 43 % (BEAKER) (test code = 1656) LYMPHS FLUID (BEAKER) 27 % (test code = 488) MONO/MACROPHAGE FLUID 29 % (BEAKER) (test code = 489) EOSINOPHILS FLUID 1 % (BEAKER) (test code = 491) BASO FLUID (BEAKER) 0 % (test code = 492) INTERPRETATION-210 No malignant cells (BEAKER) (test code = identified. 2619) [id number] Raheem Perkins D.O. (BEAKER) (test code = (electronic 2620) signature) CONTAINER BODY FLUID EDTA Tube (BEAKER) (test code = 2873) BODY FLUID CELL COUNT WITH [id number] 16:38:00 Test Item Value Reference Range Interpretation Comments APPEARANCE FLUID Bloody Clear A (BEAKER) (test code = 510) COLOR FLUID (BEAKER) Red Colorless, Straw A (test code = 511) RBC FLUID (BEAKER) 39571 /uL <=1 H (test code = 513) ADJUSTED WBC FLUID 2751 /cu mm <=5 H (BEAKER) (test code = 1691) LINING CELLS (BEAKER) 275 /cu mm <=1 H (test code = 1590) NEUTROPHILS FLUID 28 % (BEAKER) (test code = 1656) LYMPHS FLUID (BEAKER) 37 % (test code = 488) MONO/MACROPHAGE FLUID 35 % (BEAKER) (test code = 489) EOSINOPHILS FLUID 0 % (BEAKER) (test code = 491) BASO FLUID (BEAKER) 0 % (test code = 492) INTERPRETATION-210 No malignant cells (BEAKER) (test code = identified. 2619) [id number] Raheem Perkins D.O. (BEAKER) (test code = (electronic 2620) signature) CONTAINER BODY FLUID EDTA Tube (BEAKER) (test code = 2873) BODY FLUID CELL COUNT WITH [id number] 16:38:00 Test Item Value Reference Range Interpretation Comments APPEARANCE FLUID Bloody Clear A (BEAKER) (test code = 510) COLOR FLUID (BEAKER) Red Colorless, Straw A (test code = 511) RBC FLUID (BEAKER) 29773 /uL <=1 H (test code = 513) ADJUSTED WBC FLUID 2936 /cu mm <=5 H (BEAKER) (test code = 1691) LINING CELLS (BEAKER) 88 /cu mm <=1 H (test code = 1590) NEUTROPHILS FLUID 28 % (BEAKER) (test code = 1656) LYMPHS FLUID (BEAKER) 28 % (test code = 488) MONO/MACROPHAGE FLUID 42 % (BEAKER) (test code = 489) EOSINOPHILS FLUID 2 % (BEAKER) (test code = 491) BASO FLUID (BEAKER) 0 % (test code = 492) INTERPRETATION-210 No malignant cells (BEAKER) (test code = identified. 2619) [id number] Raheem Perkins D.O. (BEAKER) (test code = (electronic 8070) signature) CONTAINER BODY FLUID EDTA Tube (BEAKER) (test code = 0973) CYTOLOGY [id number] 14:00:00 Test Item Value Reference Range Interpretation Comments CYTOLOGY RESULT POINTER See Separate Report (BEAKER) (test code = 4979) HEMOGLOBIN AND [id number] 04:44:00 Test Item Value Reference Range Interpretation Comments HEMOGLOBIN (BEAKER) (test code = 15.2 GM/DL 13.0-16.8 410) HEMATOCRIT (BEAKER) (test code = 45.7 % 40.0-50.0 411) HEMOGLOBIN AND [id number] 14:28:00 Test Item Value Reference Range Interpretation Comments HEMOGLOBIN (BEAKER) (test code = 16.1 GM/DL 13.0-16.8 410) HEMATOCRIT (BEAKER) (test code = 49.2 % 40.0-50.0 411) COMPREHENSIVE METABOLIC [id number] 05:58:00 Test Item Value Reference Range Interpretation Comments TOTAL PROTEIN 7.1 gm/dL 6.0-8.5 (BEAKER) (test code = 770) ALBUMIN (BEAKER) 3.9 g/dL 3.5-5.0 (test code = 1145) ALKALINE PHOSPHATASE 57 U/L 30-115 (BEAKER) (test code = 346) BILIRUBIN TOTAL 0.9 mg/dL 0.1-1.3 (BEAKER) (test code = 377) SODIUM (BEAKER) (test 139 meq/L 135-148 code = 381) POTASSIUM (BEAKER) 4.2 meq/L 3.5-5.5 (test code = 379) CHLORIDE (BEAKER) 104 meq/L 98-106 (test code = 382) CO2 (BEAKER) (test 27 meq/L 20-31 code = 355) BLOOD UREA NITROGEN 8 mg/dL 10-26 L (BEAKER) (test code = 354) CREATININE (BEAKER) 0.84 mg/dL 0.50-1.20 (test code = 358) GLUCOSE RANDOM 121 mg/dL 70-110 H (BEAKER) (test code = 652) CALCIUM (BEAKER) 9.0 mg/dL 8.5-10.5 (test code = 697) AST (SGOT) (BEAKER) 32 U/L 5-40 (test code = 353) ALT (SGPT) (BEAKER) 46 U/L 6-50 (test code = 347) EGFR (BEAKER) (test 100 ESTIMATE D GFR IS code = 1092) mL/min/1.73 sq NOT ACCURA TE m CREATININE CLEARANCE IN PREDICTING GLOMERULAR FILTRATION RATE . ESTIMATED GFR I S NOT APPLICABLE FOR DIALYSIS PATIEN TS. CBC W/PLT COUNT & AUTO [id number] 05:34:00 Test Item Value Reference Range Interpretation Comments WHITE BLOOD CELL COUNT (BEAKER) 9.2 K/ L 4.0-10.0 (test code = 775) RED BLOOD CELL COUNT (BEAKER) 4.76 M/ L 4.20-5.80 (test code = 761) HEMOGLOBIN (BEAKER) (test code = 14.9 GM/DL 13.0-16.8 410) HEMATOCRIT (BEAKER) (test code = 45.2 % 40.0-50.0 411) MEAN CORPUSCULAR VOLUME (BEAKER) 95.0 fL 82.0-98.0 (test code = 753) MEAN CORPUSCULAR HEMOGLOBIN 31.4 pg 27.0-33.0 (BEAKER) (test code = 751) MEAN CORPUSCULAR HEMOGLOBIN CONC 33.0 GM/DL 32.0-36.0 (BEAKER) (test code = 752) RED CELL DISTRIBUTION WIDTH 12.8 % 12.0-15.0 (BEAKER) (test code = 412) PLATELET COUNT (BEAKER) (test 162 K/CU MM 150-430 code = 756) MEAN PLATELET VOLUME (BEAKER) 9.1 fL 6.5-10.5 (test code = 754) NUCLEATED RED BLOOD CELLS 0 /100 WBC 0-0 (BEAKER) (test code = 413) NEUTROPHILS RELATIVE PERCENT 81 % (BEAKER) (test code = 429) LYMPHOCYTES RELATIVE PERCENT 9 % (BEAKER) (test code = 430) MONOCYTES RELATIVE PERCENT 9 % (BEAKER) (test code = 431) EOSINOPHILS RELATIVE PERCENT 0 % (BEAKER) (test code = 432) BASOPHILS RELATIVE PERCENT 0 % (BEAKER) (test code = 437) NEUTROPHILS ABSOLUTE COUNT 7.50 K/ L 1.80-8.00 (BEAKER) (test code = 670) LYMPHOCYTES ABSOLUTE COUNT 0.90 K/ L 1.48-4.50 L (BEAKER) (test code = 414) MONOCYTES ABSOLUTE COUNT (BEAKER) 0.80 K/ L 0.00-1.30 (test code = 415) EOSINOPHILS ABSOLUTE COUNT 0.00 K/ L 0.00-0.50 (BEAKER) (test code = 416) BASOPHILS ABSOLUTE COUNT (BEAKER) 0.00 K/ L 0.00-0.20 (test code = 417) HEMOGLOBIN AND [id number] 05:33:00 Test Item Value Reference Range Interpretation Comments HEMOGLOBIN (BEAKER) (test code = 14.9 GM/DL 13.0-16.8 410) HEMATOCRIT (BEAKER) (test code = 45.2 % 40.0-50.0 411) SPUTUM CULTURE + GRAM [id number] 13:19:00 Test Item Value Reference Range Interpretation Comments CULTURE A 1+ Streptococcu s not (BEAKER) (test group A beta code = 1095) hemolyticIdenti fied by serological kina uping. GRAM STAIN 1+ WBCs RESULT (BEAKER) (test code = 1123) GRAM STAIN 0-5 epithelial RESULT cells (BEAKER) (test code = 118151) GRAM STAIN 1+ gram positive RESULT cocci in pairs (BEAKER) (test code = 862886) GRAM STAIN <1+ gram RESULT negative rods (BEAKER) (test code = 191893) 3+ Normal respiratory melvi presentCOMPREHENSIVE METABOLIC [id number] 04:42:00 Test Item Value Reference Range Interpretation Comments TOTAL PROTEIN 7.1 gm/dL 6.0-8.5 (BEAKER) (test code = 770) ALBUMIN (BEAKER) 3.9 g/dL 3.5-5.0 (test code = 1145) ALKALINE PHOSPHATASE 62 U/L 30-115 (BEAKER) (test code = 346) BILIRUBIN TOTAL 1.2 mg/dL 0.1-1.3 (BEAKER) (test code = 377) SODIUM (BEAKER) (test 138 meq/L 135-148 code = 381) POTASSIUM (BEAKER) 3.5 meq/L 3.5-5.5 (test code = 379) CHLORIDE (BEAKER) 103 meq/L 98-106 (test code = 382) CO2 (BEAKER) (test 25 meq/L 20-31 code = 355) BLOOD UREA NITROGEN 9 mg/dL 10-26 L (BEAKER) (test code = 354) CREATININE (BEAKER) 0.88 mg/dL 0.50-1.20 (test code = 358) GLUCOSE RANDOM 93 mg/dL 70-110 (BEAKER) (test code = 652) CALCIUM (BEAKER) 8.7 mg/dL 8.5-10.5 (test code = 697) AST (SGOT) (BEAKER) 40 U/L 5-40 (test code = 353) ALT (SGPT) (BEAKER) 54 U/L 6-50 H (test code = 347) EGFR (BEAKER) (test 95 mL/min/1.73 ESTIMA VINCENT GFR IS code = 1092) sq m NOT ACCURATE CREATININE CLEARANCE IN PREDICTING GLOMERULAR FILTRATION RATE . ESTIMATED GFR I S NOT APPLICABLE FOR DIALYSIS PATIEN TS. HEMOGLOBIN AND [id number] 04:14:00 Test Item Value Reference Range Interpretation Comments HEMOGLOBIN (BEAKER) (test code = 15.1 GM/DL 13.0-16.8 410) HEMATOCRIT (BEAKER) (test code = 45.8 % 40.0-50.0 411) CBC W/PLT COUNT & AUTO [id number] 04:14:00 Test Item Value Reference Range Interpretation Comments WHITE BLOOD CELL COUNT (BEAKER) 7.8 K/ L 4.0-10.0 (test code = 775) RED BLOOD CELL COUNT (BEAKER) 4.79 M/ L 4.20-5.80 (test code = 761) HEMOGLOBIN (BEAKER) (test code = 15.1 GM/DL 13.0-16.8 410) HEMATOCRIT (BEAKER) (test code = 45.8 % 40.0-50.0 411) MEAN CORPUSCULAR VOLUME (BEAKER) 95.7 fL 82.0-98.0 (test code = 753) MEAN CORPUSCULAR HEMOGLOBIN 31.6 pg 27.0-33.0 (BEAKER) (test code = 751) MEAN CORPUSCULAR HEMOGLOBIN CONC 33.1 GM/DL 32.0-36.0 (BEAKER) (test code = 752) RED CELL DISTRIBUTION WIDTH 12.8 % 12.0-15.0 (BEAKER) (test code = 412) PLATELET COUNT (BEAKER) (test 132 K/CU MM 150-430 L code = 756) MEAN PLATELET VOLUME (BEAKER) 9.3 fL 6.5-10.5 (test code = 754) NUCLEATED RED BLOOD CELLS 0 /100 WBC 0-0 (BEAKER) (test code = 413) NEUTROPHILS RELATIVE PERCENT 70 % (BEAKER) (test code = 429) LYMPHOCYTES RELATIVE PERCENT 16 % (BEAKER) (test code = 430) MONOCYTES RELATIVE PERCENT 10 % (BEAKER) (test code = 431) EOSINOPHILS RELATIVE PERCENT 3 % (BEAKER) (test code = 432) BASOPHILS RELATIVE PERCENT 1 % (BEAKER) (test code = 437) NEUTROPHILS ABSOLUTE COUNT 5.50 K/ L 1.80-8.00 (BEAKER) (test code = 670) LYMPHOCYTES ABSOLUTE COUNT 1.30 K/ L 1.48-4.50 L (BEAKER) (test code = 414) MONOCYTES ABSOLUTE COUNT (BEAKER) 0.80 K/ L 0.00-1.30 (test code = 415) EOSINOPHILS ABSOLUTE COUNT 0.20 K/ L 0.00-0.50 (BEAKER) (test code = 416) BASOPHILS ABSOLUTE COUNT (BEAKER) 0.10 K/ L 0.00-0.20 (test code = 417) HEMOGLOBIN AND [id number] 23:14:00 Test Item Value Reference Range Interpretation Comments HEMOGLOBIN (BEAKER) (test code = 14.7 GM/DL 13.0-16.8 410) HEMATOCRIT (BEAKER) (test code = 44.1 % 40.0-50.0 411) [id number] 04:49:00 Test Item Value Reference Range Interpretation Comments PROCALCITONIN (BEAKER) (test code 0.16 ng/mL <0.05 H = 3036) SEPSIS RISK (ng/mL)Low: 0.05-0.50Intermediate: 0.51-2.00High: >=2.01MAGNESIUM 2017-04-09 04:27:00 Test Item Value Reference Range Interpretation Comments MAGNESIUM (BEAKER) (test code = 1.9 mg/dL 1.5-3.0 627) COMPREHENSIVE METABOLIC [id number] 04:27:00 Test Item Value Reference Range Interpretation Comments TOTAL PROTEIN 6.5 gm/dL 6.0-8.5 (BEAKER) (test code = 770) ALBUMIN (BEAKER) 3.7 g/dL 3.5-5.0 (test code = 1145) ALKALINE PHOSPHATASE 56 U/L 30-115 (BEAKER) (test code = 346) BILIRUBIN TOTAL 1.2 mg/dL 0.1-1.3 (BEAKER) (test code = 377) SODIUM (BEAKER) (test 136 meq/L 135-148 code = 381) POTASSIUM (BEAKER) 3.9 meq/L 3.5-5.5 (test code = 379) CHLORIDE (BEAKER) 100 meq/L 98-106 (test code = 382) CO2 (BEAKER) (test 27 meq/L 20-31 code = 355) BLOOD UREA NITROGEN 8 mg/dL 10-26 L (BEAKER) (test code = 354) CREATININE (BEAKER) 0.79 mg/dL 0.50-1.20 (test code = 358) GLUCOSE RANDOM 134 mg/dL 70-110 H (BEAKER) (test code = 652) CALCIUM (BEAKER) 8.4 mg/dL 8.5-10.5 L (test code = 697) AST (SGOT) (BEAKER) 57 U/L 5-40 H (test code = 353) ALT (SGPT) (BEAKER) 66 U/L 6-50 H (test code = 347) EGFR (BEAKER) (test 107 ESTIMATE D GFR IS code = 1092) mL/min/1.73 sq NOT ACCURA TE m CREATININE CLEARANCE IN PREDICTING GLOMERULAR FILTRATION RATE . ESTIMATED GFR I S NOT APPLICABLE FOR DIALYSIS PATIEN TS. PROTHROMBIN [id number] 04:26:00 Test Item Value Reference Range Interpretation Comments PROTIME (BEAKER) (test code = 16.7 seconds 11.8-14.4 H 759) INR (BEAKER) (test code = 370) 1.4 1.2-1.5 RECOMMENDED COUMADIN/WARFARIN INR THERAPY RANGESSTANDARD DOSE: 2.0 - 3.0 Includes: PROPHYLAXIS for venous thrombosis, systemic embolization; TREATMENT for venous thrombosis and/or pulmonary embolus.HIGH RISK: Target INR is 2.5-3.5 for patients with mechanical heart valves.CBC W/PLT COUNT & AUTO [id number] 04:05:00 Test Item Value Reference Range Interpretation Comments WHITE BLOOD CELL COUNT (BEAKER) 10.1 K/ L 4.0-10.0 H (test code = 775) RED BLOOD CELL COUNT (BEAKER) 4.66 M/ L 4.20-5.80 (test code = 761) HEMOGLOBIN (BEAKER) (test code = 14.5 GM/DL 13.0-16.8 410) HEMATOCRIT (BEAKER) (test code = 44.2 % 40.0-50.0 411) MEAN CORPUSCULAR VOLUME (BEAKER) 94.9 fL 82.0-98.0 (test code = 753) MEAN CORPUSCULAR HEMOGLOBIN 31.2 pg 27.0-33.0 (BEAKER) (test code = 751) MEAN CORPUSCULAR HEMOGLOBIN CONC 32.9 GM/DL 32.0-36.0 (BEAKER) (test code = 752) RED CELL DISTRIBUTION WIDTH 13.0 % 12.0-15.0 (BEAKER) (test code = 412) PLATELET COUNT (BEAKER) (test 152 K/CU MM 150-430 code = 756) MEAN PLATELET VOLUME (BEAKER) 9.4 fL 6.5-10.5 (test code = 754) NUCLEATED RED BLOOD CELLS 0 /100 WBC 0-0 (BEAKER) (test code = 413) NEUTROPHILS RELATIVE PERCENT 77 % (BEAKER) (test code = 429) LYMPHOCYTES RELATIVE PERCENT 10 % (BEAKER) (test code = 430) MONOCYTES RELATIVE PERCENT 11 % (BEAKER) (test code = 431) EOSINOPHILS RELATIVE PERCENT 1 % (BEAKER) (test code = 432) BASOPHILS RELATIVE PERCENT 2 % (BEAKER) (test code = 437) NEUTROPHILS ABSOLUTE COUNT 7.80 K/ L 1.80-8.00 (BEAKER) (test code = 670) LYMPHOCYTES ABSOLUTE COUNT 1.00 K/ L 1.48-4.50 L (BEAKER) (test code = 414) MONOCYTES ABSOLUTE COUNT (BEAKER) 1.10 K/ L 0.00-1.30 (test code = 415) EOSINOPHILS ABSOLUTE COUNT 0.10 K/ L 0.00-0.50 (BEAKER) (test code = 416) BASOPHILS ABSOLUTE COUNT (BEAKER) 0.20 K/ L 0.00-0.20 (test code = 417) CREATINE KINASE (CK), TOTAL AND [id number] 19:09:00 Test Item Value Reference Range Interpretation Comments CREATINE KINASE TOTAL (BEAKER) 526 U/L 30-300 H (test code = 380) CREATINE KINASE-MB (BEAKER) (test 3.0 ng/mL 0.0-4.9 code = 750) CREATINE KINASE-MB INDEX (BEAKER) 0.6 % (test code = 395) CK-MB Reference Range:<5 Normal5-10 Borderline>10 AbnormalTROPONIN I 2017-04-08 19:07:00 Test Item Value Reference Range Interpretation Comments TROPONIN I (BEAKER) (test code = 397) < ng/mL 0.00-0.15 Troponin I (TnI) levels [...] neurological disease, and persistent tachyarrhythmia.RAPID DRUG SCREEN, [id number] 18:34:00 Test Item Value Reference Range Interpretation Comments BARBITURATE URINE (BEAKER) (test Negative Negative code = 725) BENZODIAZEPINE SCREEN URINE (BEAKER) Negative Negative (test code = 726) COCAINE (METAB.) SCREEN (BEAKER) Negative Negative (test code = 1164) METHADONE SCREEN (BEAKER) (test code Negative Negative = 1436) OPIATE SCREEN URINE (BEAKER) (test Negative Negative code = 734) CANNABINOID SCREEN URINE (BEAKER) Negative Negative (test code = 727) AMPH/METHAMPH SCREEN (BEAKER) (test Negative Negative code = 1438) PHENCYCLIDINE SCREEN URINE (BEAKER) Negative Negative (test code = 608) DRUG CUTOFF CONC.Cocaine 300 ng/mL Cannabinoid 50 ng/mLBenzodiazepine 200 ng/mLBarbiturate 200 ng/mLPhencyclidine 25 ng/mLOpiate 300 ng/mLMethadone 300 ng/mLAmphetamine/ 1000 ng/mL [id number] 18:34:00 Test Item Value Reference Range Interpretation Comments ETHANOL (BEAKER) (test code = 400) < mg/dL <=10 CBC W/PLT COUNT & AUTO [id number] 18:19:00 Test Item Value Reference Range Interpretation Comments WHITE BLOOD CELL COUNT (BEAKER) 9.3 K/ L 4.0-10.0 (test code = 775) RED BLOOD CELL COUNT (BEAKER) 5.03 M/ L 4.20-5.80 (test code = 761) HEMOGLOBIN (BEAKER) (test code = 15.8 GM/DL 13.0-16.8 410) HEMATOCRIT (BEAKER) (test code = 47.5 % 40.0-50.0 411) MEAN CORPUSCULAR VOLUME (BEAKER) 94.6 fL 82.0-98.0 (test code = 753) MEAN CORPUSCULAR HEMOGLOBIN 31.4 pg 27.0-33.0 (BEAKER) (test code = 751) MEAN CORPUSCULAR HEMOGLOBIN CONC 33.2 GM/DL 32.0-36.0 (BEAKER) (test code = 752) RED CELL DISTRIBUTION WIDTH 13.3 % 12.0-15.0 (BEAKER) (test code = 412) PLATELET COUNT (BEAKER) (test 153 K/CU MM 150-430 code = 756) MEAN PLATELET VOLUME (BEAKER) 9.1 fL 6.5-10.5 (test code = 754) NUCLEATED RED BLOOD CELLS 0 /100 WBC 0-0 (BEAKER) (test code = 413) NEUTROPHILS RELATIVE PERCENT 81 % (BEAKER) (test code = 429) LYMPHOCYTES RELATIVE PERCENT 9 % (BEAKER) (test code = 430) MONOCYTES RELATIVE PERCENT 10 % (BEAKER) (test code = 431) EOSINOPHILS RELATIVE PERCENT 0 % (BEAKER) (test code = 432) BASOPHILS RELATIVE PERCENT 0 % (BEAKER) (test code = 437) NEUTROPHILS ABSOLUTE COUNT 7.50 K/ L 1.80-8.00 (BEAKER) (test code = 670) LYMPHOCYTES ABSOLUTE COUNT 0.80 K/ L 1.48-4.50 L (BEAKER) (test code = 414) MONOCYTES ABSOLUTE COUNT (BEAKER) 0.90 K/ L 0.00-1.30 (test code = 415) EOSINOPHILS ABSOLUTE COUNT 0.00 K/ L 0.00-0.50 (BEAKER) (test code = 416) BASOPHILS ABSOLUTE COUNT (BEAKER) 0.00 K/ L 0.00-0.20 (test code = 417) HEMOGLOBIN AND [id number] 18:14:00 Test Item Value Reference Range Interpretation Comments HEMOGLOBIN (BEAKER) (test code = 15.8 GM/DL 13.0-16.8 410) HEMATOCRIT (BEAKER) (test code = 47.5 % 40.0-50.0 411) OCCULT BLOOD, [id number] 13:26:00 Test Item Value Reference Range Interpretation Comments FECAL OCCULT BLOOD (BEAKER) (test Negative Negative code = 618) CREATINE KINASE (CK), TOTAL AND [id number] 12:33:00 Test Item Value Reference Range Interpretation Comments CREATINE KINASE TOTAL (BEAKER) 809 U/L 30-300 H (test code = 380) CREATINE KINASE-MB (BEAKER) (test 5.0 ng/mL 0.0-4.9 H code = 750) CREATINE KINASE-MB INDEX (BEAKER) 0.6 % (test code = 395) CK-MB Reference Range:<5 Normal5-10 Borderline>10 AbnormalTROPONIN I 2017-04-08 12:31:00 Test Item Value Reference Range Interpretation Comments TROPONIN I (BEAKER) (test code = 397) < ng/mL 0.00-0.15 Troponin I (TnI) levels [...] acute neurological disease, and persistent tachyarrhythmia.COMPREHENSIVE METABOLIC [id number] 12:24:00 Test Item Value Reference Range Interpretation Comments TOTAL PROTEIN 7.9 gm/dL 6.0-8.5 (BEAKER) (test code = 770) ALBUMIN (BEAKER) 4.5 g/dL 3.5-5.0 (test code = 1145) ALKALINE PHOSPHATASE 84 U/L 30-115 (BEAKER) (test code = 346) BILIRUBIN TOTAL 0.7 mg/dL 0.1-1.3 (BEAKER) (test code = 377) SODIUM (BEAKER) 137 meq/L 135-148 (test code = 381) POTASSIUM (BEAKER) 3.8 meq/L 3.5-5.5 (test code = 379) CHLORIDE (BEAKER) 102 meq/L 98-106 (test code = 382) CO2 (BEAKER) (test 23 meq/L 20-31 code = 355) BLOOD UREA NITROGEN 5 mg/dL 10-26 L (BEAKER) (test code = 354) CREATININE (BEAKER) 0.80 mg/dL 0.50-1.20 (test code = 358) GLUCOSE RANDOM 113 mg/dL 70-110 H (BEAKER) (test code = 652) CALCIUM (BEAKER) 8.9 mg/dL 8.5-10.5 (test code = 697) AST (SGOT) (BEAKER) 111 U/L 5-40 H (test code = 353) ALT (SGPT) (BEAKER) 102 U/L 6-50 H (test code = 347) EGFR (BEAKER) (test mL/min/1.73 INSUFFIC IENT code = 1092) sq m CLINICAL DATA T O CALCULATE ESTIM ATED GFR. [id number] 12:12:00 Test Item Value Reference Range Interpretation Comments PROTIME (BEAKER) (test code = 12.3 seconds 11.8-14.4 759) INR (BEAKER) (test code = 370) 0.9 1.2-1.5 L PARTIAL THROMBOPLASTIN TIME 28.9 seconds 23.2-36.1 (BEAKER) (test code = 760) RECOMMENDED COUMADIN/WARFARIN INR THERAPY RANGESSTANDARD DOSE: 2.0 - 3.0 Includes: PROPHYLAXIS for venous thrombosis, systemic embolization; TREATMENT for venous thrombosis and/or pulmonary embolus.HIGH RISK: Target INR is 2.5-3.5 for patients with mechanical heart valves.CBC W/PLT COUNT & AUTO [id number] 11:59:00 Test Item Value Reference Range Interpretation Comments WHITE BLOOD CELL COUNT (BEAKER) 8.1 K/ L 4.0-10.0 (test code = 775) RED BLOOD CELL COUNT (BEAKER) 5.06 M/ L 4.20-5.80 (test code = 761) HEMOGLOBIN (BEAKER) (test code = 16.1 GM/DL 13.0-16.8 410) HEMATOCRIT (BEAKER) (test code = 48.0 % 40.0-50.0 411) MEAN CORPUSCULAR VOLUME (BEAKER) 94.8 fL 82.0-98.0 (test code = 753) MEAN CORPUSCULAR HEMOGLOBIN 31.8 pg 27.0-33.0 (BEAKER) (test code = 751) MEAN CORPUSCULAR HEMOGLOBIN CONC 33.5 GM/DL 32.0-36.0 (BEAKER) (test code = 752) RED CELL DISTRIBUTION WIDTH 13.3 % 12.0-15.0 (BEAKER) (test code = 412) PLATELET COUNT (BEAKER) (test 150 K/CU MM 150-430 code = 756) MEAN PLATELET VOLUME (BEAKER) 9.1 fL 6.5-10.5 (test code = 754) NUCLEATED RED BLOOD CELLS 0 /100 WBC 0-0 (BEAKER) (test code = 413) NEUTROPHILS RELATIVE PERCENT 66 % (BEAKER) (test code = 429) LYMPHOCYTES RELATIVE PERCENT 19 % (BEAKER) (test code = 430) MONOCYTES RELATIVE PERCENT 13 % (BEAKER) (test code = 431) EOSINOPHILS RELATIVE PERCENT 2 % (BEAKER) (test code = 432) BASOPHILS RELATIVE PERCENT 0 % (BEAKER) (test code = 437) NEUTROPHILS ABSOLUTE COUNT 5.30 K/ L 1.80-8.00 (BEAKER) (test code = 670) LYMPHOCYTES ABSOLUTE COUNT 1.60 K/ L 1.48-4.50 (BEAKER) (test code = 414) MONOCYTES ABSOLUTE COUNT (BEAKER) 1.10 K/ L 0.00-1.30 (test code = 415) EOSINOPHILS ABSOLUTE COUNT 0.10 K/ L 0.00-0.50 (BEAKER) (test code = 416) BASOPHILS ABSOLUTE COUNT (BEAKER) 0.00 K/ L 0.00-0.20 (test code = 417)
--- NOTE | 2022-10-08 15:06 | RAD REPORT ---
EXAM DESCRIPTION: CTAbdomen Pelvis Wo Contrast - 10/08/2022 2:53 pm CLINICAL HISTORY: flank pain COMPARISON: No comparisons TECHNIQUE: CT of the abdomen and pelvis was performed. All CT scans are performed using dose optimization technique as appropriate and may include automated exposure control or mA/KV adjustment according to patient size. FINDINGS: Lower chest: No acute abnormality. Liver: Cirrhotic liver morphology. Biliary: No biliary ductal dilatation. Stomach: No significant focal abnormality. Duodenum: No significant focal abnormality. Pancreas: No significant abnormality. Spleen: No significant abnormality. Adrenal: No suspicious lesions. Kidney/ureter: No hydronephrosis. No renal calculi. Retroperitoneum: No retroperitoneal adenopathy. Vascular: No aneurysm. Bowel: No significant focal abnormality. Peritoneum: No ascites or free air. Fat containing umbilical hernia. Bladder: Circumferential bladder wall thickening. Reproductive: No adnexal masses. Bones: No acute fracture. Other: n/a IMPRESSION: No acute intra-abdominal or pelvic finding. Normal appendix. No urinary tract calculi. N onspecific circumferential bladder wall thickening.
[2022-10-08 15:13] LABS: Urine Blood 3+ (Negative); Urine Glucose Negative (Negative); Urine Protein 2+ (Negative); Urine Specific Gravity 1.025 (1.005-1.030)
[2022-10-08 15:27] LABS: Hematocrit 36.9 % (39.6-49.0); Lymphocytes % 15.3 % (15.3-44.8); MCV 87.9 fL (80-100); MPV 7.9 fL (7.6-11.3)
[2022-10-08 15:42] LABS: Albumin 2.9 g/dL (3.4-5.0); Bilirubin Total 0.7 mg/dL (0.2-1.0); Potassium 3.8 mmol/L (3.5-5.1); Protein, Total 7.8 g/dL (6.4-8.2)
--- NOTE | 2022-10-08 15:54 | EDPHYS ---
Physician Documentation [facility] Name: Virgil Ryan Age: 47 yrs Sex: Male : 1975 Arrival Date: 10/08/2022 Time: 13:30 Bed 11 Private MD: FROYLAN Physician Arthur Ty HPI: 10/08 15:51 This 47 yrs old Male presents to ER via Ambulatory with complaints of flank jl9 pain, lower abdominal pain. History of alcoholism. . 15:51 The patient complains of pain in the left low back and right low back. The pain jl9 radiates. Onset: The symptoms/episode began/occurred 2 day(s) ago. Modifying factors: The symptoms are alleviated by nothing. the symptoms are aggravated by nothing. Associated signs and symptoms: The patient has no apparent associated signs or symptoms. Severity of pain: in the emergency department the pain is a 3 / 10. Historical: - Allergies: 14:35 No Known Allergies; vg1 - Home Meds: 14:35 Lisinopril Oral [Active]; Ativan Oral [Active]; vg1 - PMHx: 14:35 Hypertensive disorder; Anxiety; vg1 - PSHx: 14:35 None; vg1 - Immunization history:: Client reports having NOT received the Covid vaccine. - Social history:: Smoking status: Patient reports the use of cigarette tobacco products, denies chronic smoking, but will smoke occasionally. ROS: 15:52 Constitutional: Negative for fever, chills, and weight loss, Eyes: Negative for injury, jl9 pain, redness, and discharge, ENT: Negative for injury, pain, and discharge, Neck: Negative for injury, pain, and swelling, Cardiovascular: Negative for chest pain, palpitations, and edema, Respiratory: Negative for shortness of breath, cough, wheezing, and pleuritic chest pain. 15:52 : Negative for injury, bleeding, discharge, and swelling, MS/Extremity: Negative for injury and deformity, Skin: Negative for injury, rash, and discoloration, Neuro: Negative for headache, weakness, numbness, tingling, and seizure, Psych: Negative for depression, anxiety, suicide ideation, homicidal ideation, and hallucinations, Allergy/Immunology: Negative for hives, rash, and allergies, Endocrine: Negative for neck swelling, polydipsia, polyuria, polyphagia, and marked weight changes, Hematologic/Lymphatic: Negative for swollen nodes, abnormal bleeding, and unusual bruising. 15:52 Abdomen/GI: Positive for abdominal pain. 15:52 Back: Positive for flank pain. Exam: 15:52 Constitutional: This is a well developed, well nourished patient who is awake, alert, jl9 and in no acute distress. Head/Face: Normocephalic, atraumatic. Eyes: Pupils equal round and reactive to light, extra-ocular motions intact. Lids and lashes normal. Conjunctiva and sclera are non-icteric and not injected. Cornea within normal limits. Periorbital areas with no swelling, redness, or edema. ENT: Mucous membranes moist. Neck: Trachea midline, no thyromegaly or masses palpated, and no cervical lymphadenopathy. Supple, full range of motion without nuchal rigidity, or vertebral point tenderness. No Meningismus. Chest/axilla: Normal chest wall appearance and motion. Nontender with no deformity. No lesions are appreciated. Cardiovascular: Regular rate and rhythm with a normal S1 and S2. No gallops, murmurs, or rubs. Normal PMI, no JVD. No pulse deficits. Respiratory: Lungs have equal breath sounds bilaterally, clear to auscultation and percussion. No rales, rhonchi or wheezes noted. No increased work of breathing, no retractions or nasal flaring. Abdomen/GI: Soft, non-tender, with normal bowel sounds. No distension or tympany. No guarding or rebound. No evidence of tenderness throughout. 15:52 Skin: Warm, dry with normal turgor. Normal color with no rashes, no lesions, and no evidence of cellulitis. MS/ Extremity: Pulses equal, no cyanosis. Neurovascular intact. Full, normal range of motion. Neuro: Awake and alert, GCS 15, oriented to person, place, time, and situation. Cranial nerves II-XII grossly intact. Motor strength 5/5 in all extremities. Sensory grossly intact. Cerebellar exam normal. Normal gait. Psych: Awake, alert, with orientation to person, place and time. Behavior, mood, and affect are within normal limits. 15:52 Back: pain, that is very mild, ROM is normal, normal spinal alignment noted, CVA tenderness, is absent. Vital Signs: 14:29 Resp 17; Weight 89.36 kg; Height 5 ft. 10 in. (177.80 cm); Pain 9/10; vg1 14:35 BP 148 / 74; Pulse 89; Resp 16; Temp 99.3; Pulse Ox 100% ; vg1 15:56 BP 158 / 82; Pulse 77; Resp 18; Pulse Ox 100% on R/A; tm3 14:29 Body Mass Index 28.27 (89.36 kg, 177.80 cm) vg1 MDM: 14:54 Patient medically screened. jl9 15:53 Differential diagnosis: nephrolithiasis, pyelonephritis, UTI. Data reviewed: vital jl9 signs, nurses notes. Counseling: I had a detailed discussion with the patient and/or guardian regarding: the historical points, exam findings, and any diagnostic results supporting the discharge/admit diagnosis, lab results, radiology results, the need for outpatient follow up, to return to the emergency department if symptoms worsen or persist or if there are any questions or concerns that arise at home. Response to treatment: the patient's symptoms have markedly improved after treatment. 10/08 14:41 Order name: CBC with Diff; Complete Time: 15:44 [facility] 10/08 14:41 Order name: CMP; Complete Time: 15:44 [facility] 10/08 14:41 Order name: Lipase; Complete Time: 15:44 [facility] 10/08 14:41 Order name: CT Abd/Pelvis - Without Contrast; Complete Time: 15:07 [facility] 10/08 15:14 Order name: Urine Dipstick-Ancillary; Complete Time: 15:44 [facility] 10/08 14:37 Order name: Urine Dipstick-Ancillary (obtain specimen); Complete Time: 15:47 [facility] 10/08 14:41 Order name: IV Saline Lock; Complete Time: 15:16 [facility] 10/08 14:41 Order name: Labs collected and sent; Complete Time: 15:16 jl9 Administered Medications: 16:06 Drug: HYDROcodone-acetaminophen 5 mg-325 mg 1 tabs Route: PO; ap3 16:06 Follow up: Response: No adverse reaction ap3 Disposition Summary: 10/08/22 15:54 Discharge Ordered Location: Home jl9 Condition: Stable jl9 Diagnosis - Abdominal pain, unspecified jl9 Followup: jl9 - With: Private Physician - When: 1 - 2 days - Reason: Recheck today's complaints, Continuance of care, Re-evaluation by your physician Discharge Instructions: - Discharge Summary Sheet jl9 - Flank Pain, Adult jl9 Forms: - Medication Reconciliation Form jl9 - Thank You Letter jl9 - Antibiotic Education jl9 - Prescription Opioid Use jl9 Prescriptions: - Bactrim DS 800-160 mg Oral Tablet - take 1 tablet by ORAL route every 12 hours for 10 days; 20 tablet; Refills: 0, jl9 Product Selection Permitted Addendum: 10/10/2022 13:35 Co-signature as Attending Physician, Arthur Ty MD I agree with the assessment and c whitt plan of care. Signatures: Dispatcher [employer] Arthur Brandt MD MD cha Prokisch, Amanda RN RN ap3 Coty Munguia RN RN vg1 Josias Lewis jl9
--- NOTE | 2022-10-08 15:54 | ER ---
Nurse's Notes [facility] Name: Vigril Ryan Age: 47 yrs Sex: Male : 1975 Arrival Date: 10/08/2022 Time: 13:30 Bed 11 Private MD: Diagnosis: Abdominal pain, unspecified Presentation: 10/08 14:29 Chief complaint: Patient states: RAJANI flank pain that radiates to RLQ and LLQ, states vg1 urine is kenneth color and burning upon urination, pain began two days ago. Denies NVD. Pt is from [facility] and is advised "not to take any benzodiazepines, opioids, barbiturates, and/or any other substances w/mood altering effect or abuse potential unless there is no alternative abailable.". Coronavirus screen: Vaccine status: Patient reports being unvaccinated. Ebola Screen: Patient negative for fever greater than or equal to 101.5 degrees Fahrenheit, and additional compatible Ebola Virus Disease symptoms. Initial Sepsis Screen: Does the patient meet any 2 criteria?. Onset of symptoms was October 06, 2022. 14:29 Method Of Arrival: Ambulatory 1 14:29 Acuity: LACY 3 vg1 14:35 Initial Sepsis Screen: Does the patient meet any 2 criteria? No. Patient's initial vg1 sepsis screen is negative. Does the patient have a suspected source of infection? No. Patient's initial sepsis screen is negative. 15:28 Risk Assessment: Do you want to hurt yourself or someone else? Patient reports no ap3 desire to harm self or others. Triage Assessment: 14:35 General: Appears uncomfortable, Behavior is cooperative. Pain: Complains of pain in vg1 back, posterior aspect of left lateral abdomen, posterior aspect of right lateral abdomen, right lower quadrant and left lower quadrant Pain currently is 9 out of 10 on a pain scale. Pain began 2-3 days ago. GI: Abdomen is round Patient currently denies diarrhea, nausea, vomiting. : Reports burning with urination, pain in right in left flank(s), lower quadrant(s). Historical: - Allergies: 14:35 No Known Allergies; vg1 - Home Meds: 14:35 Lisinopril Oral [Active]; Ativan Oral [Active]; vg1 - PMHx: 14:35 Hypertensive disorder; Anxiety; vg1 - PSHx: 14:35 None; vg1 - Immunization history:: Client reports having NOT received the Covid vaccine. - Social history:: Smoking status: Patient reports the use of cigarette tobacco products, denies chronic smoking, but will smoke occasionally. Screenin:28 Abuse screen: Denies threats or abuse. Nutritional screening: No deficits noted. ap3 Tuberculosis screening: No symptoms or risk factors identified. Fall Risk None identified. Assessment: 15:27 General: Appears uncomfortable. Pain: Complains of pain in left lower quadrant and ap3 right lower quadrant and posterior aspect of right lateral abdomen and posterior aspect of left lateral abdomen Pain began gradually, 2-3 days ago. Neuro: Level of Consciousness is awake, alert, obeys commands, Oriented to person, place, time, situation, Speech is normal. Cardiovascular: Patient's skin is warm and dry. Respiratory: Airway is patent Respiratory effort is even, unlabored. 15:28 GI: Bowel sounds present X 4 quads. Abd is soft. ap3 Vital Signs: 14:29 Resp 17; Weight 89.36 kg; Height 5 ft. 10 in. (177.80 cm); Pain 9/10; vg1 14:35 BP 148 / 74; Pulse 89; Resp 16; Temp 99.3; Pulse Ox 100% ; vg1 15:56 BP 158 / 82; Pulse 77; Resp 18; Pulse Ox 100% on R/A; tm3 14:29 Body Mass Index 28.27 (89.36 kg, 177.80 cm) vg1 ED Course: 13:30 Patient arrived in ED. as 13:38 [facility] jl9 13:38 Arthur Ty MD is Attending Physician. jl9 14:35 Triage completed. vg1 14:35 Arm band placed on. vg1 14:53 CT Abd/Pelvis - Without Contrast In Process Unspecified. EDMS 15:15 Adia Dean, GHAZAL is Primary Nurse. ap3 15:16 CBC with Diff Sent. vg1 15:16 CMP Sent. vg1 15:16 Lipase Sent. vg1 15:17 Inserted saline lock: 22 gauge in right forearm, using aseptic technique. Blood zm collected. 15:28 Patient has correct armband on for positive identification. Bed in low position. Call ap3 light in reach. Side rails up X 1. Pulse ox on. NIBP on. Door closed. Noise minimized. 16:07 No provider procedures requiring assistance completed. IV discontinued, intact, ap3 bleeding controlled, No redness/swelling at site. Pressure dressing applied. Administered Medications: 16:06 Drug: HYDROcodone-acetaminophen 5 mg-325 mg 1 tabs Route: PO; ap3 16:06 Follow up: Response: No adverse reaction ap3 Medication: 16:07 VIS not applicable for this client. ap3 Outcome: 15:54 Discharge ordered by MD. whalen 16:07 Discharged to home ambulatory. ap3 16:07 Condition: good 16:07 Discharge instructions given to patient, Instructed on discharge instructions, follow up and referral plans. medication usage, Demonstrated understanding of instructions, follow-up care, medications, Prescriptions given X 1. 16:07 Patient left the ED. ap3 Signatures: Dispatcher [employer] EDMS Agustin Martin3 Joya Graff Amanda, RN RN ap3 Coty Munguia RN RN 1 Rochelle Graff John jl9
[2022-10-08] MEDS ORDERED: HYDROCODONE/APAP 5/325 MG TAB ONE (16:03)
[2022-10-08 16:26] VITALS: TEMP 99.3; O2SAT 100
[2022-10-08 16:32] VITALS: BP 158/82
== END 2022-10-08 16:07 | disposition home or self-care (01) ==
LOC: ER 13:21
DX: R10.30 Lower abdominal pain, unspecified (principal); F17.210 Nicotine dependence, cigarettes, uncomplicated
CPT/HCPCS: 36415; 74176; 80053; 81003; 83690; 85025; 99284

== ENCOUNTER 2022-10-19 16:03 | Observation (INO) | payer SELFPAY ==
[2022-10-19 16:59] LABS: Absolute Lymphocytes (CBC) 1.2 K/uL (0.7-4.9); Hematocrit 37.8 % (39.6-49.0); Lymphocytes % 13.9 % (15.3-44.8); MCV 85.2 fL (80-100); RBC Red Blood Cell Count 4.44 M/uL (4.33-5.43)
[2022-10-19 17:03] LABS: Protime INR 1.18
[2022-10-19 17:14] LABS: Albumin 3.3 g/dL (3.4-5.0); Bilirubin Direct 0.3 mg/dL (0-0.2); Bilirubin Total 0.7 mg/dL (0.2-1.0); Magnesium 2.2 mg/dL (1.8-2.4); Potassium 4.1 mmol/L (3.5-5.1); Protein, Total 8.4 g/dL (6.4-8.2); Troponin High Sensitivity 5.3 pg/mL (<58.9)
--- NOTE | 2022-10-19 17:42 | RAD REPORT ---
EXAM DESCRIPTION: CTAbdomen Pelvis W Contrast - 10/19/2022 5:33 pm CLINICAL HISTORY: Abdominal pain. Abd distension COMPARISON: Abdomen Pelvis Wo Contrast dated 10/08/2022 TECHNIQUE: Biphasic CT imaging of the abdomen and pelvis was performed with 100 ml non-ionic IV cont rast. All CT scans are performed using dose optimization technique as appropriate and may include automated exposure control or mA/KV adjustment according to patient size. FINDINGS: The lung bases are clear. The liver demonstrates fatty infiltration. The spleen, pancreas, adrenal glands and kidneys are withi n normal limits. No bowel obstruction, free air, free fluid or abscess. Moderate stool noted throughout the colon. The appendix is normal. Moderate fat containing umbilical hernia. No evidence of significant lymphadenop athy. No suspicious bony findings. IMPRESSION: No acute intra-abdominal or pelvic finding. Moderate fat containing umbilical hernia.
--- NOTE | 2022-10-19 17:45 | RAD REPORT ---
EXAM DESCRIPTION: RAD - Chest Single View - 10/19/2022 5:35 pm CLINICAL HISTORY: ABDOMINAL DISTENTION Chest pain. COMPARISON: No comparisons FINDINGS: Portable technique limits examination quality. The lungs are grossly clear. The heart is normal in size. No displaced fractures. IMPRESSION: No acute intrathoracic process suspected.
--- NOTE | 2022-10-19 18:26 | RAD REPORT ---
EXAM DESCRIPTION: US - Extrem Venous W Compress Krunal - 10/19/2022 6:18 pm CLINICAL HISTORY: SWELLING Bilateral leg edema and swelling. COMPARISON: No comparisons TECHNIQUE: Real-time sonographic interrogation of the left and right lower extremity deep venous sys tems was performed. FINDINGS: Normal compressibility, flow augmentation, phasic flow and spontaneous flow is identified in both the left and right lower extremity deep venous systems. IMPRESSION: No sonographic evidence of left or right lower extremity deep venous thrombosis.
--- NOTE | 2022-10-19 18:32 | EDPHYS ---
Physician Documentation [facility] Name: Virgil Ryan Age: 47 yrs Sex: Male : 1975 Arrival Date: 10/19/2022 Time: 16:04 Bed 13 Private MD: ED Physician Ty Mcmillan HPI: 10/19 16:35 This 47 yrs old Male presents to ER via Ambulatory with complaints of Bloody cp Stools, Low Back Pain, Flank Pain, Abdominal Distention. 16:35 The patient presents with abdominal pain that is diffuse, abdominal distention that is cp diffuse. 16:35 Onset: The symptoms/episode began/occurred 5 day(s) ago. Associated signs and symptoms: cp Pertinent positives: blood in stools, Pertinent negatives: chest pain, constipation, diarrhea, fever, testicular pain, vomiting. Severity of pain: in the emergency department the pain is unchanged despite home interventions. Historical: - Allergies: 16:15 No Known Allergies; ld1 - PMHx: 16:15 Anxiety; Hypertensive disorder; ld1 - PSHx: 16:15 None; ld1 - Immunization history:: Adult Immunizations up to date, Client reports receiving the 2nd dose of the Covid vaccine. - Social history:: Smoking status: Patient reports the use of cigarette tobacco products, denies chronic smoking, but will smoke occasionally, Patient uses alcohol, on a daily basis. ROS: 16:40 Constitutional: Negative for body aches, chills, fever, poor PO intake, weight loss. cp 16:40 Eyes: Negative for injury, pain, redness, and discharge. cp 16:40 ENT: Negative for drainage from ear(s), ear pain, sore throat, difficulty swallowing, difficulty handling secretions. 16:40 Cardiovascular: Negative for chest pain, edema, palpitations. 16:40 Respiratory: Negative for cough, shortness of breath, wheezing. 16:40 Abdomen/GI: Positive for abdominal pain, abdominal distension, blood in stools, Negative for diarrhea, constipation, black/tarry stool. 16:40 Neuro: Negative for altered mental status, dizziness, headache, syncope, weakness. 16:40 All other systems are negative. Exam: 16:45 Constitutional: The patient appears in no acute distress, alert, awake, cp non-diaphoretic, non-toxic, well developed, well nourished. 16:45 Head/Face: Normocephalic, atraumatic. cp 16:45 Eyes: Periorbital structures: appear normal, Conjunctiva: normal, no exudate, no injection, Sclera: no appreciated abnormality, Lids and lashes: appear normal, bilaterally. 16:45 ENT: External ear(s): are unremarkable, Nose: is normal, Mouth: Lips: moist, Oral mucosa: pink and intact, moist, Posterior pharynx: Airway: no evidence of obstruction, patent, swelling, is not appreciated, erythema, is not appreciated. 16:45 Chest/axilla: Inspection: normal. 16:45 Cardiovascular: Rate: normal, Rhythm: regular, Edema: ankle edema, that is mild, JVD: is not appreciated. 16:45 Respiratory: the patient does not display signs of respiratory distress, Respirations: normal, no use of accessory muscles, no retractions, labored breathing, is not present, Breath sounds: are clear throughout, no decreased breath sounds, no stridor, no wheezing. 16:45 Abdomen/GI: Inspection: distension, that is moderate. 16:45 : Rectal exam: Stool: soft, maroon, Guaiac testing: results were positive for occult cp blood. 16:45 Skin: cellulitis, is not appreciated, no rash present. cp 16:45 Neuro: Orientation: to person, place \T\ time. Mentation: is normal, Motor: moves all fours, strength is normal, Sensation: is normal. Exam: 10/20 06:25 Constitutional: The patient appears in no acute distress, alert, awake, non-diaphoretic.cp Vital Signs: 10/19 16:14 BP 159 / 96; Pulse 87; Resp 18; Temp 98.5(O); Pulse Ox 97% on R/A; Weight 95.25 kg; ld1 Height 5 ft. 9 in. (175.26 cm); Pain 7/10; 17:30 BP 152 / 77; Pulse 91; Resp 15; Pulse Ox 98% on R/A; tp1 19:20 BP 139 / 91; Pulse 80; Resp 20; Temp 100(O); Pulse Ox 100% on R/A; Pain 0/10; ke1 16:14 Body Mass Index 31.01 (95.25 kg, 175.26 cm) ld1 MDM: 16:17 Patient medically screened. cp 17:00 Differential diagnosis: anemia, colitis, diverticulitis, ascites. cp 18:35 Data reviewed: vital signs, nurses notes, lab test result(s), EKG, radiologic studies, cp CT scan, plain films. 18:35 Test interpretation: by ED physician or midlevel provider: ECG, plain radiologic cp studies. Counseling: I had a detailed discussion with the patient and/or guardian regarding: the historical points, exam findings, and any diagnostic results supporting the discharge/admit diagnosis, lab results, radiology results, the need for further work-up and treatment in the hospital. Physician consultation: Tra WATERS was contacted at 18:30, regarding admission, to the telemetry unit. patient's condition, and will see patient in ED. 10/19 16:30 Order name: Basic Metabolic Panel; Complete Time: 17:16 10/19 17:16 Interpretation: Normal except: NA 135; GLUC 113. 10/19 16:30 Order name: CBC with Diff; Complete Time: 17:16 10/19 17:16 Interpretation: Normal except: HGB 12.5; HCT 37.8; LYM% 13.9; MN% 14.3. 10/19 16:30 Order name: LFT's; Complete Time: 17:16 10/19 17:17 Interpretation: Normal except: AST 70; ALK 143; BILID 0.3; TP 8.4; ALB 3.3; GLOB 5.1; cp A/G 0.6. 10/19 16:30 Order name: Magnesium; Complete Time: 17:16 10/19 16:30 Order name: NT PRO-BNP; Complete Time: 17:16 10/19 16:30 Order name: PT-INR; Complete Time: 17:16 10/19 18:21 Interpretation: Normal except: PT 13.0. 10/19 16:30 Order name: Troponin HS; Complete Time: 17:16 10/19 16:30 Order name: Ptt, Activated; Complete Time: 17:16 10/19 18:22 Interpretation: PTT 39.4; Reviewed. 10/19 16:30 Order name: Type And Screen; Complete Time: 18:31 10/19 16:30 Order name: Lactate w/ 2H reflex if indic.; Complete Time: 17:16 10/19 19:22 Order name: SARS-COV-2 Antigen Rapid ke1 10/19 20:02 Order name: SARS-COV-2 Antigen Rapid EDIA 10/19 23:06 Order name: Hemoglobin EDIA 10/19 23:06 Order name: Hematocrit EDIA 10/19 16:30 Order name: XRAY Chest (1 view); Complete Time: 18:21 10/19 18:21 Interpretation: Report review. 10/19 16:30 Order name: EKG; Complete Time: 16:31 10/19 16:30 Order name: Cardiac monitoring; Complete Time: 17:08 10/19 16:30 Order name: EKG - Nurse/Tech; Complete Time: 17:08 10/19 16:30 Order name: IV Saline Lock; Complete Time: 17:08 10/19 16:30 Order name: Labs collected and sent; Complete Time: 17:08 10/19 16:30 Order name: O2 Per Protocol; Complete Time: 16:32 10/19 16:30 Order name: O2 Sat Monitoring; Complete Time: 16:32 10/19 16:39 Order name: US Extremity Venous W Compression Krunal; Complete Time: 18:31 10/19 18:31 Interpretation: Report reviewed. 10/19 16:39 Order name: CT Abd/Pelvis - IV Contrast Only; Complete Time: 18:21 10/20 02:51 Order name: CBC with Automated Diff EDMS 10/20 03:40 Order name: Comprehensive Metabolic Panel EDMS Administered Medications: 19:19 Drug: ProTONIX (pantoprazole) 40 mg Route: IVP; Site: right forearm; ke 19:19 Drug: ProTONIX (pantoprazole) 8 mg/hr Route: IV; Rate: 25 ml/hr; Site: right forearm; ke Disposition Summary: 10/19/22 18:31 Hospitalization Ordered Provider: Lars Zhu cp Condition: Stable cp Problem: new cp Symptoms: have improved cp Bed/Room Type: Standard cp Hospitalization Status: Observation(10/19/22 19:56) cp Location: Telemetry/MedSurg (observation)(10/20/22 08:16) bd Room Assignment: (10/20/22 09:15) ja1 Diagnosis - GI Bleed/ Gastrointestinal hemorrhage, unspecified cp - Abdominal pain, unspecified cp - Umbilical hernia without obstruction or gangrene cp Forms: - Medication Reconciliation Form cp - SBAR form cp Signatures: Dispatcher [employer] EDMS lFori Castillo Corey, PA PA cp Garcia, Cindy, RN RN Ty Wong, RN RN ja1 Katlyn Anand RN RN ld1 Vaishnavi Pacheco RN RN ke1 Corrections: (The following items were deleted from the chart) 19:56 18:31 Inpatient Admission cp cp 20:45 18:31 Telemetry/MedSurg (Inpatient) cp cg 20:45 18:31 cp cg 10/20 08:16 10/19 20:45 [facility] ER HOLD cg bd 10/20 08:16 10/19 20:45 ERHOLD- cg 10/20 09:15 08:16 403 ja1
--- NOTE | 2022-10-19 18:32 | ER ---
Nurse's Notes [facility] Name: Virgil Ryan Age: 47 yrs Sex: Male : 1975 Arrival Date: 10/19/2022 Time: 16:04 Bed 13 Private MD: Diagnosis: GI Bleed/ Gastrointestinal hemorrhage, unspecified;Abdominal pain, unspecified;Umbilical hernia without obstruction or gangrene Presentation: 10/19 16:14 Chief complaint: Patient states: Pt reports being at [facility] for alcohol detox - ld1 "I haven't drank in 1 month, I used to drink 24-36 beers daily." C/O abdominal pain, distention, bloody stools, flank pain X 4-5 days.". Coronavirus screen: At this time, the client does not indicate any symptoms associated with coronavirus-19. Ebola Screen: No symptoms or risks identified at this time. Initial Sepsis Screen: Does the patient meet any 2 criteria? No. Patient's initial sepsis screen is negative. Does the patient have a suspected source of infection? No. Patient's initial sepsis screen is negative. Risk Assessment: Do you want to hurt yourself or someone else? Patient reports no desire to harm self or others. Onset of symptoms was October 19, 2022. 16:14 Method Of Arrival: Ambulatory ld1 16:14 Acuity: LACY 3 ld1 Triage Assessment: 16:15 General: Appears in no apparent distress. comfortable, Behavior is calm, cooperative, ld1 appropriate for age. Pain: Complains of pain in back and abdomen Pain does not radiate. Pain currently is 7 out of 10 on a pain scale. Quality of pain is described as throbbing. EENT: No signs and/or symptoms were reported regarding the EENT system. Neuro: Level of Consciousness is awake, alert, obeys commands, Oriented to person, place, time, situation. Cardiovascular: Capillary refill < 3 seconds Patient's skin is warm and dry. Respiratory: Airway is patent Respiratory effort is even, unlabored. GI: Abdomen is round distended, Reports bloody stool, nausea. : No signs and/or symptoms were reported regarding the genitourinary system. Derm: No signs and/or symptoms reported regarding the dermatologic system. Musculoskeletal: No signs and/or symptoms reported regarding the musculoskeletal system. Historical: - Allergies: 16:15 No Known Allergies; ld1 - PMHx: 16:15 Anxiety; Hypertensive disorder; ld1 - PSHx: 16:15 None; ld1 - Immunization history:: Adult Immunizations up to date, Client reports receiving the 2nd dose of the Covid vaccine. - Social history:: Smoking status: Patient reports the use of cigarette tobacco products, denies chronic smoking, but will smoke occasionally, Patient uses alcohol, on a daily basis. Screenin:31 Abuse screen: Denies threats or abuse. Denies injuries from another. Nutritional tp1 screening: No deficits noted. Tuberculosis screening: No symptoms or risk factors identified. Fall Risk None identified. Assessment: 16:28 General: Appears in no apparent distress. comfortable, Behavior is calm, cooperative. tp1 Pain: Complains of pain in low back area Pain radiates to abdomen Pain currently is 10 out of 10 on a pain scale. Quality of pain is described as pressure, Is continuous. Neuro: Level of Consciousness is awake, alert, obeys commands, Oriented to person, place, time, situation. Cardiovascular: Patient's skin is warm and dry. Respiratory: Airway is patent Respiratory effort is even, unlabored. GI: Abdomen is round distended, Abdomen is tender to palpation. GI: Reports bloody stool. : No signs and/or symptoms were reported regarding the genitourinary system. EENT: No signs and/or symptoms were reported regarding the EENT system. Derm: Skin is pink, warm \\T\\ dry. Musculoskeletal: Circulation, motion, and sensation intact. 17:06 Musculoskeletal: Swelling present in right leg and left leg. tp1 17:20 Reassessment: Patient appears in no apparent distress at this time. No changes from tp1 previously documented assessment. Patient and/or family updated on plan of care and expected duration. Pain level reassessed. Patient is alert, oriented x 3, equal unlabored respirations, skin warm/dry/pink. Vital Signs: 16:14 BP 159 / 96; Pulse 87; Resp 18; Temp 98.5(O); Pulse Ox 97% on R/A; Weight 95.25 kg; ld1 Height 5 ft. 9 in. (175.26 cm); Pain 7/10; 17:30 BP 152 / 77; Pulse 91; Resp 15; Pulse Ox 98% on R/A; tp1 19:20 BP 139 / 91; Pulse 80; Resp 20; Temp 100(O); Pulse Ox 100% on R/A; Pain 0/10; ke1 16:14 Body Mass Index 31.01 (95.25 kg, 175.26 cm) ld1 ED Course: 16:04 Patient arrived in ED. am2 16:06 Arthur Carrillo PA is PHCP. cp 16:06 Ty Mcmillan MD is Attending Physician. cp 16:15 Triage completed. ld1 16:15 Arm band placed on right wrist. ld1 16:27 Sienna Lewis, GHAZAL is Primary Nurse. tp1 16:30 Patient has correct armband on for positive identification. Placed in gown. Bed in low tp1 position. Call light in reach. 17:06 No provider procedures requiring assistance completed. Inserted saline lock: 22 gauge tp1 in right forearm, using aseptic technique. Blood collected. 17:35 CT Abd/Pelvis - IV Contrast Only In Process Unspecified. EDMS 17:37 XRAY Chest (1 view) In Process Unspecified. EDMS 18:03 US Extremity Venous W Compression Krunal In Process Unspecified. EDMS 18:30 Lars Zhu is Hospitalizing Provider. cp 19:41 SARS-COV-2 Antigen Rapid Sent. ke1 Administered Medications: 19:19 Drug: ProTONIX (pantoprazole) 40 mg Route: IVP; Site: right forearm; ke1 19:19 Drug: ProTONIX (pantoprazole) 8 mg/hr Route: IV; Rate: 25 ml/hr; Site: right forearm; ke1 Medication: 17:07 VIS not applicable for this client. tp1 Outcome: 18:31 Decision to Hospitalize by Provider. cp 10/20 11:29 Patient left the ED. iw Signatures: Dispatcher [employer] EDMS Natalee Bustos RN RN iw Arthur Carrillo PA PA cp Adia Alejandro am2 Katlyn Anand RN RN ld1 Sienna Lewis RN RN tp1 Vaishnavi Pacheco RN RN ke1
[2022-10-19] MEDS ORDERED: NA CHLORIDE 0.9% 250 ML ONE (18:59)
[2022-10-19] MEDS ORDERED: PANTOPRAZOLE 40 MG INJ ONE (18:59)
--- NOTE | 2022-10-19 19:06 | P.HP ---
Certification for Inpatient Patient admitted to: Observation With expected LOS: <2 Midnights Patient will require the following post-hospital care: None Practitioner: I am a practitioner with admitting privileges, knowledge of patient current condition, hospital course, and medical plan of care. Services: Services provided to patient in accordance with Admission requirements found in Title 42 Section 412.3 of the Code of Federal Regulations Patient History Date of Service: 10/19/22 Reason for admission: LGIB History of Present Illness: 47-year-old male with history of hypertension presents to the emergency department for right red blood per rectum. He reports bilateral flank pain for the last 1 week or so has been having approximately 3 bowel movements per day with bright red blood present. Is evaluated in the emergency department his labs were significant for hemoglobin 12.5 medical 37.8 INR 1.[address] abdomen pelvis, chest x-ray negative for acute findings negative for DVT bilaterally. Rectal exam negative for obvious external hemorrhoids guaiac positive stool with bright red blood present. ED provider discussed case with GI who recommended Protonix drip, observation. Allergies No Known Gordy Allergy (Uncoded 04/10/18 18:04) Unknown - Past Medical/Surgical History -: Hypertension -: Alcohol abuse -: None Psychosocial/ Personal History: Patient currently at [facility] rehab - Family History Father -: Cancer - Social History Smoking Status: Current some day smoker Alcohol use: Yes CD- Drugs: No Caffeine use: No Place of Residence: Home Review of Systems 10-point ROS is otherwise unremarkable Gastrointestinal: Abdominal Pain, Hematochezia, As per HPI Physical Examination - Physical Exam General: Alert, In no apparent distress, Oriented x3 HEENT: Atraumatic, PERRLA, Mucous membr. moist/pink, EOMI, Sclerae nonicteric Neck: Supple, 2+ carotid pulse no bruit, No LAD, Without JVD or thyroid abnormality Respiratory: Clear to auscultation bilaterally, Normal air movement Cardiovascular: Regular rate/rhythm, Normal S1 S2 Capillary refill: <2 Seconds Gastrointestinal: Normal bowel sounds, No tenderness Musculoskeletal: No tenderness Integumentary: No rashes Neurological: Normal speech, Normal strength at 5/5 x4 extr, Normal tone, Normal affect - Studies Laboratory Data (last 24 hrs) 10/19/22 16:41: PT 13.0 H, INR 1.18, APTT 39.4 H 10/19/22 16:41: WBC 8.60, Hgb 12.5 L, Hct 37.8 L, Plt Count 196 10/19/22 16:41: Sodium 135 L, Potassium 4.1, BUN 8, Creatinine 0.93, Glucose 113 H, Magnesium 2.2, Total Bilirubin 0.7, AST 70 H, ALT 34, Alkaline Phosphatase 143 H Assessment and Plan - Plan Assessment: Lower GI bleed/bright red blood per rectum History of alcohol use disorder Plan: Lower GI bleed/bright red blood per rectum: We will monitor H&H closely, repeat tonight and in the morning. GI recommended Protonix drip which has been initiated. ED physician discussed case with GI. N.p.o. after midnight. History of alcohol use disorder: Patient currently in rehab for alcoholism reports his last drink was 2 weeks ago. DVT PPX: SCD Code status: Full Discharge Plan: Home Plan to discharge in: 24 Hours - Advance Directives Does patient have a Living Will: No Does patient have a Durable POA for Healthcare: No - Code Status/Comfort Care Code Status Assessed: Yes (Full code) Critical Care: No Time Spent Managing Pts Care (In Minutes): 70
[2022-10-19 20:02] LABS: SARS-CoV-2 Antigen Rapid Res Negative (Negative)
[2022-10-19] MEDS ORDERED: PANTOPRAZOLE INJ 80 MG in NA CHLORIDE 0.9% 250 ML IV SCH (22:21)
[2022-10-19] MEDS ORDERED: ONDANSETRON 4 MG/2 ML VIAL IV PRN (22:21)
[2022-10-19] MEDS ORDERED: MORPHINE 2 MG/ML SYR IV PRN (22:21)
[2022-10-19 22:32] VITALS: BMI 31.0
[2022-10-19 23:03] LABS: Hematocrit 35.1 % (39.6-49.0)
[2022-10-20 01:22] VITALS: TEMP 98.6
[2022-10-20 02:49] LABS: Absolute Lymphocytes (CBC) 1.2 K/uL (0.7-4.9); Hematocrit 34.4 % (39.6-49.0); MCV 85.6 fL (80-100); MPV 8.9 fL (7.6-11.3); RBC Red Blood Cell Count 4.02 M/uL (4.33-5.43)
[2022-10-20 03:12] LABS: Albumin 2.9 g/dL (3.4-5.0); Bilirubin Total 0.9 mg/dL (0.2-1.0); Potassium 3.7 mmol/L (3.5-5.1); Protein, Total 7.2 g/dL (6.4-8.2)
[2022-10-20] MEDS ORDERED: PANTOPRAZOLE INJ 80 MG in NA CHLORIDE 0.9% 250 ML IV SCH (08:00)
[2022-10-20 08:04] VITALS: BP 113/60
--- NOTE | 2022-10-20 09:46 | P.DS ---
Admission Date: 10/19/22 Discharge Date: 10/20/22 Disposition: ROUTINE DISCHARGE Discharge Condition: FAIR Reason for Admission: LGIB - Problems (1) Lower GI bleed Status: Acute (2) History of alcohol abuse Status: Acute (3) Fatty liver Status: Acute (4) Acute blood loss anemia Status: Acute Brief History of Present Illness: 47-year-old male with history of hypertension presents to the emergency department for right red blood per rectum. He reports bilateral flank pain for the last 1 week or so has been having approximately 3 bowel movements per day with bright red blood present. Patient was evaluated in the emergency department his labs were significant for hemoglobin 12.5 medical 37.8 INR 1.[address] abdomen pelvis, chest x-ray negative for acute findings negative for DVT bilaterally. Rectal exam negative for obvious external hemorrhoids, guaiac positive stool with bright red blood present. ED provider discussed case with GI who recommended Protonix drip, observation. Hospital Course: Patient placed on observation on the medical floor. He had no more bleeding episode during the hospital stay. Hemoglobin dropped slightly and stabilized at 11. Case discussed with GI Dr. Leiva who recommended discharge and follow-up with him in the office for outpatient work-up. Vitals are stable for discharge. Vital Signs/Physical Exam: Temp Pulse Resp BP Pulse Ox 98.6 F 74 19 113/60 96 10/20/22 08:00 10/20/22 08:00 10/20/22 08:00 10/20/22 08:00 10/20/22 08:00 General: Alert, In no apparent distress, Oriented x3 HEENT: Mucous membr. moist/pink Neck: Supple, JVD not distended Respiratory: Clear to auscultation bilaterally, Normal air movement Cardiovascular: Regular rate/rhythm, Normal S1 S2 Gastrointestinal: Soft and benign, Non-distended, No tenderness Integumentary: Other (Right leg venous stasis dermatitis) Neurological: Normal strength at 5/5 x4 extr Laboratory Data at Discharge: WBC 6.90 K/uL (4.3-10.9) 10/20/22 02:14 Hgb 11.4 g/dL (13.6-17.9) L 10/20/22 02:14 Hct 34.4 % (39.6-49.0) L 10/20/22 02:14 Plt Count 178 K/uL (152-406) 10/20/22 02:14 PT 13.0 SECONDS (9.5-12.5) H 10/19/22 16:41 INR 1.18 10/19/22 16:41 APTT 39.4 SECONDS (24.3-36.9) H 10/19/22 16:41 Sodium 138 mmol/L (136-145) 10/20/22 02:14 Potassium 3.7 mmol/L (3.5-5.1) 10/20/22 02:14 BUN 7 mg/dL (7-18) 10/20/22 02:14 Creatinine 0.93 mg/dL (0.55-1.3) 10/20/22 02:14 Glucose 91 mg/dL (74-106) 10/20/22 02:14 Magnesium 2.2 mg/dL (1.8-2.4) 10/19/22 16:41 Total Bilirubin 0.9 mg/dL (0.2-1.0) 10/20/22 02:14 AST 60 U/L (15-37) H 10/20/22 02:14 ALT 32 U/L (12-78) 10/20/22 02:14 Alkaline Phosphatase 121 U/L (45-117) H 10/20/22 02:14 Physician Discharge Instructions: PROBLEM: GI Bleed GOAL: Clear understanding of disease process INSTRUCTIONS: Ok to discharge home Follow up with Primary Care Provider in 1-2 weeks Please return to the ED if you continue to bleed. Otherwise follow up with Dr. Leiva within 1 week Call [phone] for any questions regarding hospital stay Diet: AHA Activity: As tolerated IMMUNIZATION Influenza Vaccine Indicated: Influenza Vaccine Given: Date Given: Pneumonia Vaccine Indicated: Pneumonia Vaccine Given: Date Given: Follow up with a Film Editor Supervisor of your choice: JAGDISH LEIVA MD [address] [place] [address] RODGER WALTER, [address] [place] [address] Diet: AHA Activity: Ad rush Followup: NONE,NONE [Primary Care Provider] - Jagdish Leiva MD [ACTIVE - CAN ADMIT] - 1 Week (Please call Dr. Leiva's office for appointment.)
[2022-10-20 11:39] VITALS: O2SAT 100
--- NOTE | 2022-10-20 16:26 | EKG ---
Test Date: 2022-10-19 Test Time: 16:53:07 Formula Technician: TP MEASUREMENT RESULTS: Intervals: Rate: 84 OH: 154 QRSD: 84 QT: 386 QTc: 456 Buck[place]: P: 66 OH: 154 QRS: 92 T: 69 INTERPRETIVE STATEMENTS: Normal sinus rhythm Rightward axis Borderline ECG No previous ECG available for comparison Electronically Signed On 10-20-22 16:23:05 EMERGENCY PREPAREDNESS MANAGER by Yaw Davenport
== END 2022-10-20 11:30 | disposition home or self-care (01) ==
LOC: ER 16:03 → ERHOLD 18:59 → 4TH 10-20 08:55 → ERHOLD 10-20 08:55
PROVIDERS: ADMIT Internal Medicine; ATTEND Internal Medicine
DX: K92.2 Gastrointestinal hemorrhage, unspecified (principal); I10 Essential (primary) hypertension; F10.10 Alcohol abuse, uncomplicated; K76.0 Fatty (change of) liver, not elsewhere classified; D62 Acute posthemorrhagic anemia; Z20.822 Contact with and (suspected) exposure to COVID-19; Z80.9 Family history of malignant neoplasm, unspecified
CPT/HCPCS: 36415; 71045; 74177; 80048; 80053; 80076; 83605; 83735; 83880; 84484; 85014; 85018; 85025; 85610; 85730; 86850; 86900; 86901; 87811; 93005; 93970; C9113; G0378; J7050; Q9967